=== PATIENT | female | born 1955 | race African-American/Black ===

== ENCOUNTER 2019-07-26 12:54 | Observation (INO) | payer MEDICARE, MEDICAID ==
--- NOTE | 2019-07-26 13:30 | RAD ---
Exam: Chest one view HISTORY:Right-sided weakness. Facial droop. Comparison: 01/09/2015 FINDINGS: Cardiac silhouette:Cardiomegaly. A left-sided transvenous pacemaker. Aorta: Atherosclerosis of the aortic knob Pulmonary vessels: Normal Costophrenic angles: Clear LUNGS: No masses or consolidation. Pneumothorax: None Osseous abnormalities: None IMPRESSION: 1. No acute cardiopulmonary process. 2. Atherosclerosis.
[2019-07-26 15:07] LABS: Bacteria/HPF 2+ HPF (None Seen); Bilirubin Negative (Negative); Blood, Urine Negative (Negative); Clarity Clear (Clear); Glucose, Urine (Dipstick) 30 mg/dL (Negative); Leukocyte Negative Leu/uL (Negative); Nitrite Negative (Negative); Protein, Urine (Dipstick) 300 mg/dL (Neg-Trace); RBC/HPF 0-3 HPF (0-3); Squamous Epithelial 0-3 HPF (0-3); Urobilinogen Normal mg/dL (Less than 2); WBC/HPF 0-3 HPF (0-3)
[2019-07-26 15:51] LABS: #Basophils 0.1 thou/uL (0.0-0.2); #Eosinphils 0.4 thou/uL (0.0-0.7); #Lymphocytes 1.9 thou/uL (1.20-3.40); #Monocytes 0.4 thou/uL (0.11-0.59); #Neutrophils 7.5 thou/uL (1.40-6.50); %Basophils 0.9 % (0.0-1.0); %Eosinophils 3.6 % (0.0-10.0); %Lymphocytes 18.7 % (21.0-51.0); %Monocytes 3.4 % (0.0-10.0); %Neutrophils 73.3 % (42.0-75.0); Hemoglobin 11.5 g/dL (12.0-16.0); Mean Corpuscular HGB CONC 31.6 g/dL (32.0-36.0); Mean Corpuscular Volume 88.6 fL (78.0-98.0); Platelet Count 188 thou/uL (130-400); RBC Distribution Width 14.3 % (11.5-14.5); Red Blood Cell (RBC) Count 4.11 mill/uL (4.20-5.40); White Blood Cell (WBC) Count 10.3 thou/uL (4.8-10.8)
[2019-07-26] MEDS ORDERED: Aspirin 300 MG Suppository ONE (15:53)
[2019-07-26 16:00] LABS: INR-International Normal Ratio 1.1; PTT 29.2 SEC (22.9-36.1); Prothrombin Time 13.9 SEC (12.0-14.7)
[2019-07-26 16:06] LABS: ALT (SGPT) 8 U/L (8-55); AST (SGOT) 15 U/L (5-34); Albumin 3.6 g/dL (3.4-4.8); Alkaline Phosphatase 109 U/L (40-110); Anion Gap 10 mmol/L (10-20); BUN (Urea Nitrogen) 34 mg/dL (9.8-20.1); Bilirubin, Total 0.3 mg/dL (0.2-1.2); CK (CPK) 61 U/L (29-168); Calc. Creatinine Clearance 0 mL/min (70-130); Calcium 8.5 mg/dL (7.8-10.44); Carbon Dioxide 23 mmol/L (23-31); Chloride 112 mmol/L (98-107); Estimated GFR-MDRD 25; Globulin 3.7 g/dL (2.4-3.5); Glucose 132 mg/dL (80-115); Potassium 5.3 mmol/L (3.5-5.1); Protein, Total 7.3 g/dL (6.0-8.3); Sodium 140 mmol/L (136-145)
[2019-07-26 16:15] LABS: CKMB 1.3 ng/mL (0-6.6)
[2019-07-26] MEDS ORDERED: Acetaminophen 650 MG Suppository PR PRN (17:44)
[2019-07-26] MEDS ORDERED: Bisacodyl 5 MG TAB PO PRN (17:44)
[2019-07-26] MEDS ORDERED: Acetaminophen 325 MG TAB PO PRN ×2 (17:44→20:50)
[2019-07-26] MEDS ORDERED: Dextrose 50% Abboject 50 ML SYRINGE SLOW IVP PRN (18:09)
[2019-07-26] MEDS ORDERED: Dextrose 5% in Water 1,000 ML IV PRN (18:09)
[2019-07-26] MEDS ORDERED: HumaLOG 300 UNITS/3 ML VIAL SC PRN (18:09)
--- NOTE | 2019-07-26 18:31 | HP ---
PRIMARY CARE PROVIDER: Angelica Feliciano MD CHIEF COMPLAINT: Slurred speech. HISTORY OF PRESENT ILLNESS: Ms. Dumont is a pleasant 64-year-old lady, who was seen at [facility] on July 26, 2019. She is bedbound and lives at [facility]. Her sisters are with her in the emergency room. They provided most of the history. The patient is also able to verbalize, although she does have some word-finding difficulty. The patient's sisters report that her baseline is that she is bedbound and has difficulty speaking, but they report that her speech is worse today. She also reports that she had a hemorrhagic stroke about 8 or 10 years ago and since then has been at [facility]. The patient denies any chest pain or shortness of breath. She denies any nausea or vomiting. She denies any abdominal pain. REVIEW OF SYSTEMS: All systems were reviewed and found to be negative except for the pertinent positives mentioned above. 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 PAST SURGICAL HISTORY: Hysterectomy, PEG tube placement and subsequent removal, cardiac catheterization, and pacemaker insertion for sick sinus syndrome. SOCIAL HISTORY: No history of tobacco use, alcohol use, or recreational drug use. FAMILY HISTORY: No family history of premature coronary artery disease. ALLERGIES: NO KNOWN DRUG ALLERGIES. CURRENT MEDICATIONS: 1. Acetaminophen p.r.n. 2. Aspirin 81 mg daily. 3. Hydralazine 50 mg 3 times a day. 4. Iron 325 mg daily. 5. Lantus insulin 10 units subcutaneously daily. 6. Levetiracetam 500 mg 2 times a day. 7. MiraLAX 17 g daily. 8. Sertraline 50 mg daily. 9. Simvastatin 10 mg at bedtime. 10. Zofran p.r.n. 11. Vitamin B complex one tablet daily. 12. Senokot S one tablet daily. 13. Procardia XL 60 mg 2 times a day. 14. Artificial Tears p.r.n. 15. Bisacodyl rectally p.r.n. 16. Chlorhexidine mouthwash. 17. Coreg 3.125 mg 2 times a day and p.r.n. PHYSICAL EXAMINATION: GENERAL: On examination, Ms. Dumont is awake and alert, not in acute distress. VITAL SIGNS: Blood pressure is 149/93, pulse 80, respiratory rate 14, and oxygen saturation 100% on room air, and she is afebrile. EYES: No scleral icterus. No conjunctival pallor. ENT: Moist mucosal membranes. No oropharyngeal erythema or exudates. NECK: Supple, nontender. Trachea is midline. RESPIRATORY: Accessory muscles of breathing are not active. Chest wall movements are symmetric bilaterally. Lungs are clear to auscultation without wheeze, rhonchi, or crepitations. CARDIOVASCULAR: S1 and S2 are heard, regular. Peripheral pulses palpable. ABDOMEN: Soft, distended, nontender. Bowel sounds heard. NEUROLOGIC: The patient has word-finding difficulty. The patient has slight left facial droop. Otherwise, cranial nerves II through XII are intact. Power is 4/5 in the right upper extremity, 3/5 in both lower extremities and 3/5 in the left upper extremity. Deep tendon reflexes are 2+, plantars downgoing bilaterally. MUSCULOSKELETAL: Power in the 4 extremities as described above. SKIN: No rashes or subcutaneous nodules. LYMPHATIC: No cervical lymphadenopathy. PSYCHIATRIC: Normal mood. Normal affect. The patient is oriented to person and to place, not to time. LABORATORY DATA: Ms. Dumont's labs and investigations were reviewed. I reviewed her electrocardiogram, which shows junctional rhythm with a ventricular rate of 60. I do not find pacemaker spikes. I also reviewed her chest x-ray, which does not show any pulmonary infiltrates. She had noncontrast CT scan of the brain, which did not show any acute findings. She has an unremarkable CBC. INR 1.1. Elevated potassium of 5.3, normal sodium, elevated blood urea nitrogen of 34, elevated creatinine of 2.37, last known creatinine 2.43 in December 2014. Indeterminate troponin I of 0.124, she had indeterminate troponins in the past as well. Urinalysis that is negative for nitrite and leukocyte esterase. ASSESSMENT AND PLAN: Ms. Dumont is a pleasant 64-year-old lady, who was seen at [facility] on July 26, 2019. Her problem list includes: 1. Slurred speech: Family reports that her speech is slurred compared to her baseline, and it started earlier today. She was not a candidate for tPA administration according to emergency room physician. She had a noncontrast CT scan of the brain, which was fairly unremarkable. She will be admitted to the hospital for further management. We will check 2D echocardiogram and carotid Dopplers. Cannot obtain MRI because of pacemaker. We will consult Neurology Service for opinion and help with management. We will continue her aspirin for now. We will also continue statin once the dose is clarified. 2. Diabetes mellitus, type 2: We will start Accu-Cheks and insulin sliding scale. 3. Hypertension: We will resume home medications, monitor vital signs and titrate antihypertensives as needed. 4. Chronic kidney disease, stage 4: Appears stable. 5. Seizure disorder: Continue Keppra. 6. History of congestive heart failure: Continue furosemide. 7. Dyslipidemia: Continue simvastatin. 8. History of lupus: Appears to be stable. 9. Interrogate pacemaker. Many thanks for allowing me to participate in your patient's care. Please feel free to contact me with any questions or concerns. LEVEL OF RISK: High. LEVEL OF COMPLEXITY: High. Job ID: [id number]
[2019-07-26 20:20] VITALS: BMI 33.9
[2019-07-26] MEDS ORDERED: BISACODYL 10 MG PR PRN (20:50)
[2019-07-26] MEDS ORDERED: Senokot S 8.6-50 MG TAB PO PRN (20:50)
[2019-07-26] MEDS ORDERED: Ondansetron ODT 4 MG TAB PO PRN (20:50)
[2019-07-26] MEDS ORDERED: Artificial Tears 18 DROP/0.9 ML EA EYE PRN (20:50)
[2019-07-26] MEDS ORDERED: Bisacodyl 10 MG SUPP PR PRN (20:57)
[2019-07-26] MEDS ORDERED: Simvastatin 20 MG TAB PO SCH (21:00)
[2019-07-26] MEDS ORDERED: Non-Formulary Item 1 EACH (Insulin Glargine,Hum.Rec.Anlog [Lantus Solostar] 10 UNIT) SC SCH (21:00)
[2019-07-26] MEDS ORDERED: Insulin Glargine 10 UNITS in Pre-Filled Syringe 1 EACH SC SCH (22:00)
[2019-07-26] MEDS ORDERED: Chlorhexidine Gluconate 15 ML UDCUP SSP SCH (22:00)
[2019-07-26] MEDS ORDERED: NIFEdipine XL 60 MG TAB PO SCH (22:00)
[2019-07-26] MEDS: Carvedilol 3.125 MG TAB PO SCH (22:14)
[2019-07-26] MEDS: levETIRAcetam 500 MG TAB PO SCH (22:14)
[2019-07-26] MEDS: hydrALAZINE 25 MG TAB PO SCH (22:14)
[2019-07-26] MEDS: Ferrous Sulfate 325 MG TAB PO SCH (22:14)
[2019-07-27 06:15] LABS: Mean Corpuscular Volume 87.4 fL (78.0-98.0); Mean Platelet Volume 10.2 fL (7.4-10.4); Platelet Count 146 thou/uL (130-400); RBC Distribution Width 14.3 % (11.5-14.5); Red Blood Cell (RBC) Count 3.93 mill/uL (4.20-5.40); White Blood Cell (WBC) Count 10.3 thou/uL (4.8-10.8)
[2019-07-27 06:29] LABS: Anion Gap 11 mmol/L (10-20); BUN (Urea Nitrogen) 33 mg/dL (9.8-20.1); Calc. Creatinine Clearance 35 mL/min (70-130); Calcium 8.3 mg/dL (7.8-10.44); Carbon Dioxide 21 mmol/L (23-31); Cardiac Risk 3.1 (Less than 4.5); Chloride 113 mmol/L (98-107); Cholesterol 118 mg/dl (< 200 Desired); Estimated GFR-MDRD 27; Glucose 88 mg/dL (80-115); HDL Cholesterol 38 mg/dL (>60 Neg Risk); LDL Cholesterol, Calculated 63 mg/dL; Potassium 4.6 mmol/L (3.5-5.1); Sodium 140 mmol/L (136-145); Triglycerides 85 mg/dL (Less than 150)
[2019-07-27 07:01] LABS: Eosinophils 4 % (0-10); Lymphocytes 28 % (21-51); MDiff Complete? YES; Monocytes 9 % (0-10); Neutrophil 59 % (42-75)
[2019-07-27] MEDS: levETIRAcetam 500 MG TAB PO SCH (08:33)
[2019-07-27] MEDS: hydrALAZINE 25 MG TAB PO SCH ×2 (08:33→16:10)
[2019-07-27] MEDS: Carvedilol 3.125 MG TAB PO SCH (08:33)
[2019-07-27] MEDS: Ferrous Sulfate 325 MG TAB PO SCH (08:34)
--- NOTE | 2019-07-27 08:38 | ULT ---
Carotid duplex sonogram HISTORY: CVA. Vascular disease. FINDINGS: Right: Minimal plaque. Color and spectral Doppler evaluation, peak systolic velocity of 101 cm/s, and IC to CC ratio of 1.5 suggest no hemodynamically significant stenosis within the extracranial right ICA. Antegrade flow within the vertebral artery. Left: Mild plaque. Color and spectral Doppler evaluation, peak systolic velocity of 68 cm/s, and IC t o CC ratio 1.1 suggest no hemodynamically significant stenosis within the extracranial left ICA. Antegrade flow within the vertebral artery. IMPRESSION: Atherosclerosis. No sonographic evidence of significant extracranial ICA stenosis.
[2019-07-27] MEDS ORDERED: Chlorhexidine Gluconate 15 ML UDCUP SSP SCH (09:00)
[2019-07-27] MEDS ORDERED: NIFEdipine XL 60 MG TAB PO SCH (09:00)
[2019-07-27] MEDS ORDERED: Aspirin 81 mg Enteric Coated Tablet PO SCH ×2 (09:00)
[2019-07-27] MEDS ORDERED: Polyethylene Glycol 3350 17 GM Packet PO SCH (09:00)
[2019-07-27] MEDS ORDERED: Stress 600 With Zinc 1 TAB PO SCH (09:00)
[2019-07-27 12:17] VITALS: TEMP 98
--- NOTE | 2019-07-27 14:16 | CON ---
DATE OF TELEMEDICINE CONSULTATION WITH WILLIAM MATUTE: 07/27/2019 CHIEF COMPLAINT: Possible acute stroke. HISTORY OF PRESENT ILLNESS: The patient came from a fdc and she is mostly bedridden at baseline. She has difficulty with speaking on getting the right words out, but family brought her here to the hospital for worsening of speech. She had a hemorrhagic stroke a few years ago and results of that is her bedridden state and she lives in [facility]. No history of any numbness or tingling. I do not think, she is a reliable historian based on her difficulty with expressive aphasia. PREVIOUS MEDICAL HISTORY: Congestive heart failure, diabetes type 2, hypertension, seizure disorder, lupus and chronic diastolic heart failure, hypertensive heart disease, dyslipidemia, left thalamic hemorrhagic stroke with residual right- sided weakness and dysarthria. PAST SURGICAL HISTORY: Hysterectomy, PEG tube placement and then removal, cardiac cath and pacemaker insertion for sick sinus syndrome. SOCIAL HISTORY: Nonsmoker. No alcohol. Lives at a fdc. FAMILY HISTORY: Unknown, but it states there is no known family history of coronary artery disease in the family per her chart. ALLERGIES: NO KNOWN DRUG ALLERGIES. MEDICATIONS: At home; 1. Aspirin 81 mg for stroke prophylaxis. 2. She is also on Procardia. 3. Senokot. 4. Coreg. 5. MiraLAX. 6. Sertraline. 7. Simvastatin 10 mg. 8. Tylenol PM. 9. Hydralazine. 10. Iron. REVIEW OF SYSTEMS: PULMONARY: Negative for cough or shortness of breath. GI: Negative for nausea, vomiting, or diarrhea. NEUROLOGIC: Positive for worsening of speech. DERMATOLOGIC: Negative for any skin rash. OPHTHALMOLOGIC: Negative for any vision symptoms. LABORATORY DATA: White count 10.3, hemoglobin 11, hematocrit 34.3, platelet count 146. Coags within normal range. Chemistry; sodium 140, potassium 4.6, chloride 113, bicarb 21, BUN 33, creatinine 2.19, and glucose 113. Lipid profile within normal limits. PHYSICAL EXAMINATION: VITAL SIGNS: Temperature was 98, blood pressure 176/59, pulse is 63. GENERAL APPEARANCE: Thin built well-nourished lady, who is comfortable in bed and is responsive and talks. She has expressive aphasia. CHEST: Clear vesicular breathing. CARDIOVASCULAR: S1 and S2 heard. No murmurs. ABDOMEN: Soft. NEUROLOGICAL: Higher intellectual function. She has some aphasia, therefore, has difficulty with communicating well. She can say the words, but cannot complete full sentences properly, which is my observation. She also had difficulty with orientation to place, person, and time. She kept saying she was at [facility]. Cranial nerves, pupils 3 mm bilaterally. Extraocular movements were normal and normal sensation of face bilaterally. She had right facial droop. Tongue midline. No atrophy noted. Normal elevation of palate. Motor exam, bulk normal; tone, contracture in the left hand and elbow, has also contracture in the left leg. This seems to be old finding. Motor exam strength lee. Deltoid 3, triceps 3, biceps 4, wrist extension 3, wrist flexion 2, finger extension and flexion 0, iliopsoas 4, hamstrings 4, quadriceps 4, ankle dorsiflexion and plantar flexion 3. All of this is on as noted on the left side. On the right side, deltoid 5, triceps 4, biceps 5, wrist extension 4, wrist flexion 5, finger extension 5, finger flexion 5; iliopsoas, hamstrings, quadriceps, ankle dorsiflexion, plantar flexion were 5 on the right side. She also had eversion of her left foot and contractures. Deep tendon reflexes 3+ at knee jerks, right ankle 3+, left ankle 4-beat clonus and upper extremities 2+ bilaterally. Sensory is normal bilaterally. Cerebellar was difficult for her to perform, but there was no cerebellar signs noted. IMPRESSION: The patient is a 64-year-old lady, who is currently waiting on her MRI scan this morning at the time of my evaluation and she did not have a CT of the head here, but had an outside film which I did not have access to. At this time due to difficulty and inability to obtain an MRI scan, the patient may have had a minor dysarthric event and we are unable to establish definite stroke. At this time, diagnosis is likely TIA and she has a right-sided and left-sided weakness with contractures bilaterally, likely due to bedridden state. RECOMMENDATIONS: Please give her aspirin 325 mg per day and also give her 20 mg of statin, and she can see the neurologist, Dr. Jones, as outpatient. Job ID: [id number] [facility]
[2019-07-27 16:15] VITALS: BP 135/51
--- NOTE | 2019-07-27 16:28 | DIS ---
DATE OF ADMISSION: 07/26/2019 DATE OF DISCHARGE: 07/27/2019 PRIMARY CARE PROVIDER: Angelica Feliciano MD DISCHARGE DIAGNOSIS: Transient ischemic attack. CONDITION: Condition of patient at the time of discharge: Stable. I assessed Ms. Dumont on the day of discharge. She denies any chest pain or shortness of breath. Vital signs are stable. S1 and S2 are heard, regular. Lungs are clear to auscultation bilaterally. FOLLOWUP APPOINTMENTS: With primary care provider in 3 days' time. CONSULTATIONS DURING THIS HOSPITALIZATION: Neurology, Dr. Zahra Faria. HOSPITAL COURSE: Ms. Dumont is a pleasant 64-year-old lady, who was admitted to [facility] on July 26, 2019, for slurred speech. Please refer to my history and physical note dated July 26, 2019, for further details. Her speech improved following admission. She was seen by Neurology Service. She had carotid Dopplers, which did not show any hemodynamically significant stenosis. She also had a 2D echocardiogram. The report is pending at the time of this dictation. She is advised to follow up with primary care provider for the results. She did not have an MRI because she has a pacemaker. Pacemaker was also interrogated and there were no significant findings. Neurology Service recommended increasing her aspirin dose to 325 mg daily. DISCHARGE MEDICATIONS: Aspirin dose has been increased to 325 mg daily. Otherwise, no change was made to her pre-admission home medications as dictated on my history and physical note dated July 26, 2019. Many thanks for allowing me to participate in your patient's care. Please feel free to contact me with any questions or concerns. DISCHARGE DESTINATION: [facility], from where the patient was admitted to the hospital. Job ID: [id number]
[2019-07-27] MEDS ORDERED: Insulin Glargine 10 UNITS in Pre-Filled Syringe 1 EACH SC SCH (21:00)
== END 2019-07-27 17:10 ==
LOC: ERS 12:54 → 2SE 17:09
PROVIDERS: ADMIT Internal Medicine; ATTEND Internal Medicine
DX: G45.9 Transient cerebral ischemic attack, unspecified (principal); I13.0 Hypertensive heart and chronic kidney disease with heart failure and stage 1 through stage 4 chronic kidney disease, or unspecified chronic kidney disease; E11.22 Type 2 diabetes mellitus with diabetic chronic kidney disease; N18.4 Chronic kidney disease, stage 4 (severe); I50.32 Chronic diastolic (congestive) heart failure; G40.909 Epilepsy, unspecified, not intractable, without status epilepticus; M32.9 Systemic lupus erythematosus, unspecified; E78.5 Hyperlipidemia, unspecified; I69.351 Hemiplegia and hemiparesis following cerebral infarction affecting right dominant side; I70.0 Atherosclerosis of aorta; Z74.01 Bed confinement status; Z79.4 Long term (current) use of insulin; Z79.82 Long term (current) use of aspirin; Z79.899 Other long term (current) drug therapy; Z95.0 Presence of cardiac pacemaker
CPT/HCPCS: 36415; 36416; 51701; 71045; 80048; 80053; 80061; 81003; 81015; 82550; 82553; 84484; 85025; 85610; 85730; 86850; 86900; 86901; 93005; 93306; 93880; A4353; G0378; J1815; J7620

== ENCOUNTER 2019-08-18 12:02 | Inpatient (IN) | payer MEDICARE, MEDICAID ==
[2019-08-18] MEDS ORDERED: Albuterol Sulfate 2.5 mg/3 ml Neb ONE (12:36)
[2019-08-18] MEDS ORDERED: Piperacillin/Tazobactam 2.25 GM VIAL ONE (12:43)
[2019-08-18] MEDS ORDERED: Ondansetron PF 4 MG/2 ML Vial ONE (12:43)
--- NOTE | 2019-08-18 12:44 | RAD ---
Portable chest: HISTORY: Dyspnea. Decreased oxygen saturation. COMPARISON: 07/26/2019 FINDINGS:Cardiomegaly and mild vascular congestion. New right perihilar infiltrate when compared to p rior study. Evidence of bilateral effusions and bibasilar atelectasis or infiltrates. IMPRESSION:There are new infiltrates when compared to the recent exam.
[2019-08-18 12:59] LABS: #Eosinphils 0.2 thou/uL (0.0-0.7); #Lymphocytes 2.1 thou/uL (1.20-3.40); #Monocytes 0.8 thou/uL (0.11-0.59); %Basophils 0.2 % (0.0-1.0); %Eosinophils 1.2 % (0.0-10.0); %Lymphocytes 14.8 % (21.0-51.0); %Monocytes 5.4 % (0.0-10.0); %Neutrophils 78.5 % (42.0-75.0); Mean Corpuscular HGB CONC 31.4 g/dL (32.0-36.0); Mean Corpuscular Hemoglobin 27.9 pg (27.0-31.0); Mean Corpuscular Volume 88.7 fL (78.0-98.0); Mean Platelet Volume 10.5 fL (7.4-10.4); Platelet Count 175 thou/uL (130-400); RBC Distribution Width 14.1 % (11.5-14.5); Red Blood Cell (RBC) Count 3.95 mill/uL (4.20-5.40); White Blood Cell (WBC) Count 14.1 thou/uL (4.8-10.8)
[2019-08-18 13:04] LABS: Bilirubin Negative (Negative); Blood, Urine Trace (Negative); Clarity Turbid (Clear); Glucose, Urine (Dipstick) 30 mg/dL (Negative); Leukocyte Negative Leu/uL (Negative); Nitrite Negative (Negative); Protein, Urine (Dipstick) 300 mg/dL (Neg-Trace); Squamous Epithelial 0-3 HPF (0-3); Urobilinogen Normal mg/dL (Less than 2)
[2019-08-18 13:08] LABS: ALT (SGPT) 10 U/L (8-55); AST (SGOT) 16 U/L (5-34); Albumin 3.6 g/dL (3.4-4.8); Alkaline Phosphatase 107 U/L (40-110); Anion Gap 14 mmol/L (10-20); BUN (Urea Nitrogen) 31 mg/dL (9.8-20.1); Bilirubin, Total 0.6 mg/dL (0.2-1.2); Calc. Creatinine Clearance 0 mL/min (70-130); Calcium 8.6 mg/dL (7.8-10.44); Carbon Dioxide 22 mmol/L (23-31); Chloride 108 mmol/L (98-107); Estimated GFR-MDRD 21; Globulin 4.1 g/dL (2.4-3.5); Glucose 128 mg/dL (80-115); Lipase 28 U/L (8-78); Potassium 4.5 mmol/L (3.5-5.1); Protein, Total 7.7 g/dL (6.0-8.3); Sodium 139 mmol/L (136-145)
[2019-08-18 13:17] LABS: Bacteria/HPF None Seen HPF (None Seen)
[2019-08-18 13:34] LABS: CKMB 0.9 ng/mL (0-6.6)
[2019-08-18] MEDS ORDERED: Vancomycin HCl 1.5 GM in Sodium Chloride 0.9% 250 ML 300 ML IVPB SCH (14:30)
[2019-08-18] MEDS ORDERED: Acetaminophen 650 MG Suppository ONE (15:27)
[2019-08-18] MEDS ORDERED: Acetaminophen 325 MG Suppository ONE (15:27)
[2019-08-18 16:28] LABS: Troponin I 0.202 ng/mL (< 0.028)
[2019-08-18] MEDS ORDERED: Acetaminophen 650 MG Suppository PR PRN (16:57)
[2019-08-18] MEDS ORDERED: HumaLOG 300 UNITS/3 ML VIAL SC PRN ×2 (16:57)
[2019-08-18] MEDS ORDERED: Guaifenesin DM 100-10/5 ML UDCUP PO PRN (16:57)
[2019-08-18] MEDS ORDERED: Bisacodyl 10 MG SUPP PR PRN (16:57)
[2019-08-18] MEDS ORDERED: Senokot S 8.6-50 MG TAB PO PRN ×2 (16:57→17:26)
[2019-08-18] MEDS ORDERED: Dextrose 50% Abboject 50 ML SYRINGE SLOW IVP PRN (16:57)
[2019-08-18] MEDS ORDERED: Dextrose 5% in Water 1,000 ML IV PRN (16:57)
--- NOTE | 2019-08-18 17:35 | HP ---
REASON FOR ADMISSION: Acute respiratory failure with hypoxia, possible pneumonia, and mild CHF exacerbation, likely diastolic dysfunction. HISTORY OF PRESENTING ILLNESS: Please note majority of this history is obtained by talking to ER physician and custodial records as the patient is currently on BiPAP. She apparently was saturating 83% at the custodial when she developed sudden onset of shortness of breath. She lives at [facility]. It is unclear if she aspirated. She has had known history of prior CVA with left hemiplegia. The patient apparently swallows well per sister, who is here at bedside. She is currently waking up and is responding to verbal questions. She does not recall what really happened at the custodial. Currently, she is feeling comfortable on BiPAP and is tolerating it well. She had a temperature of 100.1 degrees rectal in the ER. PAST MEDICAL AND SURGICAL HISTORY: History of CVA with left hemiplegia; history of lupus; chronic paroxysmal atrial fibrillation; history of CHF; diabetes mellitus , type 2; dyslipidemia; obesity; hypertension; history of CKD; hysterectomy; prior cardiac catheterization; history of seizures; the last known ejection fraction of 65% to 70% with diastolic dysfunction; pacemaker placement; vitamin D deficiency ; PEG tube, which was removed. CURRENT MEDICATIONS: Per custodial record, the patient is on, 1. Aspirin 325 mg p.o. daily. 2. MiraLAX 17 g daily. 3. Senokot S one tablet daily. 4. Sertraline 50 mg p.o. daily. 5. Simvastatin 10 mg p.o. daily. 6. Multivitamin one tablet once daily. 7. Zoloft 25 mg p.o. daily. 8. Coreg 3.125 mg p.o. twice daily. 9. Keppra 500 mg p.o. twice daily. 10. Procardia XL 60 mg p.o. daily. 11. Hydralazine 50 mg p.o. three times daily. 12. Lantus 10 units subcu at bedtime. 13. DuoNeb q.4 hourly p.r.n. ALLERGIES: NO KNOWN DRUG ALLERGIES. PERSONAL HISTORY: Does not abuse alcohol or drugs. The patient is currently a resident of [facility]. FAMILY HISTORY: The patient is single, had a daughter who of heart failure at the age of 45 years. No history of smoking, alcohol usage or drugs. Mother is still living. Father has history of coronary artery disease. CODE STATUS: Do not attempt to resuscitate. This was discussed with the patient's mom and power of mergers and acquisitions attorney is her twin sister, Ms. Kenneth Dumont, number to reach her is [phone]. Mother's phone number is [phone]. REVIEW OF SYSTEMS: CONSTITUTIONAL: Negative for weight loss or gain, ability to conduct usual activities. SKIN: Negative for rash, itching. EYES: Negative for double vision, pain. ENT/MOUTH: Negative for nose bleeding, neck stiffness, pain, tenderness. CARDIOVASCULAR: Negative for palpitations, dyspnea on exertion, orthopnea. RESPIRATORY: Negative for shortness of breath, wheezing, cough, hemoptysis, fever or night sweats. GASTROINTESTINAL: Negative for poor appetite, abdominal pain, heartburn, nausea , vomiting, constipation, or diarrhea. GENITOURINARY: Negative for urgency, frequency, dysuria, nocturia. MUSCULOSKELETAL: Negative for pain, swelling. NEUROLOGIC/PSYCHIATRIC: Negative for anxiety, depression. ALLERGY/IMMUNOLOGIC: Negative for skin rash, bleeding tendency. PHYSICAL EXAMINATION: GENERAL: The patient is a 64-year-old female, who is currently in moderate respiratory distress, but is stable on BiPAP. VITAL SIGNS: Blood pressure 136/68, pulse 64 per minute, respiratory rate 18 per minute, temperature 100.1 degrees rectal, saturating 96% on BiPAP. NECK: Supple. No elevated JVD. HEENT: Eyes; extraocular muscles intact. Pupils are reacting to light. Oral cavity, mucous membranes are dry. No exudates or congestion. CARDIOVASCULAR SYSTEM: S1 and S2 heard. Regular rhythm. RESPIRATORY: Air entry 1+ bilateral. Scattered rales, plus bilateral. Wheezes , plus bilateral. ABDOMEN: Soft. Bowel sounds heard. No tenderness, rigidity, or guarding. EXTREMITIES: No peripheral edema or calf tenderness. VASCULAR SYSTEM: Peripheral pulses 1+ bilateral. No ischemic ulcerations or gangrene. CENTRAL NERVOUS SYSTEM: The patient has left hemiplegia. She in fact has dense plegia on the left upper extremity than lower extremity. She is able to lift her left lower extremity above gravity, but not too high up to around 30 to 45 degrees above bed. Right upper and lower extremity strength is 5/5. PSYCHIATRIC SYSTEM: No obvious hallucinations or delusions. LABORATORY DATA: EKG done shows sinus rhythm at 62 beats per minute. It is low-voltage EKG. QRS duration is 100 milliseconds. Corrected QT is 454 milliseconds. White count of 14, H and H 11 and 35, platelet count is 175 with 78% neutrophils, MCV is 88. BUN is 31, creatinine 2.7, serum bicarb 22. Troponin I is indeterminate, peaking up to 0.20; CK-MB 0.9. Albumin is 3.6. BNP 674. Influenza A and B antigens are negative. Chest x-ray shows a new infiltrate in the perihilar area. CLINICAL IMPRESSION AND PLAN: The patient will be admitted to [facility] for acute respiratory failure with hypoxia. She has new infiltrates, likely pneumonia versus aspiration pneumonia. The patient apparently eats by herself. She had prior percutaneous endoscopic gastrostomy tube, which was removed. She has had prior cerebrovascular accident with left hemiplegia. She does not ambulate and she is a [facility] resident. She will be on cefepime and Levaquin, and gentle hydration with normal saline at 70 mL per hour for a total of 1 L. Her recent echocardiogram showed good ejection fraction with concentric left ventricular hypertrophy, likely diastolic dysfunction. We will obtain Physical Therapy, Occupational Therapy, and Speech evaluations. We will also consult Dr. Jiang, who is on-call for Pulmonology. Blood and urine cultures have been obtained. Likely, the patient will come off BiPAP soon. We will also obtain an arterial blood gas for baseline. Job ID: [id number] MTDD
[2019-08-18] MEDS ORDERED: Cefepime 1 GM VIAL ONE (18:21)
[2019-08-18] MEDS: Sodium Chloride 0.9% 1,000 ML IV SCH (18:30)
[2019-08-18] MEDS: Cefepime 1 GM in Sodium Chloride 0.9% 100 ML IVPB SCH (18:30)
[2019-08-18] MEDS ORDERED: Insulin Glargine 10 UNITS in Pre-Filled Syringe 1 EACH SC SCH (21:00)
[2019-08-18] MEDS ORDERED: Non-Formulary Item 1 EACH (Insulin Glargine,Hum.Rec.Anlog [Lantus Solostar] 10 UNIT) SC SCH (21:00)
[2019-08-18 22:23] VITALS: BMI 32.3
[2019-08-18] MEDS: levETIRAcetam 500 MG TAB PO SCH (22:57)
[2019-08-18] MEDS: Carvedilol 3.125 MG TAB PO SCH (22:57)
[2019-08-18] MEDS: hydrALAZINE 25 MG TAB PO SCH (22:57)
[2019-08-18] MEDS: Simvastatin 5 MG TAB PO SCH (22:57)
[2019-08-18] MEDS: NIFEdipine XL 60 MG TAB PO SCH (22:57)
[2019-08-18] MEDS: Famotidine/PF 20 mg/2ml Vial SLOW IVP SCH (23:25)
[2019-08-19 05:06] LABS: #Lymphocytes 1.2 thou/uL (1.20-3.40); #Monocytes 0.6 thou/uL (0.11-0.59); #Neutrophils 12.6 thou/uL (1.40-6.50); %Basophils 0.3 % (0.0-1.0); %Eosinophils 0.2 % (0.0-10.0); %Lymphocytes 8.4 % (21.0-51.0); %Neutrophils 87.2 % (42.0-75.0); Hemoglobin 10.7 g/dL (12.0-16.0); Mean Corpuscular HGB CONC 30.9 g/dL (32.0-36.0); Mean Corpuscular Hemoglobin 27.9 pg (27.0-31.0); Mean Corpuscular Volume 90.4 fL (78.0-98.0); Mean Platelet Volume 9.7 fL (7.4-10.4); Platelet Count 148 thou/uL (130-400); RBC Distribution Width 14.2 % (11.5-14.5); Red Blood Cell (RBC) Count 3.82 mill/uL (4.20-5.40); White Blood Cell (WBC) Count 14.4 thou/uL (4.8-10.8)
[2019-08-19 05:24] LABS: Anion Gap 13 mmol/L (10-20); BUN (Urea Nitrogen) 37 mg/dL (9.8-20.1); Calc. Creatinine Clearance 30 mL/min (70-130); Calcium 8.4 mg/dL (7.8-10.44); Carbon Dioxide 20 mmol/L (23-31); Chloride 111 mmol/L (98-107); Estimated GFR-MDRD 22; Glucose 217 mg/dL (80-115); Potassium 5.2 mmol/L (3.5-5.1); Sodium 139 mmol/L (136-145)
[2019-08-19] MEDS: Sodium Chloride 0.9% 1,000 ML IV SCH (09:46)
[2019-08-19] MEDS: NIFEdipine XL 60 MG TAB PO SCH (09:46)
[2019-08-19] MEDS: Enoxaparin Sodium 30 MG/0.3 ML SYRINGE SC SCH (09:46)
[2019-08-19] MEDS: Carvedilol 3.125 MG TAB PO SCH ×2 (09:47→20:43)
[2019-08-19] MEDS: hydrALAZINE 25 MG TAB PO SCH ×2 (09:47→15:02)
[2019-08-19] MEDS: Aspirin 325 mg Enteric Coated Tablet PO SCH (09:47)
[2019-08-19] MEDS: levETIRAcetam 500 MG TAB PO SCH ×2 (09:48→20:43)
[2019-08-19] MEDS: Polyethylene Glycol 3350 17 GM Packet PO SCH (09:48)
[2019-08-19] MEDS: Stress 600 With Zinc 1 TAB PO SCH (09:48)
[2019-08-19] MEDS: Ferrous Sulfate 325 MG TAB PO SCH ×2 (09:48→17:46)
--- NOTE | 2019-08-19 14:21 | PDOC.HOSPP ---
- Subjective Encounter Date: 08/19/19 Encounter Time: 14:19 Subjective: Patient seen and examined for Resp failure. Mentation improving. No new complaints. No overnight events - Objective Vital Signs & Weight: Vital Signs (12 hours) Temp Pulse Pulse Pulse BP BP BP 08/19/19 11:23 97.4 F L 08/19/19 09:54 62 68 66 124/67 128/48 L 127/83 08/19/19 07:51 08/19/19 07:14 96.5 F L 08/19/19 03:50 97.6 F Pulse Ox Pulse Ox Pulse Ox Pulse Ox 08/19/19 11:23 08/19/19 09:54 99 100 99 08/19/19 07:51 95 08/19/19 07:14 08/19/19 03:50 Weight Weight 194 lb 5.999 oz Most Recent Monitor Data Heart Rate from ECG 60 NIBP 112/45 NIBP BP-Mean 67 Respiration from ECG 17 SpO2 99 I&O: 08/18/19 08/19/19 08/20/19 06:59 06:59 06:59 Intake Total 503 Balance 503 Result Diagrams: 08/20/19 03:08 08/20/19 03:08 Additional Labs: Accuchecks 08/19/19 08/19/19 08/19/19 10:36 05:28 01:22 POC Glucose 143 H 191 H 222 H 08/18/19 22:33 POC Glucose 205 H Radiology Reviewed by me: Yes (CXR - Rt sided infiltrates) EKG Reviewed by me: Yes (Tele SR) Hospitalist ROS - Review of Systems Cardiovascular: denies: chest pain, palpitations, orthopnea, paroxysmal noc. dyspnea, edema, light headedness, other Gastrointestinal: denies: nausea, vomiting, abdominal pain, diarrhea, constipation, melena, hematochezia, other - Medication Medications: Active Medications Generic Name Dose Route Start Last Admin Trade Name Freq PRN Reason Stop Dose Admin Aspirin 325 mg 08/19/19 09:00 08/19/19 09:47 Ecotrin PO 325 mg DAILY KALEB Administration Carvedilol 3.125 mg 08/18/19 21:00 08/19/19 09:47 Coreg PO 3.125 mg BID KALEB Administration Enoxaparin Sodium 30 mg 08/19/19 09:00 08/19/19 09:46 Lovenox SC 30 mg 0900 KALEB Administration Famotidine 20 mg 08/18/19 21:00 08/18/19 23:25 Pepcid SLOW IVP 20 mg 2100 KALEB Administration Ferrous Sulfate 325 mg 08/19/19 08:00 08/19/19 09:48 Feosol PO 325 mg BID-WM KALEB Administration Hydralazine HCl 50 mg 08/18/19 21:00 08/19/19 09:47 Apresoline PO 50 mg TID KALEB Administration Cefepime HCl 1 gm/ Sodium 100 mls @ 200 mls/hr 08/18/19 18:00 08/18/19 18:30 Chloride IVPB 100 mls 1800 KALEB Administration Sodium Chloride 1,000 mls @ 70 mls/hr 08/18/19 17:15 08/19/19 09:46 Normal Saline 0.9% IV 1,000 mls .[id number] KALEB Administration Insulin Glargine 10 units/ 0.1 mls @ 0 mls/hr 08/18/19 21:00 08/18/19 23:25 Miscellaneous Medication SC Not Given HS [facility] Insulin Human Lispro 0 units 08/18/19 16:57 08/19/19 05:59 Humalog SC 2 unit .MODERATE SLIDING SC PRN Administration Moderate Correctional Scale Levetiracetam 500 mg 08/18/19 21:00 08/19/19 09:48 Keppra PO 500 mg BID KALEB Administration Multivitamins/Zinc 1 tab 08/19/19 09:00 08/19/19 09:48 Stress 600 With Zinc PO 1 tab DAILY KALEB Administration Nifedipine 60 mg 08/18/19 21:00 08/19/19 09:46 Procardia Xl PO 60 mg BID KALEB Administration Polyethylene Glycol 17 gm 08/19/19 09:00 08/19/19 09:48 Miralax PO 17 gm DAILY KALEB Administration Sertraline HCl 50 mg 08/19/19 09:00 08/19/19 09:47 Zoloft PO 50 mg DAILY KALEB Administration Simvastatin 10 mg 08/18/19 21:00 08/18/19 22:57 Zocor PO Not Given QPM KALEB - Exam General Appearance: NAD Neck: supple, no JVD Heart: RRR, no gallops, no rubs Heart - other findings: no heaves Respiratory: normal chest expansion, rales, rhonchi Respiratory - other findings: scat wheezing Gastrointestinal: soft, non-tender, non-distended, normal bowel sounds Extremities: no cyanosis, no clubbing, no edema Skin: normal turgor Neurological: no new deficit Psychiatric: normal affect, oriented to person, somnolent Hosp A/P - Plan DVT proph w/lovenox, DVT proph w/SCDs Acute hypoxic resp failure s/p NIPPV Sepsis due to Pneumonia ?Aspiration DHEERAJ on CKD 3 Toxic Metabolic Encephalopathy chronic diastolic heart failure Type 2 LA HTN Dyslipidemia h/o CVA with left hemiplegia Swallow dysfunction PLAN: Cont IV Atbx Repeat CXR in AM AM labs Cont ASA Hold Hydralazine due to BP on lower side Cont Coreg Reduce Procardia XL dose Add D5 to IVF
[2019-08-19] MEDS ORDERED: hydrALAZINE 20 MG/ML VIAL SLOW IVP PRN (15:06)
[2019-08-19] MEDS ORDERED: Dextrose 5 %-0.45 % NaCl 1,000 ML IV SCH (15:15)
[2019-08-19] MEDS: Dextrose 5 %-0.45 % NaCl 1,000 ML IV SCH (15:42)
[2019-08-19] MEDS: Cefepime 1 GM in Sodium Chloride 0.9% 100 ML IVPB SCH (17:47)
[2019-08-19] MEDS: Famotidine/PF 20 mg/2ml Vial SLOW IVP SCH (20:43)
[2019-08-19] MEDS: Simvastatin 5 MG TAB PO SCH (20:44)
[2019-08-19] MEDS: NIFEdipine XL 30 MG TAB PO SCH (20:44)
[2019-08-19] MEDS ORDERED: Prevnar 13-Val Conj/PF 0.5 ML SYRINGE IM ONE (21:00)
[2019-08-19] MEDS ORDERED: FLU VACC TS2019-20(65YR UP)/PF 180 MCG/0.5 ML SYRINGE IM ONE (21:00)
[2019-08-20 03:51] LABS: #Basophils 0.1 thou/uL (0.0-0.2); #Eosinphils 0.2 thou/uL (0.0-0.7); #Lymphocytes 2.2 thou/uL (1.20-3.40); #Monocytes 0.7 thou/uL (0.11-0.59); #Neutrophils 8.7 thou/uL (1.40-6.50); %Basophils 0.6 % (0.0-1.0); %Eosinophils 1.4 % (0.0-10.0); %Lymphocytes 18.4 % (21.0-51.0); %Monocytes 5.8 % (0.0-10.0); %Neutrophils 73.8 % (42.0-75.0); Hemoglobin 9.9 g/dL (12.0-16.0); Mean Corpuscular HGB CONC 31.1 g/dL (32.0-36.0); Mean Corpuscular Hemoglobin 28.3 pg (27.0-31.0); Mean Corpuscular Volume 90.9 fL (78.0-98.0); Platelet Count 160 thou/uL (130-400); RBC Distribution Width 14.2 % (11.5-14.5); Red Blood Cell (RBC) Count 3.49 mill/uL (4.20-5.40); White Blood Cell (WBC) Count 11.8 thou/uL (4.8-10.8)
[2019-08-20 04:19] LABS: ALT (SGPT) 9 U/L (8-55); AST (SGOT) 11 U/L (5-34); Albumin 3.1 g/dL (3.4-4.8); Alkaline Phosphatase 79 U/L (40-110); Anion Gap 12 mmol/L (10-20); BUN (Urea Nitrogen) 17 mg/dL (9.8-20.1); Bilirubin, Total 0.3 mg/dL (0.2-1.2); Calc. Creatinine Clearance 27 mL/min (70-130); Carbon Dioxide 20 mmol/L (23-31); Chloride 116 mmol/L (98-107); Estimated GFR-MDRD 19; Globulin 3.5 g/dL (2.4-3.5); Glucose 116 mg/dL (80-115); Potassium 4.9 mmol/L (3.5-5.1); Protein, Total 6.6 g/dL (6.0-8.3); Sodium 143 mmol/L (136-145)
--- NOTE | 2019-08-20 07:43 | RAD ---
EXAM: Single view of the chest HISTORY: Aspiration pneumonia COMPARISON: 08/18/2019 FINDINGS: Single view of the chest shows an enlarged but stable cardiomediastinal silhouette. The pa cemaker is unchanged in position. Bilateral pulmonary vascular prominence likely represents vascular congestion. Obscurity of the left hemidiaphragm may represent atelectasis versus an infiltra te. The bones are unremarkable. IMPRESSION: Stable exam
[2019-08-20] MEDS ORDERED: Aspirin 300 MG Suppository PR SCH (09:00)
[2019-08-20] MEDS: NIFEdipine XL 30 MG TAB PO SCH ×2 (09:03→21:10)
[2019-08-20] MEDS: Ferrous Sulfate 325 MG TAB PO SCH ×2 (09:03→17:26)
[2019-08-20] MEDS: Stress 600 With Zinc 1 TAB PO SCH (09:05)
[2019-08-20] MEDS: Aspirin 325 mg Enteric Coated Tablet PO SCH (09:05)
[2019-08-20] MEDS: levETIRAcetam 500 MG TAB PO SCH ×2 (09:05→21:10)
[2019-08-20] MEDS: Carvedilol 3.125 MG TAB PO SCH ×2 (09:06→21:10)
[2019-08-20] MEDS: Enoxaparin Sodium 30 MG/0.3 ML SYRINGE SC SCH (09:08)
[2019-08-20] MEDS: Polyethylene Glycol 3350 17 GM Packet PO SCH (09:09)
--- NOTE | 2019-08-20 10:02 | PDOC.PALCO ---
Palliative Care Consult - Consult Details Requesting Physician: Dr Benjamin Reason for Consult: goals of care Family Members Present: none - Pertinent HPI Patient is a resident at [facility]. She has evidently had an episode of respiratory distress and was transported to the emergency room, admitted to [facility] for further care and management of febrile episode, need for bipap and suspected pneumonia. - Pertinent PMH History of left CVA with hemiplegia, atrial fib, CHF, diabetes mellitus II, dyslipidemia, obeisty, hypertension, CKD, - Social History Smoking Status: Never smoker Smoking: no tobacco exposure Alcohol Use: none Drug Use History: none Living Situation: [facility] resident - Medications MAR Reviewed: Yes - Allergies Allergies/Adverse Reactions: Allergies Allergy/AdvReac Type Severity Reaction Status Date / Time No Known Drug Allergies Allergy Verified 08/18/19 21:41 - Subjective Patient awake, verbal with delayed speech, left hemiplegia, incontinent. 10 point review of symptoms negative. - Objective Vital Signs: Vital Signs - Most Recent Temp Pulse Resp BP Pulse Ox 99.8 F H 61 25 H 123/46 L 96 08/20/19 07:18 08/20/19 09:03 08/19/19 00:29 08/20/19 09:03 08/20/19 08:03 Palliative Performance Scale: 30 - Physical Exam Constitutional: confusion HEENT: moist MMs, sclera anicteric Respiratory: unlabored breathing Deviation from normal: adventicious lung sounds, wet weak cough Cardiovascular: RRR Gastrointestinal: soft, non-tender, positive bowel sounds Deviation from normal: left hemiplegia Psychiatric: normal affect Deviation from normal: Oriented to self, fair to poor historian Skin: normal turgor - Problem List (1) Palliative care encounter Code(s): Z51.5 - ENCOUNTER FOR PALLIATIVE CARE Current Visit: Yes Status: Acute - Plan/Recommendations Plan: Possible dysphagia. Twin sister is MPOA. Will attempt to establish a family meeting to determine goals of care for patient. Randolph Lund RN to attempt to schedule. [20] minutes spent on this encounter with >50% of the time in counseling and coordination of care. Thank you for this very appropriate consult.
[2019-08-20] MEDS: Dextrose 5 %-0.45 % NaCl 1,000 ML IV SCH (13:41)
[2019-08-20] MEDS: Cefepime 1 GM in Sodium Chloride 0.9% 100 ML IVPB SCH (17:26)
--- NOTE | 2019-08-20 18:23 | PDOC.HOSPP ---
- Subjective Encounter Date: 08/20/19 Encounter Time: 18:21 Subjective: Patient seen and examined for Resp failure. SOB improving. Failed swallow eval - on Gonzalez water protocol. No new complaints. No overnight events. No family at bedside. - Objective Vital Signs & Weight: Vital Signs (12 hours) Temp Pulse BP Pulse Ox 08/20/19 16:00 99.2 F 08/20/19 11:24 99.4 F 08/20/19 09:03 61 123/46 L 08/20/19 08:03 96 08/20/19 07:57 97 08/20/19 07:18 99.8 F H Weight Weight 202 lb Most Recent Monitor Data Heart Rate from ECG 60 NIBP 128/52 NIBP BP-Mean 77 Respiration from ECG 18 SpO2 98 I&O: 08/19/19 08/20/19 08/21/19 06:59 06:59 06:59 Intake Total 503 1590 Output Total 550 Balance 503 1040 Result Diagrams: 08/20/19 03:08 08/20/19 03:08 Additional Labs: Accuchecks 08/20/19 08/20/19 08/20/19 16:34 11:14 06:23 POC Glucose 132 H 115 H 124 H 08/19/19 20:17 POC Glucose 113 H Radiology Reviewed by me: Yes (CXR - no new changes) EKG Reviewed by me: Yes (Tele SR) Hospitalist ROS - Review of Systems Cardiovascular: denies: chest pain, palpitations, orthopnea, paroxysmal noc. dyspnea, edema, light headedness, other Gastrointestinal: denies: nausea, vomiting, abdominal pain, diarrhea, constipation, melena, hematochezia, other - Medication Medications: Active Medications Generic Name Dose Route Start Last Admin Trade Name Freq PRN Reason Stop Dose Admin Aspirin 325 mg 08/19/19 09:00 08/20/19 09:05 Ecotrin PO 325 mg DAILY KALEB Administration Carvedilol 3.125 mg 08/18/19 21:00 08/20/19 09:06 Coreg PO 3.125 mg BID KALEB Administration Enoxaparin Sodium 30 mg 08/19/19 09:00 08/20/19 09:08 Lovenox SC 30 mg 0900 KALEB Administration Famotidine 20 mg 08/18/19 21:00 08/19/19 20:43 Pepcid SLOW IVP 20 mg 2100 KALEB Administration Cefepime HCl 1 gm/ Sodium 100 mls @ 200 mls/hr 08/18/19 18:00 08/20/19 17:26 Chloride IVPB 100 mls 1800 KALEB Administration Levofloxacin 250 mg/ Device 50 mls @ 100 mls/hr 08/19/19 13:00 08/20/19 13:41 IVPB 50 mls Q24HR KALEB Administration Dextrose/Sodium Chloride 1,000 mls @ 50 mls/hr 08/19/19 15:19 08/20/19 13:41 D5 1/2 Ns IV 1,000 mls .Q20H KALEB Administration Levetiracetam 500 mg 08/18/19 21:00 08/20/19 09:05 Keppra PO 500 mg BID KALEB Administration Nifedipine 30 mg 08/19/19 21:00 08/20/19 09:03 Procardia Xl PO 30 mg BID KALEB Administration Polyethylene Glycol 17 gm 08/19/19 09:00 08/20/19 09:09 Miralax PO Not Given DAILY KALEB Sertraline HCl 50 mg 08/19/19 09:00 08/20/19 09:05 Zoloft PO 50 mg DAILY KALEB Administration Simvastatin 10 mg 08/18/19 21:00 08/19/19 20:44 Zocor PO 10 mg QPM KALEB Administration - Exam General Appearance: NAD Heart: RRR, no gallops Respiratory: no wheezes, normal chest expansion, rhonchi Gastrointestinal: soft, non-tender, non-distended Extremities: no edema Neurological: no new deficit Hosp A/P - Plan DVT proph w/lovenox, DVT proph w/SCDs Acute hypoxic resp failure s/p NIPPV Sepsis due to Pneumonia ?Aspiration DHEERAJ on CKD 3 Toxic Metabolic Encephalopathy Chronic diastolic heart failure Type 2 NM HTN Dyslipidemia h/o CVA with left hemiplegia - on ASA Swallow dysfunction PLAN: Cont IV Cefepime/Levaquin Cont Coreg/Procardia XL (Hydralazine on hold) Cont IVF @ 50 ml/hr MBS in AM per family req Cont Gonzalez water protocol AM labs
[2019-08-20] MEDS: Simvastatin 5 MG TAB PO SCH (21:10)
[2019-08-20] MEDS: Famotidine/PF 20 mg/2ml Vial SLOW IVP SCH (21:10)
[2019-08-20] MEDS: Melatonin 3 MG TAB PO PRN (21:38)
--- NOTE | 2019-08-20 22:13 | CON ---
DATE OF CONSULTATION: 08/20/2019 HISTORY OF PRESENT ILLNESS: Ms. Dumont is a 64-year-old female who was admitted the evening of the with hypoxemia. She was placed on BiPAP. She has been weaned off BiPAP. Apparently, she is doing reasonably well. history of a cerebrovascular accident. I was consulted because intermediate care unit. She denies shortness of breath. PAST MEDICAL HISTORY: Remarkable for 1. CVA. 2. History of atrial fibrillation. 3. Diabetes. 4. Lipid disorder. 5. Hypertension. 6. Chronic kidney disease. 7. History of hysterectomy. 8. History of seizures. 9. History of diastolic dysfunction. 10. History of pacemaker. 11. History of PEG after a stroke, which has been removed. MEDICATIONS: She is on 1. Aspirin. 2. MiraLAX. 3. Senokot. 4. Zoloft. 5. Simvastatin. 6. Coreg. 7. Keppra. 8. Procardia. 9. Hydralazine. 10. Insulin. 11. Nebulizer treatments. FAMILY HISTORY: Negative for lung disease in early age. SOCIAL HISTORY: She is nonsmoker and nondrinker. She lives in a long term, [place]. She is not . Her daughter and mother still live. She is a do not resuscitate patient. PHYSICAL EXAMINATION: GENERAL: She is very pleasant. She is in no distress. She is dysarthric, answers questions slowly. VITAL SIGNS: Heart rate 60, blood pressure 130/39, respiratory rate is 19, oximetry is 97. HEENT: Pupils are equal. Sclerae are anicteric. NECK: Supple. LUNGS: Clear. HEART: Regular rhythm. S1 and S2 are normal, has grade 2/6 systolic murmur. ABDOMEN: Soft and nontender. EXTREMITIES: Without asymmetry. LABORATORY DATA: White count 11.8, hemoglobin 9.9, platelets 160,000. Sodium 143, potassium 4.9, chloride 116, bicarb 20, BUN 17, creatinine 2.9. Chest radiograph suggestive of pulmonary edema. IMPRESSION: 1. Diastolic heart failure. 2. Deconditioning secondary to a cerebrovascular accident, basically bedridden state. I agree with current management plans, we will continue with supportive care. She probably could be transferred off the intermediate care unit for medical management events where we will transfer back to her care environment. Job ID: [id number] [email or web address]
[2019-08-21 04:53] LABS: #Eosinphils 0.3 thou/uL (0.0-0.7); #Lymphocytes 1.7 thou/uL (1.20-3.40); #Monocytes 0.9 thou/uL (0.11-0.59); #Neutrophils 7.4 thou/uL (1.40-6.50); %Basophils 0.3 % (0.0-1.0); %Eosinophils 3.3 % (0.0-10.0); %Lymphocytes 16.7 % (21.0-51.0); %Monocytes 8.3 % (0.0-10.0); %Neutrophils 71.4 % (42.0-75.0); Hemoglobin 9.9 g/dL (12.0-16.0); Mean Corpuscular HGB CONC 31.8 g/dL (32.0-36.0); Mean Corpuscular Hemoglobin 28.4 pg (27.0-31.0); Mean Corpuscular Volume 89.3 fL (78.0-98.0); Platelet Count 170 thou/uL (130-400); RBC Distribution Width 14.1 % (11.5-14.5); Red Blood Cell (RBC) Count 3.49 mill/uL (4.20-5.40); White Blood Cell (WBC) Count 10.4 thou/uL (4.8-10.8)
[2019-08-21 05:15] LABS: ALT (SGPT) 7 U/L (8-55); AST (SGOT) 11 U/L (5-34); Albumin 3.3 g/dL (3.4-4.8); Alkaline Phosphatase 79 U/L (40-110); Anion Gap 13 mmol/L (10-20); BUN (Urea Nitrogen) 33 mg/dL (9.8-20.1); Bilirubin, Total 0.4 mg/dL (0.2-1.2); Calc. Creatinine Clearance 31 mL/min (70-130); Calcium 8.2 mg/dL (7.8-10.44); Carbon Dioxide 19 mmol/L (23-31); Chloride 114 mmol/L (98-107); Estimated GFR-MDRD 22; Globulin 3.6 g/dL (2.4-3.5); Glucose 160 mg/dL (80-115); Magnesium 2.3 mg/dL (1.6-2.6); Potassium 4.6 mmol/L (3.5-5.1); Protein, Total 6.9 g/dL (6.0-8.3); Sodium 141 mmol/L (136-145)
[2019-08-21] MEDS: HumaLOG 300 UNITS/3 ML VIAL SC PRN (05:59)
[2019-08-21] MEDS: Polyethylene Glycol 3350 17 GM Packet PO SCH (09:07)
[2019-08-21] MEDS: NIFEdipine XL 30 MG TAB PO SCH ×2 (09:07→20:06)
[2019-08-21] MEDS: Enoxaparin Sodium 30 MG/0.3 ML SYRINGE SC SCH (09:07)
[2019-08-21] MEDS: levETIRAcetam 500 MG TAB PO SCH ×2 (09:07→20:01)
[2019-08-21] MEDS: Aspirin 325 mg Enteric Coated Tablet PO SCH (09:07)
[2019-08-21] MEDS: Carvedilol 3.125 MG TAB PO SCH ×2 (09:07→20:06)
[2019-08-21] MEDS: Dextrose 5 %-0.45 % NaCl 1,000 ML IV SCH (11:59)
--- NOTE | 2019-08-21 12:39 | PDOC.HOSPP ---
- Subjective Encounter Date: 08/21/19 Encounter Time: 07:30 Subjective: Patient seen and examined. No new complaints. No overnight events - Objective Vital Signs & Weight: Vital Signs (12 hours) Temp Pulse Ox 08/21/19 11:35 97.6 F 08/21/19 07:42 97 08/21/19 07:23 99.4 F 08/21/19 03:32 98.6 F Weight Weight 201 lb Most Recent Monitor Data Heart Rate from ECG 74 NIBP 152/78 NIBP BP-Mean 102 Respiration from ECG 22 SpO2 92 I&O: 08/20/19 08/21/19 08/22/19 06:59 06:59 06:59 Intake Total 1590 1349 Output Total 550 900 Balance 1040 449 Result Diagrams: 08/21/19 04:23 08/21/19 04:23 Additional Labs: Accuchecks 08/21/19 08/21/19 08/20/19 10:46 05:41 19:59 POC Glucose 124 H 163 H 118 H 08/20/19 16:34 POC Glucose 132 H EKG Reviewed by me: Yes Hospitalist ROS - Review of Systems ROS unobtainable: due to mental status - Medication Medications: Active Medications Generic Name Dose Route Start Last Admin Trade Name Freq PRN Reason Stop Dose Admin Aspirin 325 mg 08/19/19 09:00 08/21/19 09:07 Ecotrin PO 325 mg DAILY KALEB Administration Carvedilol 3.125 mg 08/18/19 21:00 08/21/19 09:07 Coreg PO 3.125 mg BID KALEB Administration Enoxaparin Sodium 30 mg 08/19/19 09:00 08/21/19 09:07 Lovenox SC 30 mg 0900 KALEB Administration Famotidine 20 mg 08/18/19 21:00 08/20/19 21:10 Pepcid SLOW IVP 20 mg 2100 KALEB Administration Cefepime HCl 1 gm/ Sodium 100 mls @ 200 mls/hr 08/18/19 18:00 08/20/19 17:26 Chloride IVPB 100 mls 1800 KALEB Administration Levofloxacin 250 mg/ Device 50 mls @ 100 mls/hr 08/19/19 13:00 08/20/19 13:41 IVPB 50 mls Q24HR KALEB Administration Dextrose/Sodium Chloride 1,000 mls @ 50 mls/hr 08/19/19 15:19 08/21/19 11:59 D5 1/2 Ns IV 1,000 mls .Q20H KALEB Administration Insulin Human Lispro 0 units 08/19/19 15:06 08/21/19 05:59 Humalog SC 2 unit .MILD SLIDING SCALE PRN Administration Mild Correctional Scale Levetiracetam 500 mg 08/18/19 21:00 08/21/19 09:07 Keppra PO 500 mg BID KALEB Administration Melatonin 3 mg 08/20/19 21:20 08/20/19 21:38 Melatonin PO 3 mg HS PRN Administration Insomnia Nifedipine 30 mg 08/19/19 21:00 08/21/19 09:07 Procardia Xl PO 30 mg BID KALEB Administration Polyethylene Glycol 17 gm 08/19/19 09:00 08/21/19 09:07 Miralax PO 17 gm DAILY KALEB Administration Sertraline HCl 50 mg 08/19/19 09:00 08/21/19 09:07 Zoloft PO 50 mg DAILY KALEB Administration Simvastatin 10 mg 08/18/19 21:00 08/20/19 21:10 Zocor PO 10 mg QPM KALEB Administration - Exam General Appearance: NAD, awake alert Eye: PERRL, anicteric sclera ENT: normocephalic atraumatic, no oropharyngeal lesions Neck: supple, symmetric, no JVD, no thyromegaly Heart: RRR, no murmur, no gallops, no rubs Respiratory: CTAB, no wheezes, no rales, no ronchi Gastrointestinal: soft, non-tender, non-distended, normal bowel sounds Extremities: no cyanosis, no clubbing Skin: normal turgor, no lesions Neurological: no focal deficits Musculoskeletal: normal tone, normal strength Psychiatric: normal affect, normal behavior Hosp A/P - Plan old records reviewed/req, 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
--- NOTE | 2019-08-21 15:23 | PRG ---
DATE OF SERVICE: 08/21/2019 SUBJECTIVE: Ms. Dumont says she is feeling better. She denies shortness of breath. As always, she is a little dysarthric, but she is very pleasant and cooperative. OBJECTIVE: VITAL SIGNS: She is afebrile. Heart rate 67, respiratory rate 26, oximetry is 94%, and blood pressure is 150/67. LUNGS: Clear anteriorly. HEART: Regular rhythm. ABDOMEN: Soft. EXTREMITIES: Without asymmetry. LABORATORY DATA: White count 10.4, hemoglobin 9.9, and platelets 170. Sodium 141, potassium 4.6, chloride 114, bicarb 19, BUN 33, and creatinine 2.59. Intake and output positive 449. IMPRESSION: 1. History of cerebrovascular accident. 2. ? Aspiration pneumonia. Her first film was consistent with a superior segment infiltrate, but her second film looked more like pulmonary edema. 3. She had modified barium swallow today. 4. She is certainly in no distress. 5. We will continue to follow the other physicians caring for. Job ID: [id number]
--- NOTE | 2019-08-21 15:35 | CON ---
DATE OF CONSULTATION: 08/20/2019 HISTORY OF PRESENT ILLNESS: Ms. Dumont is a 64-year-old female who is essentially bed ridden after a CVA. She presented with hypoxemia and shortness of breath, is treated with BiPAP. Her initial chest x-ray was suggestive of a superior segment right lower lobe infiltrate. A followup film shows diffuse infiltrates. I was consulted because of her presence in the intermediate care unit. PAST MEDICAL HISTORY: 1. Remarkable for lupus. 2. Atrial fib. 3. Diabetes. 4. Lipid disorder. 5. Obesity. 6. Hypertension. 7. Chronic kidney disease. 8. History of hysterectomy. 9. History of seizures. 10. History of diastolic dysfunction. 11. History of pacemaker. 12. History of PEG placement in the past. MEDICATIONS: Medications were reviewed. FAMILY HISTORY: Negative for lung disease in early age. There is no history of alcohol or drug use. She is nonsmoker. She has a mother, who has power of real estate associate attorney/health care. Her daughter at 45 with heart disease. She says she is feeling much better. REVIEW OF SYSTEMS: Ten points otherwise negative. PHYSICAL EXAMINATION: VITAL SIGNS: She is afebrile. Heart rate 60, blood pressure 128/52, and respiratory rate is 18. HEAD AND NECK: Unremarkable. A small amount of facial asymmetry and smile asymmetry. NECK: Supple without lymphadenopathy. LUNGS: Clear. HEART: Regular rhythm. S1 and S2 are normal. There is a grade 1 to 2/6 systolic murmur. ABDOMEN: Soft and nontender. EXTREMITIES: Without clubbing, cyanosis, or edema. LABORATORY DATA: Sodium 143, potassium 4.9, chloride 116, bicarb 20, BUN 70, and creatinine 2.94. White count 11.8, hemoglobin 9.9, and platelets 160. IMPRESSION: 1. Respiratory distress, possibly secondary to aspiration pneumonia. 2. History of diastolic dysfunction with a second x-ray consistent with pulmonary edema. I agree with current care measures. I will be happy to follow the other physicians caring for. Job ID: [id number]
--- NOTE | 2019-08-21 15:47 | RAD ---
MODIFIED BARIUM SWALLOW IN THE PRESENCE OF SPEECH THERAPIST: 08/21/19 HISTORY: 64-year-old female with dysphagia, unspecified. Feeding difficulties. FINDINGS/IMPRESSION: There is mild laryngeal penetration without aspiration. No persistent pooling of contrast is seen in the vallecula or the piriform sinuses. Please see recommendations of the speech therapist for further management. POS: MARLENE
[2019-08-21] MEDS: Cefepime 1 GM in Sodium Chloride 0.9% 100 ML IVPB SCH (18:31)
[2019-08-21] MEDS: Famotidine/PF 20 mg/2ml Vial SLOW IVP SCH (20:00)
[2019-08-21] MEDS: Simvastatin 5 MG TAB PO SCH (20:00)
[2019-08-22] MEDS ORDERED: Artificial Tears 18 DROP/0.9 ML EA EYE PRN (07:18)
[2019-08-22] MEDS ORDERED: Non-Formulary Item 1 EACH (Ondansetron Hcl [Zofran] 8 MG) PO PRN (07:18)
[2019-08-22] MEDS ORDERED: Carvedilol 3.125 MG TAB PO SCH (07:20)
[2019-08-22] MEDS ORDERED: Ondansetron ODT 8 MG TAB PO PRN (07:26)
[2019-08-22] MEDS ORDERED: Furosemide 40 MG/4 ML VIAL SLOW IVP SCH (07:30)
[2019-08-22] MEDS: Polyethylene Glycol 3350 17 GM Packet PO SCH (08:51)
[2019-08-22] MEDS: Enoxaparin Sodium 30 MG/0.3 ML SYRINGE SC SCH (08:51)
[2019-08-22] MEDS: NIFEdipine XL 30 MG TAB PO SCH ×2 (08:51→20:15)
[2019-08-22] MEDS: levETIRAcetam 500 MG TAB PO SCH (08:53)
[2019-08-22] MEDS: Carvedilol 6.25 MG TAB PO SCH ×2 (08:53→20:15)
[2019-08-22] MEDS: Aspirin 325 mg Enteric Coated Tablet PO SCH (08:53)
[2019-08-22] MEDS: levETIRAcetam 500 mg/5 ml Oral Solution PO SCH ×2 (09:23→20:16)
[2019-08-22] MEDS: Dextrose 5 %-0.45 % NaCl 1,000 ML IV SCH (09:27)
--- NOTE | 2019-08-22 09:51 | PDOC.HOSPP ---
- Subjective Encounter Date: 08/22/19 Encounter Time: 07:00 Subjective: pt is more short of breath, she is on 3 liter nasal canula oxygen and maintaining in 90s, she is very weak, she has low grade fever per pt at [facility] she is not using oxygen - Objective Vital Signs & Weight: Vital Signs (12 hours) Temp Pulse Resp BP BP Pulse Ox 08/22/19 08:53 136/73 08/22/19 08:51 70 136/73 08/22/19 08:25 99.4 F 70 20 136/73 91 L 08/22/19 04:00 98.7 F 70 20 152/78 H 91 L 08/22/19 01:30 99.7 F H 08/21/19 23:39 100.2 F H 80 20 133/58 L 92 L Weight Weight 201 lb Most Recent Monitor Data Heart Rate from ECG 74 NIBP 152/78 NIBP BP-Mean 102 Respiration from ECG 22 SpO2 92 I&O: 08/21/19 08/22/19 08/23/19 06:59 06:59 06:59 Intake Total 1349 214 Output Total 900 400 Balance 449 -186 Result Diagrams: 08/21/19 04:23 08/21/19 04:23 Additional Labs: Accuchecks 08/22/19 08/21/19 08/21/19 06:10 20:06 16:28 POC Glucose 154 H 135 H 143 H 08/21/19 10:46 POC Glucose 124 H Radiology Reviewed by me: Yes Hospitalist ROS - Review of Systems Constitutional: reports: fever, weakness, malaise. denies: chills, sweats, other Respiratory: reports: shortness of breath. denies: cough, dry, hemoptysis, SOB with excertion, pleuritic pain, sputum, wheezing, other Cardiovascular: denies: chest pain, palpitations, orthopnea, paroxysmal noc. dyspnea, edema, light headedness, other Gastrointestinal: denies: nausea, vomiting, abdominal pain, diarrhea, constipation, melena, hematochezia, other Genitourinary: denies: dysuria, frequency, incontinence, hematuria, retention, other Musculoskeletal: denies: neck pain, shoulder pain, arm pain, back pain, hand pain, leg pain, foot pain, other - Medication Medications: Active Medications Generic Name Dose Route Start Last Admin Trade Name Freq PRN Reason Stop Dose Admin Acetaminophen 650 mg 08/18/19 16:57 08/21/19 23:44 Tylenol MS 650 mg Q4H PRN Administration Headache/Fever/Mild Pain (1-3) Aspirin 325 mg 08/19/19 09:00 08/22/19 08:53 Ecotrin PO 325 mg DAILY KALEB Administration Carvedilol 6.25 mg 08/22/19 09:00 08/22/19 08:53 Coreg PO 6.25 mg BID KALEB Administration Enoxaparin Sodium 30 mg 08/19/19 09:00 08/22/19 08:51 Lovenox SC 30 mg 0900 KALEB Administration Famotidine 20 mg 08/18/19 21:00 08/21/19 20:00 Pepcid SLOW IVP 20 mg 2100 KALEB Administration Furosemide 40 mg 08/22/19 07:30 08/22/19 08:51 Lasix SLOW IVP 08/22/19 10:00 40 mg NOW KALEB Administration Cefepime HCl 1 gm/ Sodium 100 mls @ 200 mls/hr 08/18/19 18:00 08/21/19 18:31 Chloride IVPB 100 mls 1800 KALEB Administration Levofloxacin 250 mg/ Device 50 mls @ 100 mls/hr 08/19/19 13:00 08/21/19 15:03 IVPB 50 mls Q24HR KALEB Administration Insulin Human Lispro 0 units 08/19/19 15:06 08/21/19 05:59 Humalog SC 2 unit .MILD SLIDING SCALE PRN Administration Mild Correctional Scale Levetiracetam 500 mg 08/22/19 09:00 08/22/19 09:23 Keppra Oral Solution PO 500 mg BID KALEB Administration Melatonin 3 mg 08/20/19 21:20 08/20/19 21:38 Melatonin PO 3 mg HS PRN Administration Insomnia Nifedipine 30 mg 08/19/19 21:00 08/22/19 08:51 Procardia Xl PO 30 mg BID KALEB Administration Polyethylene Glycol 17 gm 08/19/19 09:00 08/22/19 08:51 Miralax PO 17 gm DAILY KALEB Administration Sertraline HCl 50 mg 08/19/19 09:00 08/22/19 08:52 Zoloft PO 50 mg DAILY KALEB Administration Simvastatin 10 mg 08/18/19 21:00 08/21/19 20:00 Zocor PO 10 mg QPM KALEB Administration Sodium Chloride 10 ml 08/22/19 09:00 08/22/19 08:54 Flush - Normal Saline IVF Not Given Q12HR KALEB - Exam General Appearance: NAD, awake alert General - other findings: weak Eye: PERRL, anicteric sclera ENT: normocephalic atraumatic, no oropharyngeal lesions Neck: supple, symmetric, no JVD, no thyromegaly Heart: RRR, no murmur, no gallops, no rubs Respiratory - other findings: bilateral coarse sound Gastrointestinal: soft, non-tender, non-distended, normal bowel sounds Extremities: no cyanosis, no clubbing, no edema Skin: normal turgor, no lesions, no rashes Neurological: cranial nerve grossly intact, no focal deficits Musculoskeletal: normal tone, normal strength Psychiatric: normal affect, normal behavior Hosp A/P - Plan old records reviewed/req, 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, 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, 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, DVT proph w/lovenox, dc IVF Acute hypoxic resp failure s/p NIPPV Sepsis due to Pneumonia ?Aspiration DHEERAJ on CKD 3 Toxic Metabolic Encephalopathy Chronic diastolic heart failure Type 2 CO HTN Dyslipidemia h/o CVA with left hemiplegia - on ASA Swallow dysfunction Plan: 08/21/19 Transfer to medical floor continue current antibiotics today MBS medication reviewed as above supportive care expecting discharge soon so far all culture negative wean off oxygen as tolerated 08/22/19 DC IVF give lasix 40 mg now and repeat in after noon continue cefepime and levaquin, on discharge will change to augmentin, she had fever last night increase coreg 6.25 mg po bid change pepcid po repeat labs tomorrow continue modified diet as per speech therapy
[2019-08-22] MEDS: HumaLOG 300 UNITS/3 ML VIAL SC PRN ×2 (11:51→16:38)
[2019-08-22] MEDS: Furosemide 40 MG/4 ML VIAL SLOW IVP SCH (13:29)
[2019-08-22] MEDS: Acetaminophen 325 MG TAB PO PRN (16:36)
[2019-08-22] MEDS: Cefepime 1 GM in Sodium Chloride 0.9% 100 ML IVPB SCH (17:21)
[2019-08-22] MEDS: Simvastatin 5 MG TAB PO SCH (20:15)
[2019-08-23] MEDS: Acetaminophen 325 MG TAB PO PRN ×2 (00:12→19:51)
[2019-08-23] MEDS: Furosemide 40 MG/4 ML VIAL SLOW IVP SCH ×2 (05:15→14:25)
[2019-08-23 06:19] LABS: #Eosinphils 0.6 thou/uL (0.0-0.7); #Monocytes 0.7 thou/uL (0.11-0.59); #Neutrophils 7.8 thou/uL (1.40-6.50); %Basophils 0.4 % (0.0-1.0); %Eosinophils 5.3 % (0.0-10.0); %Lymphocytes 17.6 % (21.0-51.0); %Monocytes 6.5 % (0.0-10.0); %Neutrophils 70.2 % (42.0-75.0); Hemoglobin 9.2 g/dL (12.0-16.0); Mean Corpuscular HGB CONC 31.6 g/dL (32.0-36.0); Mean Corpuscular Hemoglobin 28.2 pg (27.0-31.0); Mean Corpuscular Volume 89.2 fL (78.0-98.0); Mean Platelet Volume 9.5 fL (7.4-10.4); Platelet Count 187 thou/uL (130-400); Red Blood Cell (RBC) Count 3.28 mill/uL (4.20-5.40)
[2019-08-23 06:40] LABS: Anion Gap 14 mmol/L (10-20); BUN (Urea Nitrogen) 27 mg/dL (9.8-20.1); Calc. Creatinine Clearance 34 mL/min (70-130); Calcium 7.9 mg/dL (7.8-10.44); Carbon Dioxide 20 mmol/L (23-31); Chloride 112 mmol/L (98-107); Estimated GFR-MDRD 24; Glucose 129 mg/dL (80-115); Potassium 4.5 mmol/L (3.5-5.1); Sodium 141 mmol/L (136-145)
[2019-08-23] MEDS: levETIRAcetam 500 mg/5 ml Oral Solution PO SCH ×2 (09:49→19:47)
[2019-08-23] MEDS: Enoxaparin Sodium 30 MG/0.3 ML SYRINGE SC SCH (09:49)
[2019-08-23] MEDS: NIFEdipine XL 30 MG TAB PO SCH ×2 (09:50→19:48)
[2019-08-23] MEDS: Famotidine 20 MG TAB PO SCH (09:50)
[2019-08-23] MEDS: Carvedilol 6.25 MG TAB PO SCH ×2 (09:50→19:47)
[2019-08-23] MEDS: Aspirin 325 mg Enteric Coated Tablet PO SCH (09:50)
[2019-08-23] MEDS: Polyethylene Glycol 3350 17 GM Packet PO SCH (09:57)
--- NOTE | 2019-08-23 10:31 | PDOC.HOSPP ---
- Subjective Encounter Date: 08/23/19 Encounter Time: 07:00 Subjective: Patient seen and examined. No new complaints. No overnight events - Objective Vital Signs & Weight: Vital Signs (12 hours) Temp Pulse Resp BP BP Pulse Ox 08/23/19 09:50 62 121/57 L 08/23/19 08:10 98.6 F 62 18 124/57 L 96 08/23/19 04:00 99.2 F 08/22/19 23:44 100.2 F H Weight Weight 206 lb 9.6 oz Most Recent Monitor Data Heart Rate from ECG 74 NIBP 152/78 NIBP BP-Mean 102 Respiration from ECG 22 SpO2 92 I&O: 08/22/19 08/23/19 08/24/19 06:59 06:59 06:59 Intake Total 214 1380 Output Total 400 1600 Balance -186 -220 Result Diagrams: 08/23/19 06:06 08/23/19 06:06 Additional Labs: Accuchecks 08/23/19 08/22/19 08/22/19 05:17 19:56 16:40 POC Glucose 134 H 195 H 195 H 08/22/19 11:02 POC Glucose 289 H Hospitalist ROS - Review of Systems ENT: denies: ear pain, ear discharge, nose pain, nose discharge, nose congestion , mouth pain, mouth swelling, throat pain, throat swelling, other Respiratory: denies: cough, dry, shortness of breath, hemoptysis, SOB with excertion, pleuritic pain, sputum, wheezing, other Cardiovascular: denies: chest pain, palpitations, orthopnea, paroxysmal noc. dyspnea, edema, light headedness, other Gastrointestinal: denies: nausea, vomiting, abdominal pain, diarrhea, constipation, melena, hematochezia, other Genitourinary: denies: dysuria, frequency, incontinence, hematuria, retention, other Musculoskeletal: denies: neck pain, shoulder pain, arm pain, back pain, hand pain, leg pain, foot pain, other - Medication Medications: Active Medications Generic Name Dose Route Start Last Admin Trade Name Freq PRN Reason Stop Dose Admin Acetaminophen 650 mg 08/18/19 16:57 08/23/19 00:12 Tylenol PO 650 mg Q4H PRN Administration Headache/Fever/Mild Pain (1-3) Acetaminophen 650 mg 08/18/19 16:57 08/21/19 23:44 Tylenol AR 650 mg Q4H PRN Administration Headache/Fever/Mild Pain (1-3) Aspirin 325 mg 08/19/19 09:00 08/23/19 09:50 Ecotrin PO 325 mg DAILY KALEB Administration Carvedilol 6.25 mg 08/22/19 09:00 08/23/19 09:50 Coreg PO 6.25 mg BID KALEB Administration Enoxaparin Sodium 30 mg 08/19/19 09:00 08/23/19 09:49 Lovenox SC 30 mg 0900 KALEB Administration Famotidine 20 mg 08/23/19 09:00 08/23/19 09:50 Pepcid PO 20 mg DAILY KALEB Administration Furosemide 40 mg 08/22/19 14:00 08/23/19 05:15 Lasix SLOW IVP 40 mg 0600,1400 KALEB Administration Cefepime HCl 1 gm/ Sodium 100 mls @ 200 mls/hr 08/18/19 18:00 08/22/19 17:21 Chloride IVPB 100 mls 1800 KALEB Administration Levofloxacin 250 mg/ Device 50 mls @ 100 mls/hr 08/19/19 13:00 08/22/19 13:28 IVPB 50 mls Q24HR KALEB Administration Insulin Human Lispro 0 units 08/19/19 15:06 08/22/19 16:38 Humalog SC 2 unit .MILD SLIDING SCALE PRN Administration Mild Correctional Scale Levetiracetam 500 mg 08/22/19 09:00 08/23/19 09:49 Keppra Oral Solution PO 500 mg BID KALEB Administration Melatonin 3 mg 08/20/19 21:20 08/20/19 21:38 Melatonin PO 3 mg HS PRN Administration Insomnia Nifedipine 30 mg 08/19/19 21:00 08/23/19 09:50 Procardia Xl PO 30 mg BID KALEB Administration Polyethylene Glycol 17 gm 08/19/19 09:00 08/23/19 09:57 Miralax PO 17 gm DAILY KALEB Administration Sertraline HCl 50 mg 08/19/19 09:00 08/23/19 09:50 Zoloft PO 50 mg DAILY KALEB Administration Simvastatin 10 mg 08/18/19 21:00 08/22/19 20:15 Zocor PO 10 mg QPM KALEB Administration Sodium Chloride 10 ml 08/22/19 09:00 08/23/19 09:51 Flush - Normal Saline IVF 10 ml Q12HR KALEB Administration Sodium Chloride 10 ml 08/22/19 07:24 08/22/19 17:21 Flush - Normal Saline IVF 10 ml PRN PRN Administration Saline Flush - Exam General Appearance: NAD, awake alert Eye: PERRL, anicteric sclera ENT: normocephalic atraumatic, no oropharyngeal lesions Neck: supple, symmetric, no JVD, no thyromegaly Heart: RRR, no murmur, no gallops, no rubs Respiratory: CTAB, no wheezes, no rales, no ronchi Gastrointestinal: soft, non-tender, non-distended, normal bowel sounds Extremities: no cyanosis, no clubbing, no edema Skin: normal turgor, no lesions, no rashes Musculoskeletal: normal tone, normal strength Psychiatric: normal affect Hosp A/P - Plan old records reviewed/req, 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, 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 Acute hypoxic resp failure s/p NIPPV Sepsis due to Pneumonia ?Aspiration DHEERAJ on CKD 3 Toxic Metabolic Encephalopathy Chronic diastolic heart failure Type 2 [place] HTN Dyslipidemia h/o CVA with left hemiplegia - on ASA Swallow dysfunction Plan: 08/21/19 Transfer to medical floor continue current antibiotics today MBS medication reviewed as above supportive care expecting discharge soon so far all culture negative wean off oxygen as tolerated 08/22/19 DC IVF give lasix 40 mg now and repeat in after noon continue cefepime and levaquin, on discharge will change to augmentin, she had fever last night increase coreg 6.25 mg po bid change pepcid po repeat labs tomorrow continue modified diet as per speech therapy 08/23/19 check room air saturation continue lasix pt is better than yesterday, had low grade fever last night continue antibiotic for now
[2019-08-23] MEDS: Cefepime 1 GM in Sodium Chloride 0.9% 100 ML IVPB SCH (17:31)
[2019-08-23] MEDS: HumaLOG 300 UNITS/3 ML VIAL SC PRN (17:31)
[2019-08-23] MEDS: Simvastatin 5 MG TAB PO SCH (19:47)
[2019-08-24] MEDS: Furosemide 40 MG/4 ML VIAL SLOW IVP SCH ×2 (05:28→15:55)
[2019-08-24] MEDS: Enoxaparin Sodium 30 MG/0.3 ML SYRINGE SC SCH (09:41)
[2019-08-24] MEDS: Polyethylene Glycol 3350 17 GM Packet PO SCH (09:41)
[2019-08-24] MEDS: levETIRAcetam 500 mg/5 ml Oral Solution PO SCH ×2 (09:41→20:21)
[2019-08-24] MEDS: Aspirin 325 mg Enteric Coated Tablet PO SCH (09:42)
[2019-08-24] MEDS: Carvedilol 6.25 MG TAB PO SCH ×2 (09:42→20:22)
--- NOTE | 2019-08-24 09:43 | PDOC.HOSPP ---
- Subjective Encounter Date: 08/24/19 Encounter Time: 07:00 Subjective: Patient seen and examined. No new complaints. No overnight events - Objective Vital Signs & Weight: Vital Signs (12 hours) Temp Pulse Resp BP Pulse Ox 08/24/19 08:41 98.2 F 60 16 130/60 94 L 08/23/19 23:41 98.6 F Weight Weight 206 lb 8 oz Most Recent Monitor Data Heart Rate from ECG 74 NIBP 152/78 NIBP BP-Mean 102 Respiration from ECG 22 SpO2 92 I&O: 08/23/19 08/24/19 08/25/19 06:59 06:59 06:59 Intake Total 1380 1400 200 Output Total 1600 1450 850 Balance -220 -50 -650 Result Diagrams: 08/23/19 06:06 08/23/19 06:06 Additional Labs: Accuchecks 08/24/19 08/23/19 08/23/19 05:31 19:58 16:37 POC Glucose 105 203 H 265 H 08/23/19 11:03 POC Glucose 175 H Hospitalist ROS - Review of Systems ENT: denies: ear pain, ear discharge, nose pain, nose discharge, nose congestion , mouth pain, mouth swelling, throat pain, throat swelling, other Respiratory: denies: cough, dry, shortness of breath, hemoptysis, SOB with excertion, pleuritic pain, sputum, wheezing, other Cardiovascular: denies: chest pain, palpitations, orthopnea, paroxysmal noc. dyspnea, edema, light headedness, other Gastrointestinal: denies: nausea, vomiting, abdominal pain, diarrhea, constipation, melena, hematochezia, other Genitourinary: denies: dysuria, frequency, incontinence, hematuria, retention, other Musculoskeletal: denies: neck pain, shoulder pain, arm pain, back pain, hand pain, leg pain, foot pain, other - Medication Medications: Active Medications Generic Name Dose Route Start Last Admin Trade Name Freq PRN Reason Stop Dose Admin Acetaminophen 650 mg 08/18/19 16:57 08/23/19 19:51 Tylenol PO 650 mg Q4H PRN Administration Headache/Fever/Mild Pain (1-3) Acetaminophen 650 mg 08/18/19 16:57 08/21/19 23:44 Tylenol [place] 650 mg Q4H PRN Administration Headache/Fever/Mild Pain (1-3) Aspirin 325 mg 08/19/19 09:00 08/23/19 09:50 Ecotrin PO 325 mg DAILY KALEB Administration Carvedilol 6.25 mg 08/22/19 09:00 08/23/19 19:47 Coreg PO 6.25 mg BID KALEB Administration Enoxaparin Sodium 30 mg 08/19/19 09:00 08/23/19 09:49 Lovenox SC 30 mg 0900 KALEB Administration Famotidine 20 mg 08/23/19 09:00 08/23/19 09:50 Pepcid PO 20 mg DAILY KALEB Administration Furosemide 40 mg 08/22/19 14:00 08/24/19 05:28 Lasix SLOW IVP 40 mg 0600,1400 KALEB Administration Cefepime HCl 1 gm/ Sodium 100 mls @ 200 mls/hr 08/18/19 18:00 08/23/19 17:31 Chloride IVPB 100 mls 1800 KALEB Administration Levofloxacin 250 mg/ Device 50 mls @ 100 mls/hr 08/19/19 13:00 08/23/19 12:55 IVPB 50 mls Q24HR KALEB Administration Insulin Human Lispro 0 units 08/19/19 15:06 08/23/19 17:31 Humalog SC 4 unit .MILD SLIDING SCALE PRN Administration Mild Correctional Scale Levetiracetam 500 mg 08/22/19 09:00 08/23/19 19:47 Keppra Oral Solution PO 500 mg BID KALEB Administration Melatonin 3 mg 08/20/19 21:20 08/20/19 21:38 Melatonin PO 3 mg HS PRN Administration Insomnia Nifedipine 30 mg 08/19/19 21:00 08/23/19 19:48 Procardia Xl PO Not Given BID KALEB Polyethylene Glycol 17 gm 08/19/19 09:00 08/23/19 09:57 Miralax PO 17 gm DAILY KALEB Administration Sertraline HCl 50 mg 08/19/19 09:00 08/23/19 09:50 Zoloft PO 50 mg DAILY KALEB Administration Simvastatin 10 mg 08/18/19 21:00 08/23/19 19:47 Zocor PO 10 mg QPM KALEB Administration Sodium Chloride 10 ml 08/22/19 09:00 08/23/19 19:52 Flush - Normal Saline IVF 10 ml Q12HR KALEB Administration Sodium Chloride 10 ml 08/22/19 07:24 08/22/19 17:21 Flush - Normal Saline IVF 10 ml PRN PRN Administration Saline Flush - Exam General Appearance: NAD, awake alert Eye: PERRL, anicteric sclera ENT: normocephalic atraumatic, no oropharyngeal lesions Neck: supple, symmetric, no JVD, no thyromegaly Heart: RRR, no murmur, no gallops, no rubs Respiratory: CTAB, no wheezes, no rales Gastrointestinal: soft, non-tender, non-distended, normal bowel sounds Extremities: no cyanosis, no clubbing, no edema Skin: normal turgor, no lesions Neurological: cranial nerve grossly intact, no focal deficits Musculoskeletal: normal tone, normal strength Psychiatric: normal affect, normal behavior Hosp A/P - Plan old records reviewed/req Acute hypoxic resp failure s/p NIPPV Sepsis due to Pneumonia ?Aspiration DHEERAJ on CKD 3 Toxic Metabolic Encephalopathy Chronic diastolic heart failure Type 2 [place] HTN Dyslipidemia h/o CVA with left hemiplegia - on ASA Swallow dysfunction Plan: 08/21/19 Transfer to medical floor continue current antibiotics today MBS medication reviewed as above supportive care expecting discharge soon so far all culture negative wean off oxygen as tolerated 08/22/19 DC IVF give lasix 40 mg now and repeat in after noon continue cefepime and levaquin, on discharge will change to augmentin, she had fever last night increase coreg 6.25 mg po bid change pepcid po repeat labs tomorrow continue modified diet as per speech therapy 08/23/19 check room air saturation continue lasix pt is better than yesterday, had low grade fever last night continue antibiotic for now 08/24/19 will get chest xray and review wean off oxygen as tolerated augmentin on discharge
[2019-08-24] MEDS: Famotidine 20 MG TAB PO SCH (09:46)
[2019-08-24] MEDS: NIFEdipine XL 30 MG TAB PO SCH ×2 (09:46→20:22)
--- NOTE | 2019-08-24 09:54 | RAD ---
PORTABLE CHEST 1 VIEW: Date: 08/24/19 Time: 0840 hours HISTORY: Hypoxia. FINDINGS/IMPRESSION: Comparison made with exam of 08/20/19. Left-sided pacemaker device remains in place. The heart size is enlarged. There is pulmonary vascular congestion. Obscuration of the left hemidiaphragm likely due to atelectasis or infiltrate is again s een. No pneumothoraces are identified. POS: [facility]
[2019-08-24] MEDS: Cefepime 1 GM in Sodium Chloride 0.9% 100 ML IVPB SCH (18:02)
[2019-08-24] MEDS: Simvastatin 5 MG TAB PO SCH (20:21)
[2019-08-24] MEDS: Acetaminophen 325 MG TAB PO PRN (21:39)
[2019-08-25] MEDS: Melatonin 3 MG TAB PO PRN ×3 (01:53→23:26)
[2019-08-25] MEDS: Furosemide 40 MG/4 ML VIAL SLOW IVP SCH ×2 (05:23→15:00)
[2019-08-25] MEDS: NIFEdipine XL 30 MG TAB PO SCH ×2 (09:02→21:15)
[2019-08-25] MEDS: Aspirin 325 mg Enteric Coated Tablet PO SCH (09:02)
[2019-08-25] MEDS: Famotidine 20 MG TAB PO SCH (09:04)
[2019-08-25] MEDS: Carvedilol 6.25 MG TAB PO SCH ×2 (09:04→21:15)
[2019-08-25] MEDS: Enoxaparin Sodium 30 MG/0.3 ML SYRINGE SC SCH (09:05)
[2019-08-25] MEDS: Polyethylene Glycol 3350 17 GM Packet PO SCH (09:05)
[2019-08-25] MEDS: levETIRAcetam 500 mg/5 ml Oral Solution PO SCH ×2 (09:14→21:15)
--- NOTE | 2019-08-25 12:53 | DIS ---
DATE OF ADMISSION: 08/18/2019 DATE OF DISCHARGE: 08/25/2019 PRIMARY CARE PHYSICIAN: Joe Chavez MD DISCHARGE DISPOSITION: custodial home. PRIMARY DISCHARGE DIAGNOSES: 1. Acute respiratory failure with hypoxia. 2. Oropharyngeal dysphagia, aspiration pneumonia suspected acute on chronic diastolic congestive heart failure, acute on chronic kidney failure, toxic metabolic encephalopathy. SECONDARY DISCHARGE DIAGNOSES: Chronic diastolic heart failure, diabetes type 2, hypertension, dyslipidemia, history of cerebrovascular accident with residual weakness, chronic kidney disease stage 3. PRIMARY PROCEDURE/OPERATION: None. RADIOLOGICAL INVESTIGATION: Chest x-ray, modified barium swallow. SIGNIFICANT LABORATORY DATA: WBC 11.0, hemoglobin 9.2, platelet 187. Sodium 141, potassium 4.5, BUN 27, creatinine 2.41, calcium 7.9. Urinalysis unremarkable. Blood culture, negative. Urine culture, negative. Influenza, negative. Respiratory virus panel, negative. DISCHARGE MEDICATION: 1. DuoNeb q.4 hourly p.r.n. 2. Zofran 8 mg q.4 hourly p.r.n. 3. Tylenol 650 mg q.6 hourly p.r.n. 4. Artificial Tears b.i.d. p.r.n. 5. Dulcolax 10 mg per rectum daily p.r.n. 6. Coreg 3.125 mg p.o. b.i.d. 7. Chlorhexidine 15 mL p.o. b.i.d. mouthwash p.r.n. 8. Ferrous sulfate 325 mg p.o. b.i.d. 9. Insulin 10 units subcu at bedtime. 10. Procardia XL 60 mg p.o. b.i.d. 11. MiraLAX 17 g p.o. daily. 12. Senokot one tablet p.o. at bedtime p.r.n. 13. Zoloft 50 mg p.o. daily. 14. Zocor mg p.o. at bedtime. 15. Vitamin B complex one tablet daily. 16. Augmentin 500 mg twice daily for seven days. 17. Hydralazine 50 mg t.i.d. 18. Keppra 500 mg p.o. b.i.d. CONTRAINDICATION: None. CODE STATUS: DNR. INPATIENT INDUCTION COORDINATION POWER ENGINEER: Dr. Pereira was following while in hospital. Palliative Care Team was consulted while in hospital. TEST RESULT PENDING ON DISCHARGE: None. ALLERGIES: NO KNOWN DRUG ALLERGIES. DISCHARGE PLAN: Posthospital, the patient will be discharged back to [facility]. Over there, the patient will use oxygen as needed basis. HOSPITAL COURSE: A 64-year-old female with above-mentioned medical problem, who was admitted by Dr. Dillon. Please see her H and P for further details. The patient was transferred from [facility] for increasing shortness of breath. The patient was also altered on admission in the emergency room. She was hypoxic. She required BiPAP. She was suspected for aspiration pneumonia and she was treated with broad-spectrum antibiotic therapy. While in hospital, we also noted that the patient was also volume overloaded and she was having acute on chronic diastolic heart failure and that is why we treated her with Lasix. Her blood culture, urine culture remained negative. Her flu screen negative and respiratory culture also negative. On discharge, we changed to Augmentin upon discharge. While in hospital, she received cefepime and Levaquin. Pulmonary group was following while in hospital. We continued all her previous medication. Her blood pressure medications will be titrated based on her hemodynamics. We will hold blood pressure medication at [facility] if her systolic blood pressure is below 120 and dose will be reduced accordingly. I have seen and examined the patient at bedside today. PHYSICAL EXAMINATION: VITAL SIGNS: Currently, temperature 97.3, pulse 61, blood pressure 119/65, respiratory rate 16, saturation 94% on 2 L. Weight 203 pounds. GENERAL: The patient is currently alert and oriented, no acute distress. HEENT: Head; normocephalic, atraumatic. Eyes; pupils round, reactive to light. Extraocular muscles are intact. ENT; oropharynx within normal limits. Moist mucous membranes. No oral lesion. No pharyngeal erythema. No exudate. NECK: Supple. No JVD. No thyromegaly. No carotid bruit. No jugular venous distention. LUNGS: Clear to auscultation without any rhonchi or rales. CARDIAC: S1 and S2, regular without any murmur. No gallop. No rub. ABDOMEN: Soft and benign without any tenderness. EXTREMITIES: No edema. NEUROLOGIC: Residual weakness noted. REVIEW OF SYSTEMS: All review of systems reviewed with her and negative. Paperwork for discharge done and discharge medication reconciliation done. Job ID: [id number]
--- NOTE | 2019-08-25 17:09 | PDOC.HOSPP ---
- Subjective Encounter Date: 08/25/19 Encounter Time: 17:08 Subjective: Patient seen and examined. No new complaints. No overnight events - Objective Vital Signs & Weight: Vital Signs (12 hours) Temp Pulse Resp BP BP Pulse Ox 08/25/19 09:04 119/67 08/25/19 09:02 61 119/65 08/25/19 08:45 97.3 F L 61 16 119/65 94 L 08/25/19 08:00 92 L Weight Weight 203 lb 4 oz Most Recent Monitor Data Heart Rate from ECG 74 NIBP 152/78 NIBP BP-Mean 102 Respiration from ECG 22 SpO2 92 I&O: 08/24/19 08/25/19 08/26/19 06:59 06:59 06:59 Intake Total 1400 3455 Output Total 1450 2250 Balance -50 1205 Result Diagrams: 08/23/19 06:06 08/23/19 06:06 Additional Labs: Accuchecks 08/25/19 08/25/19 08/24/19 12:01 05:56 20:18 POC Glucose 133 H 101 141 H Hospitalist ROS - Review of Systems ENT: denies: ear pain, ear discharge, nose pain, nose discharge, nose congestion , mouth pain, mouth swelling, throat pain, throat swelling, other Respiratory: denies: cough, dry, shortness of breath, hemoptysis, SOB with excertion, pleuritic pain, sputum, wheezing, other Cardiovascular: denies: chest pain, palpitations, orthopnea, paroxysmal noc. dyspnea, edema, light headedness, other Gastrointestinal: denies: nausea, vomiting, abdominal pain, diarrhea, constipation, melena, hematochezia, other Genitourinary: denies: dysuria, frequency, incontinence, hematuria, retention, other Musculoskeletal: denies: neck pain, shoulder pain, arm pain, back pain, hand pain, leg pain, foot pain, other - Medication Medications: Active Medications Generic Name Dose Route Start Last Admin Trade Name Freq PRN Reason Stop Dose Admin Acetaminophen 650 mg 08/18/19 16:57 08/24/19 21:39 Tylenol PO 650 mg Q4H PRN Administration Headache/Fever/Mild Pain (1-3) Acetaminophen 650 mg 08/18/19 16:57 08/21/19 23:44 Tylenol [place] 650 mg Q4H PRN Administration Headache/Fever/Mild Pain (1-3) Aspirin 325 mg 08/19/19 09:00 08/25/19 09:02 Ecotrin PO 325 mg DAILY KALEB Administration Carvedilol 6.25 mg 08/22/19 09:00 08/25/19 09:04 Coreg PO 6.25 mg BID KALEB Administration Enoxaparin Sodium 30 mg 08/19/19 09:00 08/25/19 09:05 Lovenox SC 30 mg 0900 KALEB Administration Famotidine 20 mg 08/23/19 09:00 08/25/19 09:04 Pepcid PO 20 mg DAILY KALEB Administration Furosemide 40 mg 08/22/19 14:00 08/25/19 05:23 Lasix SLOW IVP 40 mg 0600,1400 KALEB Administration Cefepime HCl 1 gm/ Sodium 100 mls @ 200 mls/hr 08/18/19 18:00 08/24/19 18:02 Chloride IVPB 100 mls 1800 KALEB Administration Levofloxacin 250 mg/ Device 50 mls @ 100 mls/hr 08/19/19 13:00 08/25/19 13:18 IVPB 50 mls Q24HR KALEB Administration Insulin Human Lispro 0 units 08/19/19 15:06 08/23/19 17:31 Humalog SC 4 unit .MILD SLIDING SCALE PRN Administration Mild Correctional Scale Levetiracetam 500 mg 08/22/19 09:00 08/25/19 09:14 Keppra Oral Solution PO 500 mg BID KALEB Administration Melatonin 3 mg 08/20/19 21:20 08/25/19 01:53 Melatonin PO 3 mg HS PRN Administration Insomnia Nifedipine 30 mg 08/19/19 21:00 08/25/19 09:02 Procardia Xl PO 30 mg BID KALEB Administration Polyethylene Glycol 17 gm 08/19/19 09:00 08/25/19 09:05 Miralax PO 17 gm DAILY KALEB Administration Sertraline HCl 50 mg 08/19/19 09:00 08/25/19 09:05 Zoloft PO 50 mg DAILY KALEB Administration Simvastatin 10 mg 08/18/19 21:00 08/24/19 20:21 Zocor PO 10 mg QPM KALEB Administration Sodium Chloride 10 ml 08/22/19 09:00 08/25/19 09:02 Flush - Normal Saline IVF 10 ml Q12HR KALEB Administration Sodium Chloride 10 ml 10/24/19 07:24 08/22/19 17:21 Flush - Normal Saline IVF 10 ml PRN PRN Administration Saline Flush - Exam General Appearance: NAD, awake alert Eye: PERRL, anicteric sclera ENT: normocephalic atraumatic, no oropharyngeal lesions Neck: supple, symmetric, no JVD, no thyromegaly Heart: RRR, no murmur, no gallops, no rubs Respiratory: CTAB, no wheezes, no rales, no ronchi Gastrointestinal: soft, non-tender, non-distended, normal bowel sounds Extremities: no cyanosis, no clubbing Skin: normal turgor, no lesions Neurological: no new deficit Musculoskeletal: normal tone, normal strength Psychiatric: normal affect, normal behavior Hosp A/P - Plan old records reviewed/req, PT/OT, 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 social worker Acute hypoxic resp failure s/p NIPPV Sepsis due to Pneumonia ?Aspiration DHEERAJ on CKD 3 Toxic Metabolic Encephalopathy Chronic diastolic heart failure Type 2 [place] HTN Dyslipidemia h/o CVA with left hemiplegia - on ASA Swallow dysfunction Plan: 08/21/19 Transfer to medical floor continue current antibiotics today MBS medication reviewed as above supportive care expecting discharge soon so far all culture negative wean off oxygen as tolerated 08/22/19 DC IVF give lasix 40 mg now and repeat in after noon continue cefepime and levaquin, on discharge will change to augmentin, she had fever last night increase coreg 6.25 mg po bid change pepcid po repeat labs tomorrow continue modified diet as per speech therapy 08/23/19 check room air saturation continue lasix pt is better than yesterday, had low grade fever last night continue antibiotic for now 08/24/19 will get chest xray and review wean off oxygen as tolerated augmentin on discharge 08/25/19 planned for discharge but [facility]nu will not take her until tomorrow
[2019-08-25] MEDS: Cefepime 1 GM in Sodium Chloride 0.9% 100 ML IVPB SCH (17:53)
[2019-08-25] MEDS: Simvastatin 5 MG TAB PO SCH (21:14)
[2019-08-26] MEDS: Furosemide 40 MG/4 ML VIAL SLOW IVP SCH (06:25)
[2019-08-26] MEDS: Polyethylene Glycol 3350 17 GM Packet PO SCH (08:41)
[2019-08-26] MEDS: NIFEdipine XL 30 MG TAB PO SCH (08:41)
[2019-08-26] MEDS: levETIRAcetam 500 mg/5 ml Oral Solution PO SCH (08:42)
[2019-08-26] MEDS: Carvedilol 6.25 MG TAB PO SCH (08:42)
[2019-08-26] MEDS: Famotidine 20 MG TAB PO SCH (08:42)
[2019-08-26] MEDS: Aspirin 325 mg Enteric Coated Tablet PO SCH (08:42)
[2019-08-26] MEDS: Enoxaparin Sodium 30 MG/0.3 ML SYRINGE SC SCH (08:43)
[2019-08-26 09:27] LABS: #Basophils 0.1 thou/uL (0.0-0.2); #Eosinphils 0.7 thou/uL (0.0-0.7); #Lymphocytes 1.8 thou/uL (1.20-3.40); #Monocytes 0.7 thou/uL (0.11-0.59); #Neutrophils 5.3 thou/uL (1.40-6.50); %Basophils 0.7 % (0.0-1.0); %Eosinophils 7.9 % (0.0-10.0); %Lymphocytes 21.4 % (21.0-51.0); %Monocytes 7.8 % (0.0-10.0); %Neutrophils 62.1 % (42.0-75.0); Hemoglobin 9.5 g/dL (12.0-16.0); Mean Corpuscular HGB CONC 30.9 g/dL (32.0-36.0); Mean Corpuscular Volume 87.7 fL (78.0-98.0); Mean Platelet Volume 8.8 fL (7.4-10.4); Platelet Count 234 thou/uL (130-400); RBC Distribution Width 13.7 % (11.5-14.5); Red Blood Cell (RBC) Count 3.53 mill/uL (4.20-5.40); White Blood Cell (WBC) Count 8.5 thou/uL (4.8-10.8)
[2019-08-26 09:50] LABS: Anion Gap 10 mmol/L (10-20); BUN (Urea Nitrogen) 33 mg/dL (9.8-20.1); Calc. Creatinine Clearance 32 mL/min (70-130); Calcium 8.3 mg/dL (7.8-10.44); Carbon Dioxide 29 mmol/L (23-31); Chloride 103 mmol/L (98-107); Estimated GFR-MDRD 22; Glucose 110 mg/dL (80-115); Magnesium 1.9 mg/dL (1.6-2.6); Potassium 4.2 mmol/L (3.5-5.1); Sodium 138 mmol/L (136-145)
--- NOTE | 2019-08-26 10:32 | PDOC.HOSPP ---
- Subjective Encounter Date: 08/26/19 Encounter Time: 07:00 Subjective: Patient seen and examined. No new complaints. No overnight events - Objective Vital Signs & Weight: Vital Signs (12 hours) Temp Pulse Resp BP Pulse Ox 08/26/19 08:00 98.2 F 67 18 136/62 95 Weight Weight 212 lb Most Recent Monitor Data Heart Rate from ECG 74 NIBP 152/78 NIBP BP-Mean 102 Respiration from ECG 22 SpO2 92 I&O: 08/25/19 08/26/19 08/27/19 06:59 06:59 06:59 Intake Total 3455 1380 Output Total 2250 1750 Balance 1205 -370 Result Diagrams: 08/26/19 09:19 08/26/19 09:18 Additional Labs: Accuchecks 08/26/19 08/25/19 08/25/19 05:18 20:30 16:57 POC Glucose 138 H 159 H 171 H 08/25/19 12:01 POC Glucose 133 H Hospitalist ROS - Review of Systems ENT: denies: ear pain, ear discharge, nose pain, nose discharge, nose congestion , mouth pain, mouth swelling, throat pain, throat swelling, other Respiratory: denies: cough, dry, shortness of breath, hemoptysis, SOB with excertion, pleuritic pain, sputum, wheezing, other Cardiovascular: denies: chest pain, palpitations, orthopnea, paroxysmal noc. dyspnea, edema, light headedness, other Gastrointestinal: denies: nausea, vomiting, abdominal pain, diarrhea, constipation, melena, hematochezia, other Genitourinary: denies: dysuria, frequency, incontinence, hematuria, retention, other Musculoskeletal: denies: neck pain, shoulder pain, arm pain, back pain, hand pain, leg pain, foot pain, other Skin: denies: rash, lesions, candis, bruising, other - Medication Medications: Active Medications Generic Name Dose Route Start Last Admin Trade Name Freq PRN Reason Stop Dose Admin Acetaminophen 650 mg 08/18/19 16:57 08/24/19 21:39 Tylenol PO 650 mg Q4H PRN Administration Headache/Fever/Mild Pain (1-3) Acetaminophen 650 mg 08/18/19 16:57 08/21/19 23:44 Tylenol [place] 650 mg Q4H PRN Administration Headache/Fever/Mild Pain (1-3) Aspirin 325 mg 08/19/19 09:00 08/26/19 08:42 Ecotrin PO 325 mg DAILY KALEB Administration Carvedilol 6.25 mg 08/22/19 09:00 08/26/19 08:42 Coreg PO 6.25 mg BID KALEB Administration Enoxaparin Sodium 30 mg 08/19/19 09:00 08/26/19 08:43 Lovenox SC 30 mg 0900 KALEB Administration Famotidine 20 mg 08/23/19 09:00 08/26/19 08:42 Pepcid PO 20 mg DAILY KALEB Administration Furosemide 40 mg 08/22/19 14:00 08/26/19 06:25 Lasix SLOW IVP 40 mg 0600,1400 KALEB Administration Cefepime HCl 1 gm/ Sodium 100 mls @ 200 mls/hr 08/18/19 18:00 08/25/19 17:53 Chloride IVPB 100 mls 1800 KALEB Administration Levofloxacin 250 mg/ Device 50 mls @ 100 mls/hr 08/19/19 13:00 08/25/19 13:18 IVPB 50 mls Q24HR KALEB Administration Insulin Human Lispro 0 units 08/19/19 15:06 08/23/19 17:31 Humalog SC 4 unit .MILD SLIDING SCALE PRN Administration Mild Correctional Scale Levetiracetam 500 mg 08/22/19 09:00 08/26/19 08:42 Keppra Oral Solution PO 500 mg BID KALEB Administration Melatonin 3 mg 08/20/19 21:20 08/25/19 23:26 Melatonin PO 3 mg HS PRN Administration Insomnia Nifedipine 30 mg 08/19/19 21:00 08/26/19 08:41 Procardia Xl PO 30 mg BID KALEB Administration Polyethylene Glycol 17 gm 08/19/19 09:00 08/26/19 08:41 Miralax PO 17 gm DAILY KALEB Administration Sertraline HCl 50 mg 08/19/19 09:00 08/26/19 08:41 Zoloft PO 50 mg DAILY KALEB Administration Simvastatin 10 mg 08/18/19 21:00 08/25/19 21:14 Zocor PO 10 mg QPM KALEB Administration Sodium Chloride 10 ml 08/22/19 09:00 08/25/19 21:15 Flush - Normal Saline IVF 10 ml Q12HR KALEB Administration Sodium Chloride 10 ml 08/22/19 07:24 08/22/19 17:21 Flush - Normal Saline IVF 10 ml PRN PRN Administration Saline Flush - Exam General Appearance: NAD, awake alert Eye: PERRL, anicteric sclera ENT: normocephalic atraumatic, no oropharyngeal lesions Neck: supple, symmetric, no JVD, no thyromegaly Heart: RRR, no murmur, no gallops, no rubs, normal peripheral pulses Respiratory: CTAB, no wheezes, no rales, no ronchi Gastrointestinal: soft, non-tender, non-distended, normal bowel sounds Extremities: no cyanosis, no clubbing Skin: normal turgor, no lesions Neurological: cranial nerve grossly intact, normal sensation to touch, no focal deficits Musculoskeletal: normal tone, normal strength Psychiatric: normal affect, normal behavior Hosp A/P - Plan old records reviewed/req, 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, 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, 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 Acute hypoxic resp failure s/p NIPPV- resolving Sepsis due to Pneumonia ?Aspiration DHEERAJ on CKD 3 Toxic Metabolic Encephalopathy Chronic diastolic heart failure Type 2 DC HTN Dyslipidemia h/o CVA with left hemiplegia - on ASA Swallow dysfunction Plan: 08/21/19 Transfer to medical floor continue current antibiotics today MBS medication reviewed as above supportive care expecting discharge soon so far all culture negative wean off oxygen as tolerated 08/22/19 DC IVF give lasix 40 mg now and repeat in after noon continue cefepime and levaquin, on discharge will change to augmentin, she had fever last night increase coreg 6.25 mg po bid change pepcid po repeat labs tomorrow continue modified diet as per speech therapy 08/23/19 check room air saturation continue lasix pt is better than yesterday, had low grade fever last night continue antibiotic for now 08/24/19 will get chest xray and review wean off oxygen as tolerated augmentin on discharge 08/25/19 planned for discharge but [facility] will not take her until tomorrow 08/26/19 stable, renal function is fluctuates, now euvolemic, H & H stable, still needs little oxygen, may be she has now chronic respi failure and will require oxygen , will benefit with spirometry, has previous CVA and possible her poor inspiratory effort is contributing, stable for discharge to [facility] if [facility] will take her.
[2019-08-26 12:26] VITALS: BP 147/66; TEMP 98.4
--- NOTE | 2019-08-27 13:40 | DIS ---
DATE OF ADMISSION: 08/18/2019 DATE OF DISCHARGE: 08/26/2019 ADDENDUM: Please see my discharge summary dictated on August 25, 2019 for more detail. The patient was planned for discharge on that day, but shelter was not able to take here and that is why she stayed in the hospital overnight and next day, the patient was able to go to shelter. There is no change in my discharge summary. The patient saw and examined on the day of discharge as well. Please see my progress note from that day for more detail. Job ID: [id number]
== END 2019-08-26 14:50 | DRG 871 ==
LOC: ERS 12:02 → ERHOLD 14:52 → IMCU/EMU 21:24 → ONC 08-21 12:07
PROVIDERS: ADMIT Internal Medicine; ATTEND Internal Medicine
DX: A41.9 Sepsis, unspecified organism (principal); J69.0 Pneumonitis due to inhalation of food and vomit; J96.01 Acute respiratory failure with hypoxia; G92 Toxic encephalopathy; I50.33 Acute on chronic diastolic (congestive) heart failure; N17.9 Acute kidney failure, unspecified; I69.354 Hemiplegia and hemiparesis following cerebral infarction affecting left non-dominant side; I13.0 Hypertensive heart and chronic kidney disease with heart failure and stage 1 through stage 4 chronic kidney disease, or unspecified chronic kidney disease; E78.5 Hyperlipidemia, unspecified; N18.3 Chronic kidney disease, stage 3 (moderate); E11.22 Type 2 diabetes mellitus with diabetic chronic kidney disease; Z51.5 Encounter for palliative care; Z90.710 Acquired absence of both cervix and uterus; G40.909 Epilepsy, unspecified, not intractable, without status epilepticus; Z95.0 Presence of cardiac pacemaker
CPT/HCPCS: 36415; 36416; 51701; 71045; 74230; 80048; 80053; 81003; 81015; 82553; 83605; 83690; 83735; 83880; 84484; 85025; 87040; 87070; 87086; 87205; 87804; 90471; 90662; 90670; 93005; 94644; 94660; 94760; 96365; 96366; 96367; 96375; A4353; G0008; G0009; J0692; J1650; J1815; J1940; J1953; J1956; J2405; J2543; J3370; J3490; J7050; J7611; S0028

== ENCOUNTER 2019-10-15 18:15 | Inpatient (IN) | payer MEDICARE, MEDICAID ==
[2019-10-15] MEDS ORDERED: Artificial Tears 18 DROP/0.9 ML EA EYE PRN (20:00)
[2019-10-15] MEDS ORDERED: HumaLOG 300 UNITS/3 ML VIAL SC PRN (20:02)
[2019-10-15] MEDS ORDERED: Acetaminophen 325 MG TAB PO PRN (20:02)
[2019-10-15] MEDS ORDERED: Dextrose 50% Abboject 50 ML SYRINGE SLOW IVP PRN (20:02)
[2019-10-15] MEDS ORDERED: Dextrose 5% in Water 1,000 ML IV PRN (20:02)
[2019-10-15] MEDS ORDERED: Ondansetron PF 4 MG/2 ML Vial IVP PRN (20:02)
[2019-10-15] MEDS ORDERED: HYDROcodone/Acetaminophen 5/325 mg Tablet PO PRN (20:02)
--- NOTE | 2019-10-15 20:15 | RAD ---
PORTABLE CHEST: 10/15/19 HISTORY: Shortness of breath. COMPARISON: 10/15/19 at 2 p.m. Cardiomegaly with mild vascular congestion again noted. Pacemaker leads unchanged. No focal infiltrat e. Small effusions may be present. IMPRESSION: Mild vascular congestion. Not significantly changed from film earlier in the day. POS: OFF
--- NOTE | 2019-10-15 20:43 | HP ---
PRESENTING COMPLAINT: Increasing shortness of breath. HISTORY OF PRESENT ILLNESS: A 64-year-old female, senior care resident, with past medical history of hypertension, CVA, right hemiparesis, lives at the senior care since the last 8 years, history of CHF, diastolic with EF of 65% to 70% on last echo, who presented because of increasing shortness of breath since the last 2 days. The patient states that she has limited salt intake, but able to feed herself at the senior care. Sequentially, she has been having increasing weight gain as she is nonmobile. She denies any cough. She denies any chest pain. She denies any headache or dizziness. She denies any decreased urine output. PAST MEDICAL HISTORY: Significant for history of CVA with right hemiparesis, history of paroxysmal atrial fibrillation, history of pacemaker placement, history of diastolic CHF, history of cardiac cath in the past, history of diabetes, vitamin D deficiency, hyperlipidemia. Chronic kidney disease, baseline creatinine ranging from 2.3 to 2.7. PAST SURGICAL HISTORY: Includes pacemaker placement, initial PEG tube and later removal, hysterectomy. HOME MEDICATIONS: See medication list. ALLERGIES: NO KNOWN DRUG ALLERGIES. FAMILY HISTORY: No history of ESRD in the family, but recent history of dialysis using by nephew. History of hypertension. REVIEW OF SYSTEMS: Poor. The patient denies all other systems x10, reviewed. CODE STATUS: Do not resuscitate. She has a power of admitted attorneys. PHYSICAL EXAMINATION: VITAL SIGNS: Current vitals blood pressure of 154/90, pulse of 76, respiratory rate of 18, O2 saturation is 100% on 2 L nasal cannula. GENERAL: Morbidly obese, middle-aged female, appears older on nasal cannula O2, not in any acute respiratory distress. HEENT: Head is atraumatic and normocephalic. Pupils are equal, reactive to light. No periorbital edema. NECK: No JVD. No carotid bruit. RESPIRATORY: Coarse crepitation with decreased breath sounds at the bases. No wheeze. CARDIOVASCULAR: S1 and S2. Pacemaker in-situ but regular. GI: Obese abdomen. Soft. Bowel sounds positive. No suprapubic fullness. Diaper in-situ. EXTREMITIES: No pedal edema. No calf tenderness. NEUROLOGIC: The patient is awake. Slurred speech noted. Right hemiparesis noted. DIAGNOSTIC DATA: EKG shows atrial paced rhythm at 60 beats per minute. No ST-segment changes. Chest x-ray shows moderate pulmonary congestive changes noted with alveolar edema. LABORATORY DATA: Rest of lab from senior care, potassium 5.2, sodium 144, chloride 111, bicarb 25, BUN 26, creatinine 2.1. EGFR of 28. AST and alkaline phosphatase normal. Troponin of 0.11. BNP of 519. IMPRESSION: 1. Acute diastolic exacerbation. 2. Hypertension. 3. Diabetes mellitus. 4. Hypertension. 5. Obesity. 6. History of cerebrovascular accident. PLAN: We will admit the patient to inpatient status. We will manage the patient for the following; 1. Acute diastolic exacerbation. We will start the patient on IV Lasix 40 mg t.i.d. Follow daily weight. Monitor intake and output. Continue low salt intake. Also start fluid restriction to less than 1500 mL per day. Last echo from 3 months ago shows normal LVEF with 60% to 65%, grade 2/3 diastolic dysfunction, mild concentric LVH. 2. Hypertension. Continue home regimen. Follow with diuresis. 3. Diabetes mellitus. We will continue home regimen with insulin sliding scale with Accu-Cheks. 4. CKD. Creatinine is slightly lower than baseline. Follow with diuresis yesterday and today. We will consult Renal. The patient might need renal followup as outpatient. 5. DVT prophylaxis. We will do subcutaneous Lovenox after medication review. 6. Advanced directives. The patient is DNR. Total time spent in review of record, discussion with patient, and evaluation greater than 60 minutes. Job ID: [id number]
[2019-10-15 20:55] LABS: Troponin I 0.125 ng/mL (< 0.028)
[2019-10-15 20:56] LABS: Anion Gap 8 mmol/L (10-20); BUN (Urea Nitrogen) 25 mg/dL (9.8-20.1); Calc. Creatinine Clearance 0 mL/min (70-130); Calcium 8.7 mg/dL (7.8-10.44); Carbon Dioxide 28 mmol/L (23-31); Chloride 109 mmol/L (98-107); Estimated GFR-MDRD 28; Glucose 99 mg/dL (80-115); Potassium 4.7 mmol/L (3.5-5.1); Sodium 140 mmol/L (136-145)
[2019-10-15] MEDS ORDERED: Non-Formulary Item 1 EACH (Insulin Glargine,Hum.Rec.Anlog [Lantus Solostar] 10 UNIT) SC SCH (21:00)
[2019-10-15 21:22] LABS: #Eosinphils 0.4 thou/uL (0.0-0.7); #Lymphocytes 1.9 thou/uL (1.20-3.40); #Monocytes 0.5 thou/uL (0.11-0.59); #Neutrophils 4.9 thou/uL (1.40-6.50); %Basophils 0.3 % (0.0-1.0); %Eosinophils 4.9 % (0.0-10.0); %Lymphocytes 24.4 % (21.0-51.0); %Monocytes 6.1 % (0.0-10.0); %Neutrophils 64.3 % (42.0-75.0); Hemoglobin 10.5 g/dL (12.0-16.0); Mean Corpuscular HGB CONC 30.9 g/dL (32.0-36.0); Mean Corpuscular Hemoglobin 27.7 pg (27.0-31.0); Mean Corpuscular Volume 89.9 fL (78.0-98.0); Mean Platelet Volume 9.8 fL (7.4-10.4); Platelet Count 161 thou/uL (130-400); RBC Distribution Width 14.3 % (11.5-14.5); Red Blood Cell (RBC) Count 3.78 mill/uL (4.20-5.40); White Blood Cell (WBC) Count 7.7 thou/uL (4.8-10.8)
[2019-10-15] MEDS: Insulin Glargine 10 UNITS in Pre-Filled Syringe 1 EACH SC SCH (22:05)
[2019-10-15] MEDS: hydrALAZINE 25 MG TAB PO SCH (22:10)
[2019-10-15] MEDS: levETIRAcetam 500 MG TAB PO SCH (22:11)
[2019-10-15] MEDS: Carvedilol 3.125 MG TAB PO SCH (22:11)
[2019-10-15] MEDS: Furosemide 40 MG/4 ML VIAL SLOW IVP SCH (22:17)
[2019-10-15] MEDS: NIFEdipine XL 60 MG TAB PO SCH (22:18)
[2019-10-15 22:20] VITALS: BMI 35.9
[2019-10-15 23:39] LABS: Troponin I 0.132 ng/mL (< 0.028)
[2019-10-16 04:34] LABS: Troponin I 0.134 ng/mL (< 0.028)
[2019-10-16] MEDS ORDERED: Prevnar 13-Val Conj/PF 0.5 ML SYRINGE IM ONE (09:00)
[2019-10-16] MEDS: Ferrous Sulfate 325 MG TAB PO SCH ×2 (09:11→17:54)
[2019-10-16] MEDS: Furosemide 40 MG/4 ML VIAL SLOW IVP SCH ×2 (09:11→15:04)
[2019-10-16] MEDS: Aspirin 325 mg Enteric Coated Tablet PO SCH (09:11)
[2019-10-16] MEDS: hydrALAZINE 25 MG TAB PO SCH ×3 (09:11→20:40)
[2019-10-16] MEDS: Enoxaparin Sodium 30 MG/0.3 ML SYRINGE SC SCH (09:11)
[2019-10-16] MEDS: Carvedilol 3.125 MG TAB PO SCH (09:12)
[2019-10-16] MEDS: NIFEdipine XL 60 MG TAB PO SCH (09:12)
[2019-10-16] MEDS: levETIRAcetam 500 MG TAB PO SCH ×2 (09:12→20:40)
[2019-10-16] MEDS: Polyethylene Glycol 3350 17 GM Packet PO SCH (09:12)
--- NOTE | 2019-10-16 10:20 | PDOC.HOSPP ---
- Subjective Subjective: Pt is asleep in bed. - Objective Vital Signs & Weight: Vital Signs (12 hours) Temp Pulse Resp BP Pulse Ox 10/16/19 09:11 60 10/16/19 07:33 98.0 F 60 16 133/66 100 10/16/19 06:57 95 10/16/19 06:54 60 16 94 L 10/16/19 04:00 98.0 F 64 18 134/90 96 10/16/19 02:11 74 20 97 10/15/19 23:45 98.3 F 60 18 144/68 H 95 10/15/19 22:18 75 Weight Weight 195 lb 3.2 oz I&O: 10/15/19 10/16/19 10/17/19 06:59 06:59 06:59 Intake Total 120 Output Total 500 Balance -380 Result Diagrams: 10/15/19 21:15 10/15/19 20:26 Additional Labs: Accuchecks 10/16/19 10/15/19 05:43 20:49 POC Glucose 205 H 107 Hospitalist ROS - Medication Medications: Active Medications Generic Name Dose Route Start Last Admin Trade Name Freq PRN Reason Stop Dose Admin Hydrocodone Bitart/Acetaminophen 1 tab 10/15/19 20:02 10/15/19 22:11 [place] 5/325 PO 1 tab Q4H PRN Administration Moderate Pain (4-6) Albuterol/Ipratropium 3 ml 10/15/19 22:30 10/16/19 06:54 Duoneb NEB 3 ml [id number] KALEB Administration Aspirin 325 mg 10/16/19 09:00 10/16/19 09:11 Ecotrin PO 325 mg DAILY KALEB Administration Enoxaparin Sodium 30 mg 10/16/19 09:00 10/16/19 09:11 Lovenox SC 30 mg 0900 KALEB Administration Ferrous Sulfate 325 mg 10/16/19 08:00 10/16/19 09:11 Feosol PO 325 mg BID-WM KALEB Administration Hydralazine HCl 50 mg 10/15/19 21:00 10/16/19 09:11 Apresoline PO 50 mg TID KALEB Administration Insulin Glargine 10 units/ 0.1 mls @ 0 mls/hr 10/15/19 21:00 10/15/19 22:05 Miscellaneous Medication SC Not Given HS KALEB Levetiracetam 500 mg 10/15/19 21:00 10/16/19 09:12 Keppra PO 500 mg BID KALEB Administration Nifedipine 60 mg 10/15/19 21:00 10/16/19 09:12 Procardia Xl PO 60 mg BID KALEB Administration Polyethylene Glycol 17 gm 10/16/19 09:00 10/16/19 09:12 Miralax PO 17 gm DAILY KALEB Administration Sertraline HCl 50 mg 10/16/19 09:00 10/16/19 09:12 Zoloft PO 50 mg DAILY KALEB Administration - Exam General - other findings: asleep and not arousable to verbal stimulation Heart: RRR, no murmur, no gallops, no rubs Respiratory: rales (upper airway rales) Respiratory - other findings: diminished air exchange; intermittent apneic breathing pattern Hosp A/P (1) Acute diastolic heart failure Code(s): I50.31 - ACUTE DIASTOLIC (CONGESTIVE) HEART FAILURE Status: Acute (2) CKD stage 4 secondary to hypertension Code(s): I12.9 - HYPERTENSIVE CHRONIC KIDNEY DISEASE W STG 1-4/UNSP CHR KDNY; N18.4 - CHRONIC KIDNEY DISEASE, STAGE 4 (SEVERE) Status: Acute (3) HTN (hypertension) Code(s): I10 - ESSENTIAL (PRIMARY) HYPERTENSION Status: Acute (4) Diabetes mellitus Code(s): E11.9 - TYPE 2 DIABETES MELLITUS WITHOUT COMPLICATIONS Status: Acute (5) Seizure Status: Acute - Plan Acute on Chronic Diastolic Heart Failure grade II/III: Echo taken in 06/2019 revealing EF 65-70%. Pacemaker in place. Will interrogate. Discontinue Procardia. Increase Coreg to 6.25 BID. HTN: Taking Hydralazine 50 TID. Discontinue Procardia. Increasing Coreg to 6.25 BID. DM: Accu-Checks. Continue home dose of Lantus 10 u. Sliding scale with Humalog. CKD: Stable. Will avoid nephrotoxic medication. Seizure Disorder: Will continue home Keppra. DVT Prophylaxis: Lovenox 30 SC daily. PUD Prophylaxis: Add Pecid.
[2019-10-16] MEDS ORDERED: Carvedilol 6.25 MG TAB PO SCH (10:30)
[2019-10-16] MEDS ORDERED: Metolazone 2.5 MG TAB PO SCH (14:00)
[2019-10-16 14:57] LABS: Anion Gap 13 mmol/L (10-20); BUN (Urea Nitrogen) 30 mg/dL (9.8-20.1); Calc. Creatinine Clearance 34 mL/min (70-130); Calcium 8.7 mg/dL (7.8-10.44); Carbon Dioxide 26 mmol/L (23-31); Chloride 109 mmol/L (98-107); Estimated GFR-MDRD 25; Glucose 126 mg/dL (80-115); Potassium 5.9 mmol/L (3.5-5.1); Sodium 142 mmol/L (136-145)
--- NOTE | 2019-10-16 15:02 | CON ---
DATE OF CONSULTATION: HISTORY OF PRESENT ILLNESS: The patient is an unfortunate 64-year-old woman with a history of large cerebrovascular accident, who presents with increasing dyspnea. In 2006, she underwent cardiac catheterization and found to have normal left ventricular systolic function with normal coronary arteries. In 2013, she had placement of electronic ventricular pacemaker. The patient has suffered a large cerebrovascular accident and has subsequently been on medical therapy.She recently underwent a stress test that revealed normal left ventricular systolic function with apical ischemia. The patient presents with increasing dyspnea. She denies having any chest discomfort. PAST MEDICAL HISTORY: 1. Large CVA with hemiparesis. 2. Hypertension. 3. Diabetes mellitus. 4. Chronic renal failure. PAST SURGICAL HISTORY: Hysterectomy and PEG placement. SOCIAL HISTORY: Nonsmoker. FAMILY HISTORY: Positive family history of coronary artery disease. REVIEW OF SYSTEMS: Increasing dyspnea. PHYSICAL EXAMINATION: GENERAL AND VITAL SIGNS: This is an obese woman, in no acute distress with a blood pressure 133/66. NECK: Showed no jugular venous distention. LUNGS: Bilateral wheezes. HEART: Regular rate and rhythm. Normal S1 and S2. ABDOMEN: Distended. EXTREMITIES: Showed trace edema. LABORATORY DATA: Laboratory results revealed her to have a white blood cell count 7.7, hemoglobin 10.5, hematocrit 34.0, platelets 161. Her sodium was 140, potassium 4.7, chloride 109, bicarbonate 20, BUN 25, creatinine 2.1. Troponin 0.134. IMAGING STUDIES: Chest x-ray revealed mild pulmonary edema. EKG: Atrial paced rhythm, otherwise unremarkable. IMPRESSION: 1. Congestive heart failure secondary to diastolic dysfunction. 2. History of CVA. 3. Chronic renal failure. 4. History of pacemaker placement. This patient presents with mild congestive heart failure. The patient being diuresed with IV Lasix. We will discontinue the patient's Coreg. The patient is being treated with Nifedipine for her blood pressure. We will follow this patient with you through her hospitalization. Job ID: [id number] [facility]
[2019-10-16] MEDS: Carvedilol 6.25 MG TAB PO SCH (17:51)
--- NOTE | 2019-10-16 17:57 | CON ---
DATE OF CONSULTATION: REASON FOR CONSULTATION: Elevated creatinine. HISTORY OF PRESENT ILLNESS: This is a very pleasant 64-year-old lady being admitted for congestive heart failure with diastolic dysfunction. The patient presented to the hospital with increasing shortness of breath. The patient denies any nausea, vomiting, or chest pain. Her creatinine has increased to 2.1 yesterday from 2.6 to 2.9 at baseline. Her creatinine had peaked to 4.2 in 2013. She has multiple episodes of acute renal failure. PAST MEDICAL HISTORY: Significant for pacemaker, PEG, hysterectomy, history of CVA, right hemiparesis, atrial fibrillation, congestive heart failure, and vitamin D deficiency. HOME MEDICATIONS: List reviewed. HOSPITAL MEDICATION: List reviewed. REVIEW OF SYSTEMS: A 15-point review of system was performed negative except for positives noted above. GENERAL: HEAD: NECK: No swelling or lumps. NOSE: No epistaxis or discharge. EYES: No diplopia or pain. 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 NEUROPSYCHIATIC SYSTEMS: No suicidal ideation. No ideation. SKIN: Denies any rash or ulcer. CONSTITUTIONAL: No fever or chills. PHYSICAL EXAMINATION: CONSTITUTIONAL: The patient is awake. VITAL SIGNS: Afebrile, pulse 62, breathing 16, blood pressure 133/62. GENERAL APPEARANCE AND MENTAL STATUS: Fair. HEAD/NECK: Normocephalic. Atraumatic. EYES: EOMI. No deformity. EARS: Clear. No ulcers. NOSE: Intact. No lesions. MOUTH: Clear. No discharge. THROAT: Clear. No exudate. LUNGS: Clear. No crackles. CARDIAC: S1, S2. No rub. ABDOMEN: Benign. Bowel sounds positive. GENITALIA/RECTUM: Whiting absent. BACK/EXTREMITIES: Edema 0+. NEUROLOGICAL: Alert and motor intact. SKIN: LYMPHATICS: LABORATORY DATA: Labs reviewed. ASSESSMENT AND PLAN: Acute kidney injury, chronic kidney disease most likely due to chronic diastolic dysfunction. We would start metolazone. We will consider Lasix. Hypertension, stable. Anemia, stable. Medication based on GFR appropriate. Respiratory failure. The patient needs close observation. Job ID: [id number]
[2019-10-16] MEDS: Famotidine 20 MG TAB PO SCH (20:40)
[2019-10-16] MEDS: Insulin Glargine 10 UNITS in Pre-Filled Syringe 1 EACH SC SCH (20:43)
[2019-10-17 04:38] LABS: Anion Gap 12 mmol/L (10-20); BUN (Urea Nitrogen) 29 mg/dL (9.8-20.1); Calc. Creatinine Clearance 33 mL/min (70-130); Calcium 8.3 mg/dL (7.8-10.44); Carbon Dioxide 29 mmol/L (23-31); Chloride 105 mmol/L (98-107); Estimated GFR-MDRD 25; Glucose 224 mg/dL (80-115); Potassium 4.4 mmol/L (3.5-5.1); Sodium 142 mmol/L (136-145)
[2019-10-17] MEDS: Furosemide 40 MG/4 ML VIAL SLOW IVP SCH (05:31)
[2019-10-17] MEDS: Aspirin 325 mg Enteric Coated Tablet PO SCH (10:01)
[2019-10-17] MEDS: Carvedilol 6.25 MG TAB PO SCH (10:01)
[2019-10-17] MEDS: Enoxaparin Sodium 30 MG/0.3 ML SYRINGE SC SCH (10:01)
[2019-10-17] MEDS: Ferrous Sulfate 325 MG TAB PO SCH ×2 (10:01→16:37)
[2019-10-17] MEDS: levETIRAcetam 500 MG TAB PO SCH (10:02)
[2019-10-17] MEDS: Famotidine 20 MG TAB PO SCH (10:02)
[2019-10-17] MEDS: hydrALAZINE 25 MG TAB PO SCH ×2 (10:02→15:55)
[2019-10-17] MEDS: Polyethylene Glycol 3350 17 GM Packet PO SCH (10:03)
--- NOTE | 2019-10-17 12:06 | PRG ---
DATE OF SERVICE: 10/17/2019 SUBJECTIVE: A 64-year-old female is being seen for acute kidney injury. The patient denies any nausea, vomiting, or chest pain. OBJECTIVE: GENERAL: The patient is awake and alert. VITAL SIGNS: Pulse 61, breathing 16, blood pressure 137/65. GENERAL APPEARANCE AND MENTAL STATUS: Fair. HEAD/NECK: Normocephalic. Atraumatic. EYES: EOMI. No deformity. EARS: Clear. No ulcers. NOSE: Intact. No lesions. MOUTH: Clear. No discharge. THROAT: Clear. No exudate. LUNGS: Clear. No crackles. CARDIAC: S1, S2. No rub. ABDOMEN: Benign. Bowel sounds positive. GENITALIA/RECTUM: Whiting absent. BACK/EXTREMITIES: Edema 0+. NEUROLOGICAL: Alert and motor intact. SKIN: LYMPHATICS: LABORATORY DATA: Hemoglobin 10.5. Creatinine 2.4. ASSESSMENT: 1. Chronic kidney disease, stage 4, stable. 2. Hypertension, stable. 3. Anemia, stable. 4. Medication based on GFR appropriate. Job ID: [id number]
--- NOTE | 2019-10-17 12:11 | ULT ---
Bilateral renal ultrasound CLINICAL INDICATION: Acute renal insufficiency COMPARISON: 10/11/2013 FINDINGS: Right kidney: There is an echogenic appearance of the right kidney. No renal mass, hydronephrosis, or renal calculus is visualized.The right kidney measures 9.8 cm x 4.3 cm. Left kidney: There is borderline diminished renal cortical thickness. There is no mass, hydronephrosi s, or renal calculus seen involving the left kidney.The left kidney measures 8.3 cm x 4.1 cm. The left kidney measures smaller in size compared to the prior exam in 2013. Urinary bladder: Decompressed with Whiting catheter in place. IMPRESSION: 1. Echogenic appearance of the right kidney which is an interval change from study in 2013. This may be related to chronic medical renal disease. 2. Decreased size of the left kidney when compared to prior study. 3. No evidence of hydronephrosis. Borderline renal cortical thickness is present on the left.
[2019-10-17 16:04] VITALS: BP 159/72
[2019-10-17 16:34] VITALS: TEMP 98.4
[2019-10-17] MEDS ORDERED: Carvedilol 6.25 MG TAB PO SCH (17:00)
[2019-10-18] MEDS ORDERED: Furosemide 40 MG TAB PO SCH (07:30)
[2019-10-18] MEDS ORDERED: Famotidine 20 MG TAB PO SCH (09:00)
--- NOTE | 2019-10-18 14:20 | DIS ---
DATE OF ADMISSION: 10/15/2019 DATE OF DISCHARGE: 10/17/2019 DISCHARGE DIAGNOSES: 1. Acute on chronic diastolic congestive heart failure. 2. Acute on chronic kidney disease. 3. Hypertension. 4. Diabetes mellitus. 5. History of seizure disorder. 6. History of cerebrovascular accident. 7. Hypertension. 8. Diabetes mellitus. HISTORY OF PRESENT ILLNESS: This patient is a 64-year-old female with a history of prior CVA, who is living in a residential facility, who presented to the emergency department with increasing shortness of breath over several days. She had mild vascular congestion on her chest x-ray and her BNP was slightly elevated at 368. She had a GFR of 28, which was similar to her baseline renal function. HOSPITAL COURSE: The patient was admitted to the hospital with what appeared to be decompensated heart failure. She was seen in consultation by Dr. Montero, who felt she had decompensated diastolic heart failure, agreed with the diuresis. The patient subsequently had significant improvement. Symptomatically, her labs remained stable. Her blood pressure remains adequately controlled and she was felt to be stable for discharge to home. PHYSICAL EXAMINATION: VITAL SIGNS: On the day of discharge, temperature was 98.4, pulse 60, respirations 19, O2 saturation 94% on 1 to 3 L nasal cannula as needed, BP was 148/63. GENERAL: She was awake and alert. She was feeding herself breakfast. HEART: Regular. LUNGS: Clear. ABDOMEN: Benign. DISPOSITION: She is discharged home. ACTIVITY: As tolerated. DIET: She will be on a heart healthy, low-sodium, diabetic diet. DISCHARGE MEDICATIONS: She will be on: 1. Carvedilol 12.5 mg b.i.d. 2. Lasix 40 mg daily. 3. Polyethylene glycol 17 g daily. 4. Dulcolax p.r.n. 5. Hydralazine 50 mg t.i.d. 6. Keppra 500 mg b.i.d. 7. DuoNeb p.r.n. 8. Ferrous sulfate 325 daily. 9. B complex one p.o. daily. 10. Zocor 10 mg daily. 11. Senokot one p.o. at bedtime. 12. Lantus 10 units at bedtime. 13. Chlorhexidine oral rinse. 14. Artificial Tears. 15. Zofran 8 mg q.4 hours p.r.n. 16. Tylenol p.r.n. 17. Aspirin 325 daily. 18. Sertraline 25 mg daily. FOLLOWUP: She is to have follow up with [facility], Dr. Lozada, in 2 to 3 weeks, Dr. Shepherd in 10 days, and Dr. Feliciano. She can return to the hospital should she have any need to do so in the future. Time spent in discharge activities was 39 min. Job ID: [id number] [facility]
== END 2019-10-17 17:15 | DRG 291 ==
LOC: ERS 18:15 → 2NO 20:44
PROVIDERS: ADMIT Internal Medicine; ATTEND Internal Medicine
DX: I13.0 Hypertensive heart and chronic kidney disease with heart failure and stage 1 through stage 4 chronic kidney disease, or unspecified chronic kidney disease (principal); J96.90 Respiratory failure, unspecified, unspecified whether with hypoxia or hypercapnia; I50.33 Acute on chronic diastolic (congestive) heart failure; I69.351 Hemiplegia and hemiparesis following cerebral infarction affecting right dominant side; N18.4 Chronic kidney disease, stage 4 (severe); N17.9 Acute kidney failure, unspecified; E78.5 Hyperlipidemia, unspecified; E11.22 Type 2 diabetes mellitus with diabetic chronic kidney disease; G40.909 Epilepsy, unspecified, not intractable, without status epilepticus; E66.9 Obesity, unspecified; D64.9 Anemia, unspecified; Z95.0 Presence of cardiac pacemaker; Z90.710 Acquired absence of both cervix and uterus; Z93.1 Gastrostomy status; Z68.35 Body mass index [BMI] 35.0-35.9, adult
CPT/HCPCS: 36415; 36416; 71045; 76770; 80048; 83735; 83880; 84484; 90471; 90670; 93005; 94640; G0009; J1650; J1815; J1940; J7620

== ENCOUNTER 2020-07-29 16:07 | Inpatient (IN) | payer MEDICARE, MEDICAID, OTHER ==
[2020-07-29 16:58] LABS: Hemoglobin 11.3 g/dL (12.0-16.0); Mean Corpuscular Volume 92.9 fL (78.0-98.0); RBC Distribution Width 14.1 % (11.5-14.5); Red Blood Cell (RBC) Count 4.18 mill/uL (4.20-5.40); White Blood Cell (WBC) Count 14.4 thou/uL (4.8-10.8)
[2020-07-29 17:02] LABS: INR-International Normal Ratio 1.1; Prothrombin Time 14.1 sec (12.0-14.7)
[2020-07-29 17:08] LABS: PTT 21.4 sec (22.9-36.1)
[2020-07-29 17:15] LABS: Mean Platelet Volume 7.9 fL (7.4-10.4); Platelet Count 40 thou/uL (130-400)
[2020-07-29 17:16] LABS: Band 19 % (5-11); Hypochromia SLIGHT = 6-15 cells (100X) (0-5/hpf); Lymphocytes 5 % (21-51); MDiff Complete? YES; Monocytes 1 % (0-10); Neutrophil 72 % (42-75); Platelet Morphology Comment Appears Decreased; Polychromasia SLIGHT = 2-3 cells (100X) (0-2/hpf); Reactive Lymphocytes 3 % (0-10); Target Cells SLIGHT = 2-5 cells (100X) (0-1/hpf)
[2020-07-29 17:24] LABS: AST (SGOT) 18 U/L (5-34); Anion Gap 18 mmol/L (10-20); Bilirubin, Total 0.3 mg/dL (0.2-1.2); Calcium 8.3 mg/dL (7.8-10.44); Carbon Dioxide 21 mmol/L (23-31); Chloride 106 mmol/L (98-107); Potassium 5.7 mmol/L (3.5-5.1); Protein, Total 7.9 g/dL (6.0-8.3); Sodium 139 mmol/L (136-145)
--- NOTE | 2020-07-29 17:27 | RAD ---
Left femur 2 views: HISTORY: Trauma, left lower extremity pain FINDINGS: There is a spiral fracture involving the distal shaft of the left femur without significant displacem ent
--- NOTE | 2020-07-29 17:28 | RAD ---
XR Pelvis AP STANDARD HISTORY: Trauma, pelvic pain, left lower extremity pain FINDINGS: No fracture or dislocation is identified.
[2020-07-29 17:29] LABS: ALT (SGPT) 11 U/L (8-55); Albumin 3.4 g/dL (3.4-4.8); Alkaline Phosphatase 120 U/L (40-110); BUN (Urea Nitrogen) 50 mg/dL (9.8-20.1); Calc. Creatinine Clearance 0 mL/min (70-130); Estimated GFR-MDRD 22; Globulin 4.6 g/dL (2.4-3.5); Glucose 191 mg/dL (80-115)
--- NOTE | 2020-07-29 17:29 | RAD ---
XR Tib Fib Lt Leg 2 View HISTORY: Trauma, left leg pain FINDINGS: The left tibia and fibula appear intact.
[2020-07-29] MEDS ORDERED: Morphine 4 MG/ML VIAL ONE (18:42)
[2020-07-29] MEDS ORDERED: Ondansetron PF 4 MG/2 ML Vial ONE (18:42)
[2020-07-29] MEDS ORDERED: Ondansetron ODT 4 MG TAB PO PRN (19:05)
[2020-07-29] MEDS ORDERED: Dextrose 5% in Water 1,000 ML IV PRN (19:05)
[2020-07-29] MEDS ORDERED: Insulin Regular 300 UNITS/3 ML VIAL SC PRN (19:05)
[2020-07-29] MEDS ORDERED: Morphine 2 MG/ML VIAL SLOW IVP PRN (19:05)
[2020-07-29] MEDS ORDERED: Morphine 4 MG/ML VIAL SLOW IVP PRN (19:05)
[2020-07-29] MEDS ORDERED: Dextrose 50% Abboject 50 ML SYRINGE SLOW IVP PRN (19:05)
[2020-07-29] MEDS ORDERED: Ondansetron PF 4 MG/2 ML Vial IVP PRN (19:05)
[2020-07-29] MEDS ORDERED: hydrALAZINE 20 MG/ML VIAL SLOW IVP PRN (19:05)
[2020-07-29 19:06] LABS: Magnesium 2.7 mg/dL (1.6-2.6); Phosphorus 4.1 mg/dL (2.3-4.7)
[2020-07-29] MEDS ORDERED: Cepastat Lozenges 1 LOZ PO PRN (19:12)
[2020-07-29] MEDS ORDERED: Sodium Chloride 0.9% 1,000 ML IV SCH (19:15)
--- NOTE | 2020-07-29 20:23 | RAD ---
XR Chest 1 View Portable HISTORY: Preoperative evaluation, left femur fracture COMPARISON: 10/15/2019 FINDINGS: The heart is enlarged. The aorta is tortuous. Left-sided pacemaker device remains in place. No lobar consolidation, pneumothoraces, jerald pulmonary edema or pleural effusions are seen. IMPRESSION: No radiographic evidence of acute cardiopulmonary process.
--- NOTE | 2020-07-29 20:36 | HP ---
This is Cristina Vera NP dictating a report for DR. CANTU. REQUESTING PHYSICIAN: Dr. Brannon. CONSULTS: Orthopedic Surgery, Dr. Sanchez. CHIEF COMPLAINT: Left leg pain, controlled fall. HISTORY OF PRESENT ILLNESS: This is a 65-year-old female who is a long-term resident at [facility] with a past medical history of hypertension, cerebrovascular accident with left hemiparesis, history of congestive heart failure, diastolic dysfunction, pacemaker placement, diabetes type 2, chronic kidney disease, and seizure disorder. The patient reports that she had help transferring from her wheelchair to her bed when she had a controlled fall to the floor. The patient had left leg pain after falling. The patient also reports that she has had some left knee pain for a week now. The patient denies any other injuries or hitting her head. The patient denies being lightheaded, dizzy, having chest pain or shortness of breath prior to falling. The patient is mainly wheelchair bound. The patient denies any recent illnesses including fever, chills, cough, or cold. The patient has an [id number] DNR. Patient wishes to be a full code. PAST SURGICAL HISTORY: Pacemaker placement; previous PEG tube placement, but removed; hysterectomy. PAST MEDICAL HISTORY: Cerebrovascular accident with left hemiparesis, paroxysmal atrial fibrillation; history of pacemaker placement; diastolic congestive heart failure; type 2 diabetes; vitamin D deficiency; hyperlipidemia; chronic kidney disease, baseline ranging from 2.3 to 2.7; and seizure disorder. SOCIAL HISTORY: Previous smoker. Lives in a fpc at [facility], mainly wheelchair-bound. REVIEW OF SYSTEMS: A 10-point review of systems is negative unless otherwise indicated in the above HPI. PHYSICAL EXAMINATION: OBJECTIVE VITAL SIGNS: Temperature 98.6, blood pressure 153/112, pulse 60, respirations 18, SpO2 of 96% on room air. GENERAL: Elderly female, awake and alert, in no distress. Slow slurred speech, which is baseline from a CVA. Oriented to person, place, and time. GCS 15. HEENT: Head is atraumatic and normocephalic. Pupils are equal bilateral. NECK: No JVD. Trachea midline. Mucous membranes are moist. No cervical spine tenderness. Normal range of motion of neck. Poor dentition. RESPIRATORY: Good inspiratory and expiratory effort, bilateral breath sounds clear. No wheezing, rales, or rhonchi. CARDIOVASCULAR: No pedal edema. Regular rate, no murmurs. ABDOMEN: Obese, soft, nontender. No peritoneal signs. Depend in place. EXTREMITIES: No pedal edema, contracted left upper extremity. Strength 3/5 in left lower extremity, strength 4/5 in right upper and right lower extremity. Pain to palpation in the left side. Neurovascularly intact x4. NEUROLOGIC: GCS 15. Slurred speech noted which is chronic, left hemiparesis. LABORATORY DATA: WBC 14.4; RBC 4.18; hemoglobin 11.3; hematocrit 38.8; platelets 40; bands 19; hypochromia, slight; platelet morphology appears decreased; polychromasia, slight; target cells, slight. Sodium 139, potassium 5.7, chloride 106, carbon dioxide 21, BUN 50, creatinine 2.68, estimated GFR 22, glucose 191, calcium 8.3, phosphorus 4.1, magnesium 2.7. AST 18, ALT 11, alkaline phos 120, albumin 3.4, globulin 4.6. PT 14.1, INR 1.1, APTT 21.4. DIAGNOSTIC DATA: 12-lead EKG, impression, junctional rhythm, rate 60, no peaked T-waves, no widened QRS, ST segments baseline. Left femur x-ray, impression, spiral fracture involving the distal shaft of the left femur without significant displacement. Pelvis x-ray, impression, no fracture dislocation is identified. Tibia-fibula x-ray, left, impression, intact. Chest x-ray, impression, heart is enlarged, no acute cardiopulmonary process. IMPRESSION: 1. Controlled fall from wheelchair. 2. Left spiral distal femur fracture. 3. Thrombocytopenia. 4. Chronic anemia. 5. Leukocytosis with bandemia. 6. Mild hyperkalemia without any EKG changes, likely secondary to dehydration. 7. Chronic kidney disease stage 4. 8. Cardiomegaly. 9. History of cerebrovascular accident with left-sided deficit and dysphagia, Type 2 diabetes mellitus, Pacemaker placement, Paroxysmal atrial fibrillation, Seizure disorder and Hypertension. PLAN: Admit patient to the surgical floor. Gentle hydration. Normal saline at 100. mL an hour. We will obtain UA and culture. We will refrain from all nephrotoxic agents. Pain control with Tylenol and tramadol 50 mg q.12 hours p.r.n. Orthopedic Surgery plans to take the patient to the OR tomorrow for repair of her left femur fracture. We will monitor I's and O's and ensure patient does not become fluid overloaded. The patient did have an echocardiogram done one year ago showing ejection fraction 60% to 65% with grade 2/3 diastolic dysfunction. We will reconcile patient's home medications. The plan will be discussed with the attending after this dictation. Job ID: [id number] MTDD
[2020-07-29] MEDS: Famotidine 20 MG TAB PO SCH (21:53)
[2020-07-29] MEDS: Senokot S 8.6-50 MG TAB PO SCH (21:53)
[2020-07-29] MEDS: traMADol HCl 50 MG TAB PO PRN (21:54)
[2020-07-29 23:02] VITALS: BMI 39.6
[2020-07-30] MEDS: Acetaminophen 500 MG TAB PO SCH ×5 (00:19→23:19)
[2020-07-30 05:55] LABS: Phosphorus 4.3 mg/dL (2.3-4.7)
[2020-07-30 05:58] LABS: Anion Gap 15 mmol/L (10-20); BUN (Urea Nitrogen) 59 mg/dL (9.8-20.1); Calc. Creatinine Clearance 25 mL/min (70-130); Carbon Dioxide 23 mmol/L (23-31); Chloride 108 mmol/L (98-107); Estimated GFR-MDRD 16; Glucose 168 mg/dL (80-115); Magnesium 2.5 mg/dL (1.6-2.6); Potassium 5.8 mmol/L (3.5-5.1); Sodium 140 mmol/L (136-145)
[2020-07-30 06:06] LABS: #Eosinphils 0.4 thou/uL (0.0-0.7); #Lymphocytes 1.6 thou/uL (1.20-3.40); #Monocytes 0.9 thou/uL (0.11-0.59); #Neutrophils 8.7 thou/uL (1.40-6.50); %Basophils 0.2 % (0.0-1.0); %Eosinophils 3.8 % (0.0-10.0); %Lymphocytes 13.8 % (21.0-51.0); %Monocytes 7.4 % (0.0-10.0); %Neutrophils 74.8 % (42.0-75.0); Hemoglobin 9.8 g/dL (12.0-16.0); Mean Corpuscular HGB CONC 30.3 g/dL (32.0-36.0); Mean Corpuscular Hemoglobin 27.7 pg (27.0-31.0); Mean Corpuscular Volume 91.3 fL (78.0-98.0); Mean Platelet Volume 10.3 fL (7.4-10.4); Platelet Count 160 thou/uL (130-400); RBC Distribution Width 14.2 % (11.5-14.5); Red Blood Cell (RBC) Count 3.56 mill/uL (4.20-5.40); White Blood Cell (WBC) Count 11.6 thou/uL (4.8-10.8)
[2020-07-30] MEDS ORDERED: CEFAZOLIN 2 GM in Premix Bag 1 BAG IVPB SCH (07:30)
[2020-07-30] MEDS ORDERED: Sodium Chloride 0.9% 1,000 ML IV SCH (07:38)
[2020-07-30 07:41] LABS: SARS-CoV-2 NAA Rapid Test Not Detected (NotDetected)
[2020-07-30] MEDS: levETIRAcetam 500 MG TAB PO SCH ×2 (09:04→20:11)
[2020-07-30] MEDS: Senokot S 8.6-50 MG TAB PO SCH ×2 (09:04→20:11)
[2020-07-30] MEDS: Polyethylene Glycol 3350 17 GM Packet PO SCH (09:05)
[2020-07-30] MEDS: Sodium Chloride 0.9% 1,000 ML IV SCH ×3 (09:13→18:48)
[2020-07-30] MEDS: traMADol HCl 50 MG TAB PO PRN (09:58)
--- NOTE | 2020-07-30 10:02 | CON ---
DATE OF CONSULTATION: This is Dangelo Anderson PA-C dictating a report for Max Sanchez MD. We were asked by Trauma to see patient. The patient is here from a detention. Apparently was transferring and fell and had a left femur fracture. She resides at [facility]. The patient is not communicating whatsoever with me. I got her to say her name and that is about it. I did move her leg and she screamed, but did not have any vocal speech type response. History and surgeries are all acquired from H and P by Cristina Vera, nurse practitioner. PAST SURGICAL HISTORY: Pacemaker, previous PEG tube, hysterectomy. PAST MEDICAL HISTORY: CVA with left hemiparesis, paroxysmal atrial fibrillation, pacemaker, diastolic congestive heart failure, type 2 diabetes, vitamin D deficiency, hyperlipidemia, chronic kidney disease, seizure disorder. SOCIAL HISTORY: Resides in a detention in [place], wheelchair-bound. Previous smoker. ALLERGIES: NO KNOWN DRUG ALLERGIES. MEDICATION: Home medication list again acquired from the computer. I have no response from the patient other than some moaning and groaning... 1. Tylenol. 2. Artificial Tears. 3. Aspirin. 4. Bisacodyl. 5. Carvedilol. 6. Chlorhexidine gluconate. 7. Diphenhydramine. 8. Furosemide. 9. Hydralazine. 10. . 11. Insulin glargine. Ipratropium. 12. Albuterol sulfate. 13. Morphine sulfate. 14. Zofran. 15. Polyethylene glycol. 16. Sennosides. 17. Docusate sodium. 18. Keppra. 19. Melatonin. 20. Sertraline. REVIEW OF SYSTEMS: Absolutely unobtainable. I am able to elicit a response with moving her left thigh, so will assume positive left leg pain due to fracture. PHYSICAL EXAMINATION: GENERAL: Female resting in a bed in room 3306, currently in no acute distress unless I move that left lower extremity. Oriented x1 only. HEENT: Scalp atraumatic. Face appears puffy, but symmetric. NECK: Supple, trachea midline. EXTREMITIES: Upper extremities equal size, shape, symmetry, normal bulk and tone. LUNGS: Respirations 16. No acute distress. PELVIS: No pain with rocking, but does have pain in that left lower extremity and winces and yells out. Same response with moving left lower extremity. Having patient follow commands is pretty minimal. I did get her to move her toes bilaterally and DP, PT pulses are intact. ASSESSMENT: 1. Left femur fracture status post fall. 2. Confusion versus incoherence, not able to answer most if any questions. PLAN: We need to fix the femur with rodding. We will have to discuss this with the family. The patient's nurse is going to talk to the family to get consent. We will discuss risks, benefits with family as the patient is unable to respond whatsoever. She is on the surgery schedule for 1'o clock today. We will get antibiotics consent from family and plan to go forward with surgery as long as she is cleared by the medical trauma team. Job ID: [id number] MTDD
[2020-07-30] MEDS ORDERED: Dextrose 50% Abboject 50 ML SYRINGE SLOW IVP SCH (10:15)
[2020-07-30] MEDS ORDERED: Insulin Regular 300 UNITS/3 ML VIAL IVP SCH (10:15)
[2020-07-30] MEDS ORDERED: Calcium Gluconate 4.6 MEQ in Sodium Chloride 0.9% 100 ML IVPB SCH (10:30)
[2020-07-30] MEDS ORDERED: Albuterol Sulfate 1.25 MG/3 ML NEB NEB SCH (10:30)
[2020-07-30] MEDS ORDERED: Promethazine HCl 25 MG/ML VIAL SLOW IVP PRN (11:47)
[2020-07-30] MEDS ORDERED: Ondansetron HCl/PF 4 MG/2 ML Vial IVP PRN (11:47)
[2020-07-30] MEDS ORDERED: Promethazine HCl 25 MG/ML VIAL IM PRN (11:47)
[2020-07-30] MEDS ORDERED: Fentanyl 100 MCG/2 ML VIAL ONE (11:49)
[2020-07-30 12:31] LABS: Potassium 5.4 mmol/L (3.5-5.1)
--- NOTE | 2020-07-30 13:23 | EKG ---
Test Reason : Blood Pressure : / mmHG Vent. Rate : 072 BPM Atrial Rate : 072 BPM P-R Int : 218 ms QRS Dur : 096 ms QT Int : 418 ms P-R-T Axes : 061 -39 079 degrees QTc Int : 457 ms Sinus rhythm with 1st degree A-V block Left axis deviation Nonspecific T wave abnormality Abnormal ECG Confirmed by GAY CRENSHAW ([id number]) on 07/30/2020 1:23:05 PM Referred By: WATSON DILLARD Confirmed By:GAY CRENSHAW
[2020-07-30] MEDS: Albuterol Sulfate 1.25 MG/3 ML NEB NEB SCH ×2 (14:58→22:12)
[2020-07-30] MEDS: Hydrocortisone Sod Succ/PF 100 mg/2 ml Vial IVP SCH ×2 (15:24→20:12)
--- NOTE | 2020-07-30 16:41 | PRG ---
DATE OF SERVICE: 07/30/2020 This patient was seen during morning rounds. SUBJECTIVE: The patient was awake and alert, sitting up in bed in no acute distress. She had questions regarding what surgery she was to be going to. She does not have complaints of pain at this time. She is scheduled to go the OR today for repair of her left distal femur spiral fracture. OBJECTIVE: VITAL SIGNS: She has been afebrile. Her pulse has been normal, ranging from 62 to 78. Her respirations have been normal, ranging from 16 to 20. Her oxygen saturation has been mostly in the 90s, but had one reported at 71%. It is unclear what the cause of this low saturation was. She is on 2 L nasal cannula. Her blood pressures were initially elevated in the 140s and 150s, but then dropped to systolics in the 90s. GENERAL: Elderly woman, lying comfortably in bed, in no acute distress. HEENT: Poor dentition. Difficult to understand. CARDIAC: Regular rate and rhythm. No murmurs/gallops. PULMONARY: Clear to auscultation bilaterally. No respiratory distress. NEUROLOGIC: Awake and alert, but appears disoriented. DIAGNOSTIC LABORATORY DATA: Her white count was elevated at 11.6, but down from 14.4 yesterday. Her hemoglobin was 9.8, down from 11.3 yesterday. Her hematocrit was 32.5, down from 38.8 yesterday. Her platelet count was 160. Her BMP showed a sodium of 140, potassium 5.8, chloride 108, calcium 8.0, phosphorus 4.3, magnesium 2.5. Her BUN and creatinine are 59 and 3.38 respectively. Her baseline creatinine is variable, but tends to be around 2.5 to 2.7. Her PTT was low at 21.4 and her INR was normal at 1.1. Her BNP was 246. She has a UA and urine culture pending. ASSESSMENT: 1. Left distal femur spiral fracture. 2. Thrombocytopenia. 3. Chronic anemia. 4. Mild hyperkalemia without EKG changes, likely secondary to dehydration. 5. Acute kidney injury on chronic kidney disease, stage 4. 6. History of cerebrovascular accident with left-sided deficit and dysphagia. 7. Type 2 diabetes mellitus. 8. Pacemaker placement. 9. Paroxysmal atrial fibrillation. 10. Seizure disorder. 11. Hypertension. PLAN: Ms. Dumont is scheduled to go to the OR today for repair of her left femur fracture. Her potassium is elevated, so she will be given calcium gluconate and, given her blood sugars above 160, she will be given half an amp of D50 and 5 units of regular insulin. After surgery, her potassium level will be re-drawn and if it is still elevated, Kayexalate will be given. She is also going to be started on albuterol, for the same reason. There is concern for adrenal insufficiency given her unexpected drop in blood pressure, so a cortisol level will be drawn. If low, hydrocortisone will be given. Urinalysis and urine culture are pending. Dr. Kenyon evaluated this patient today and agrees with this plan. Job ID: [id number] MTDD
[2020-07-30 17:25] LABS: Hemoglobin 9.5 g/dL (12.0-16.0); Mean Corpuscular HGB CONC 30.5 g/dL (32.0-36.0); Mean Corpuscular Volume 91.7 fL (78.0-98.0); Mean Platelet Volume 10.6 fL (7.4-10.4); Platelet Count 148 thou/uL (130-400); RBC Distribution Width 14.1 % (11.5-14.5); White Blood Cell (WBC) Count 11.7 thou/uL (4.8-10.8)
[2020-07-30 17:52] LABS: Anion Gap 16 mmol/L (10-20); BUN (Urea Nitrogen) 61 mg/dL (9.8-20.1); Calc. Creatinine Clearance 21 mL/min (70-130); Calcium 8.1 mg/dL (7.8-10.44); Carbon Dioxide 23 mmol/L (23-31); Chloride 108 mmol/L (98-107); Estimated GFR-MDRD 13; Glucose 134 mg/dL (80-115); Magnesium 2.6 mg/dL (1.6-2.6); Phosphorus 4.5 mg/dL (2.3-4.7); Potassium 5.6 mmol/L (3.5-5.1); Sodium 141 mmol/L (136-145)
[2020-07-30] MEDS ORDERED: Furosemide 20 MG/2 ML VIAL SLOW IVP SCH (18:15)
[2020-07-30 19:40] LABS: Bacteria/HPF None Seen HPF (None Seen); Bilirubin Negative (Negative); Blood, Urine Negative (Negative); Clarity Turbid (Clear); Glucose, Urine (Dipstick) Normal (Negative); Ketone, Urine Negative (Negative); Leukocyte 25 Leu/uL (Negative); Nitrite Negative (Negative); Protein, Urine (Dipstick) 200 mg/dL (Neg-Trace); Specific Gravity, Urine 1.017 (1.002-1.036); Urobilinogen Normal mg/dL (Less than 2); pH, Urine 5.5 (5.0-9.0)
[2020-07-30] MEDS: Melatonin 3 MG TAB PO SCH (20:11)
[2020-07-30] MEDS: Famotidine 20 MG TAB PO SCH (20:11)
[2020-07-31] MEDS: Hydrocortisone Sod Succ/PF 100 mg/2 ml Vial IVP SCH ×3 (04:16→21:46)
[2020-07-31 05:21] LABS: #Eosinphils 0.1 thou/uL (0.0-0.7); #Lymphocytes 1.6 thou/uL (1.20-3.40); #Monocytes 0.6 thou/uL (0.11-0.59); #Neutrophils 8.6 thou/uL (1.40-6.50); %Basophils 0.2 % (0.0-1.0); %Eosinophils 1.1 % (0.0-10.0); %Lymphocytes 14.9 % (21.0-51.0); %Monocytes 5.4 % (0.0-10.0); %Neutrophils 78.4 % (42.0-75.0); Hemoglobin 8.6 g/dL (12.0-16.0); Mean Corpuscular HGB CONC 30.4 g/dL (32.0-36.0); Mean Corpuscular Hemoglobin 27.8 pg (27.0-31.0); Mean Corpuscular Volume 91.5 fL (78.0-98.0); Mean Platelet Volume 10.5 fL (7.4-10.4); Platelet Count 142 thou/uL (130-400); Red Blood Cell (RBC) Count 3.09 mill/uL (4.20-5.40)
[2020-07-31 05:43] LABS: Anion Gap 16 mmol/L (10-20); BUN (Urea Nitrogen) 65 mg/dL (9.8-20.1); Calc. Creatinine Clearance 19 mL/min (70-130); Calcium 8.1 mg/dL (7.8-10.44); Carbon Dioxide 22 mmol/L (23-31); Chloride 107 mmol/L (98-107); Estimated GFR-MDRD 12; Glucose 183 mg/dL (80-115); Magnesium 2.7 mg/dL (1.6-2.6); Phosphorus 5.4 mg/dL (2.3-4.7); Potassium 5.1 mmol/L (3.5-5.1); Sodium 140 mmol/L (136-145)
[2020-07-31] MEDS ORDERED: Fentanyl 100 MCG/2 ML VIAL ONE (06:27)
[2020-07-31] MEDS ORDERED: SUGAMMADEX SODIUM 500 MG/5 ML VIAL ONE (06:56)
[2020-07-31] MEDS: Albuterol Sulfate 1.25 MG/3 ML NEB NEB SCH ×3 (07:00→22:19)
[2020-07-31] MEDS: Acetaminophen 500 MG TAB PO SCH ×4 (07:26→23:20)
[2020-07-31] MEDS: Sodium Chloride 0.9% 1,000 ML IV SCH ×2 (07:30→15:28)
[2020-07-31] MEDS ORDERED: Ondansetron HCl/PF 4 MG/2 ML Vial IVP PRN (08:26)
[2020-07-31] MEDS ORDERED: Promethazine HCl 25 MG/ML VIAL SLOW IVP PRN (08:26)
[2020-07-31] MEDS ORDERED: Promethazine HCl 25 MG/ML VIAL IM PRN (08:26)
[2020-07-31] MEDS: Senokot S 8.6-50 MG TAB PO SCH ×2 (09:13→21:44)
[2020-07-31] MEDS: Polyethylene Glycol 3350 17 GM Packet PO SCH (09:13)
[2020-07-31] MEDS ORDERED: Rocuronium Bromide 10 MG/ML (10ML VIAL) ONE (09:41)
[2020-07-31] MEDS ORDERED: Lidocaine 1% PF 5 ML VIAL ONE (09:41)
[2020-07-31] MEDS ORDERED: diphenhydrAMINE 50 MG/ML VIAL ONE (09:41)
[2020-07-31] MEDS ORDERED: Ondansetron PF 4 MG/2 ML Vial ONE (09:41)
--- NOTE | 2020-07-31 09:43 | OP ---
DATE OF PROCEDURE: 07/31/2020 PREOPERATIVE DIAGNOSIS: Left femoral shaft fracture. POSTOPERATIVE DIAGNOSIS: Left femoral shaft fracture. PROCEDURE PERFORMED: Intramedullary nail stabilization of left femoral shaft. ANESTHESIA: General. TWO WAY RADIO INSTALLER: Justin. ESTIMATED BLOOD LOSS: 100 mL. IMPLANT: Synthes 11 x 380 mm femoral EX-nail with 2 proximal and 2 distal cross-lock screws. COMPLICATIONS: None. DRAINS: None. SPECIMEN: None. OUTCOME: Satisfactory. INDICATIONS FOR PROCEDURE: The patient is a 65-year-old lady, who was predominantly wheelchair bound, but did sustain a ground level fall during a transfer, fracturing her left femur. This is a long spiral fracture extending from approximately the mid shaft and heading down to the supracondylar region. It is minimally displaced. At this time, the patient now to undergo intramedullary nail stabilization to facilitate continued transfers from bed to chair and to provide some pain relief. Informed consent has been obtained. I believe all questions have been answered. DESCRIPTION OF PROCEDURE: The patient was brought to the operating room and a time-out performed, followed by induction of general anesthesia. Next, the patient was positioned supine on the fracture table with the injured extremity held in longitudinal traction and the right leg held in extension at the hip to allow for AP and lateral C-arm imaging of the left leg. Next, a sterile prep and drape were performed on the left lateral thigh. A small incision was then made proximal to the tip of the greater trochanter. After skin was sharply incised, dissection was carried down bluntly such that the tip of the greater trochanter could be palpated. A threaded guidewire was then passed along the medial border of the greater trochanter into the proximal intramedullary canal of the femur. This was checked on both AP and lateral C-arm images. Next, a reamer was passed over this threaded guidewire to gain a starting point for intramedullary nail stabilization. A ball-tipped guidewire was then passed down the shaft of the femur into the distal femoral metaphysis. Next, a 12 mm reamer was passed over this guidewire. At the completion of this, an 11 x 380 mm nail was passed over the ball-tipped guidewire, delivering it across the fracture and into the distal femoral metaphysis. Once fully seated, two proximal cross-lock screws were placed using the standard outrigger jig. It should be noted that during the course of passage of the nail, my inventory assistant provided manipulation and stabilization of the femur to help me facilitate passage first of the ball-tipped guidewire and then secondly of the femoral nail. Once the nail was passed, proximal cross-lock screws were applied through the outrigger jig through 2 small stab wounds and then distal cross-locking was performed in freehand technique with my inventory assistant providing appropriate rotation of the femur to allow for this procedure again through 2 small stab wounds. With completion of this, final AP and lateral C-arm images were obtained of the distal nail, fracture site and proximal nail. The proximal most incision was closed in layers with 2-0 Vicryl and staple. The small stab wounds were closed with ruddy. Xeroform gauze and tape dressing was applied to the lateral thigh and then the patient was transferred to recovery room in stable condition. There were no complications. The patient tolerated the procedure well. Job ID: [id number]
[2020-07-31] MEDS: levETIRAcetam 500 MG TAB PO SCH ×2 (10:00→21:44)
[2020-07-31] MEDS: Insulin Regular 300 UNITS/3 ML VIAL SC PRN ×2 (12:06→16:56)
--- NOTE | 2020-07-31 12:27 | RAD ---
LEFT FEMUR 2 VIEWS: Date: 07/31/2020 HISTORY: Open reduction and internal fixation of fracture. FINDINGS: This is a series of C-arm images which show an intramedullary timur placed, stabilizing a mid shaft fem oral fracture in position. IMPRESSION: Placement of intramedullary timur, stabilizing mid shaft fracture. POS: JAN
[2020-07-31] MEDS: CEFAZOLIN 2 GM in Premix Bag 1 BAG IVPB SCH ×2 (15:25→23:21)
[2020-07-31] MEDS ORDERED: Hyoscyamine Sulfate SL 0.125 mg Tablet SL PRN (15:53)
[2020-07-31] MEDS ORDERED: Bisacodyl 10 MG SUPP PR PRN (15:53)
[2020-07-31] MEDS ORDERED: Acetaminophen 325 MG TAB PO PRN (15:53)
[2020-07-31] MEDS ORDERED: Ondansetron ODT 8 MG TAB PO PRN (16:05)
[2020-07-31] MEDS ORDERED: Morphine 10 MG/0.5 ML ORAL SYRINGE PO PRN (16:11)
--- NOTE | 2020-07-31 16:38 | RAD ---
Exam: XR Femur Rt 2 View STANDARD HISTORY: Injury after fall. COMPARISON: None FINDINGS: There is osteopenia. There is limited evaluation of the femoral neck due to overlying density and sec ondary to osteopenia which limits osseous detail. There is no displaced fracture or dislocation seen involving the right femur. Prominent vascular calcifications are seen in the femoral and poplite al arteries. IMPRESSION: 1. Limited evaluation femoral neck as described above. However, no obvious fracture is visualized inv olving the right femur, and there is no dislocation. 2. Osteopenia. 3. Prominent vascular calcifications.
[2020-07-31] MEDS: Carvedilol 6.25 MG TAB PO SCH (16:53)
[2020-07-31] MEDS: diphenhydrAMINE 25 MG CAP PO SCH ×2 (16:53→21:43)
--- NOTE | 2020-07-31 17:33 | CON ---
DATE OF CONSULTATION: 07/31/2020 CONSULTING PHYSICIAN: Cristina Vera NP REASON FOR CONSULTATION: Acute kidney injury. REASON FOR ADMISSION: Fall, left leg pain. HISTORY OF PRESENT ILLNESS: A 65-year-old female with history of CVA, left hemiparesis, atrial fibrillation, CHF, type 2 diabetes, came to the hospital with above complaint. The patient is being admitted here. She was found to have acute kidney injury. Her creatinine got elevated to 4.5. On admission, creatinine was 2.6. The last creatinine before that was 2.4. Her sister was at the bedside and is the medical power of deputy county attorney. As per her report, she is not on followup with any chlorine cells operator. She lives in [facility]. She does not ambulate and she is more communicative than today, but today she is not very communicative and could not give any history to me. PAST MEDICAL HISTORY: Positive for CVA, atrial fibrillation, pacemaker, CHF, type 2 diabetes, vitamin D deficiency, hyperlipidemia, CKD stage 4, seizure disorder. PAST SURGICAL HISTORY: Pacemaker placement, PEG tube placement, hysterectomy. HOME MEDICATIONS: Reviewed. ALLERGIES: NO KNOWN DRUG ALLERGIES. SOCIAL HISTORY: Previous smoker. Lives in senior living. FAMILY HISTORY: No history of kidney disease. REVIEW OF SYSTEMS: Could not be obtained. PHYSICAL EXAMINATION: GENERAL: Reveals a well-built female, in no apparent distress. VITAL SIGNS: Temperature 96, pulse 74, respiratory rate 20, blood pressure 134/76. HEENT: Atraumatic, normocephalic. NECK: Supple. CARDIOVASCULAR: S1 and S2. Rate and rhythm regular. RESPIRATORY: Clear. GASTROINTESTINAL: Abdomen is soft. MUSCULOSKELETAL: No edema. DERMATOLOGIC: No skin rash. NEUROLOGIC: Awake and residual paresis. PSYCHIATRIC: Depressed. LABORATORY DATA: Hemoglobin is 8.6 potassium 5.1, BUN is 65, creatinine is 4.5. ASSESSMENT AND PLAN: 1. Acute kidney injury with creatinine worsening. Agree with hydration for now. Avoid nephrotoxins. 2. Hyperkalemia, better. 3. Acidosis, stable. 4. Edema, controlled. 5. Hypoalbuminemia. 6. Anemia, rule out any bleed. 7. History of cerebrovascular accident with residual paresis. Prognosis is guarded. No acute indication for dialysis. The patient was on hospice as per the nurse and revoked for this admission. Continue hydration. Avoid nephrotoxins. We will monitor renal function. Thank you for the consult. Job ID: [id number]
[2020-07-31] MEDS ORDERED: Non-Formulary Item 1 EACH (Insulin Glargine,Hum.Rec.Anlog [Lantus Solostar] 100 UNIT/ML P SC SCH (21:00)
[2020-07-31] MEDS: Chlorhexidine Gluconate 15 ML UDCUP SSP SCH (21:43)
[2020-07-31] MEDS: hydrALAZINE 25 MG TAB PO SCH (21:43)
[2020-07-31] MEDS: Melatonin 3 MG TAB PO SCH (21:43)
[2020-07-31] MEDS: Polyvinyl Alcohol 1.4%/Povidone 0.6% Opth Drops EA EYE SCH (21:44)
[2020-07-31] MEDS: Famotidine 20 MG TAB PO SCH (21:44)
[2020-07-31] MEDS: Insulin Glargine 10 UNITS in Pre-Filled Syringe 1 EACH SC SCH (21:47)
--- NOTE | 2020-07-31 21:49 | PRG ---
DATE OF SERVICE: 07/31/2020 SUBJECTIVE: This is a 65-year-old female postop day zero, status post intramedullary nail for her left femur fracture. Upon my evaluation this evening, the patient is resting comfortably in bed, eyes closed. She appears to be sleeping. OBJECTIVE: VITAL SIGNS: Reviewed and as documented in the electronic medical record. The patient is afebrile. Vital signs within normal limits. GENERAL: Resting in bed. No acute distress. PULMONARY: Normal work of breathing. Symmetric rise. CARDIOVASCULAR: Appears well perfused. ASSESSMENT: Reviewed and as documented in the electronic medical record. PLAN: Continue supportive care as ordered. Continue to follow renal function closely. A.m. labs. Discontinue IV pain medication. The patient is still relatively drowsy postoperatively. Would hold all pain medications until she returns to baseline mental status. Plan of care was discussed with nurse at bedside and all questions were answered. Job ID: [id number]
[2020-08-01] MEDS: traMADol HCl 50 MG TAB PO PRN (02:21)
[2020-08-01] MEDS: Hydrocortisone Sod Succ/PF 100 mg/2 ml Vial IVP SCH ×3 (04:07→20:12)
[2020-08-01] MEDS: diphenhydrAMINE 25 MG CAP PO SCH ×4 (04:07→20:13)
[2020-08-01] MEDS: CEFAZOLIN 2 GM in Premix Bag 1 BAG IVPB SCH (06:11)
[2020-08-01] MEDS: Acetaminophen 500 MG TAB PO SCH ×4 (06:12→23:16)
[2020-08-01] MEDS: Furosemide 40 MG TAB PO SCH (06:16)
[2020-08-01] MEDS: Albuterol Sulfate 1.25 MG/3 ML NEB NEB SCH ×2 (06:28→14:47)
[2020-08-01] MEDS: Sodium Chloride 0.9% 1,000 ML IV SCH (06:59)
[2020-08-01] MEDS: Carvedilol 6.25 MG TAB PO SCH ×2 (10:10→16:18)
[2020-08-01] MEDS: Aspirin 325 mg Enteric Coated Tablet PO SCH (10:11)
[2020-08-01] MEDS: hydrALAZINE 25 MG TAB PO SCH ×3 (10:11→20:13)
[2020-08-01] MEDS: Chlorhexidine Gluconate 15 ML UDCUP SSP SCH ×2 (10:11→20:12)
[2020-08-01] MEDS: levETIRAcetam 500 MG TAB PO SCH ×2 (10:12→20:13)
[2020-08-01] MEDS: Polyethylene Glycol 3350 17 GM Packet PO SCH (10:12)
[2020-08-01] MEDS: Polyvinyl Alcohol 1.4%/Povidone 0.6% Opth Drops EA EYE SCH ×2 (10:12→21:52)
[2020-08-01 10:41] LABS: Anion Gap 20 mmol/L (10-20); BUN (Urea Nitrogen) 66 mg/dL (9.8-20.1); Calc. Creatinine Clearance 19 mL/min (70-130); Calcium 7.5 mg/dL (7.8-10.44); Carbon Dioxide 17 mmol/L (23-31); Chloride 111 mmol/L (98-107); Estimated GFR-MDRD 12; Glucose 134 mg/dL (80-115); Magnesium 2.5 mg/dL (1.6-2.6); Phosphorus 5.2 mg/dL (2.3-4.7); Potassium 4.9 mmol/L (3.5-5.1); Sodium 143 mmol/L (136-145)
[2020-08-01] MEDS ORDERED: Dextrose 5 %-0.45 % NaCl 1,000 ML IV SCH (11:15)
--- NOTE | 2020-08-01 13:24 | PRG ---
DATE OF SERVICE: 08/01/2020 SUBJECTIVE: The patient remains on the surgical floor. She is status post ground level fall, in which she sustained a left femoral shaft fracture. She is postop day 1, status post intramedullary nail stabilization of this fracture, which she tolerated well. Her hospital stay has been complicated by an acute kidney injury with worsening creatinine. At this time, that is being treated with IV hydration. The patient is being seen by Nephrology, specifically Dr. De La Torre, who agrees with this plan at this time and we will continue to follow her labs. Otherwise, the patient will begin working with Physical and Occupational Therapy as much as possible as she also has hemiplegia from a previous CVA. The nurses report no issues overnight. OBJECTIVE: VITAL SIGNS: Temperature is 97.5, heart rate 65, blood pressure 122/66, respirations 16, and oxygen saturation is 100% on room air. GENERAL: The patient is resting comfortably in bed. She is awake, responsive, and appropriate. She appears at her baseline and this was confirmed with her nursing staff at her facility. HEENT: Unremarkable. LUNGS: Clear to auscultation with good inspiratory and expiratory effort. HEART: Regular rate and rhythm. ABDOMEN: Soft, nontender with active bowel sounds. EXTREMITIES: Postop dressing is clean, dry, and intact. Capillary refill is less than 3 seconds. Pulses are 2+. LABORATORY FINDINGS: Sodium 143, potassium 4.9, chloride 111, CO2 of 17, BUN 66, creatinine is 4.55, glucose 134, magnesium 2.5, phosphorus 5.2. There are no radiographs to review this morning. ASSESSMENT: 1. Status post ground level fall. 2. Status post intramedullary nail stabilization of left femoral shaft fracture. 3. Acute kidney injury with worsening creatinine. 4. Hyperkalemia, improved. 5. Acidosis, stable. 6. History of cerebrovascular accident with residual hemiplegia. PLAN: Plan will be to change the patient's IV fluids to half-normal saline and increase the rate to 100 mL/hour. We will continue to follow her urinary output and her labs. Begin physical and occupational therapy as much as possible. I believe that the patient is likely near her baseline for mobility as her fracture is on her residual paresis extremity. She will continue to be monitored here until her renal function improves prior to returning to her facility. We will continue to encourage oral intake, pain control. Job ID: [id number]
[2020-08-01 13:36] LABS: #Eosinphils 0.2 thou/uL (0.0-0.7); #Lymphocytes 2.1 thou/uL (1.20-3.40); #Monocytes 0.7 thou/uL (0.11-0.59); #Neutrophils 8.5 thou/uL (1.40-6.50); %Basophils 0.2 % (0.0-1.0); %Eosinophils 1.4 % (0.0-10.0); %Lymphocytes 18.5 % (21.0-51.0); %Monocytes 5.7 % (0.0-10.0); %Neutrophils 74.2 % (42.0-75.0); Hemoglobin 8.3 g/dL (12.0-16.0); Mean Corpuscular HGB CONC 29.6 g/dL (32.0-36.0); Mean Corpuscular Volume 91.1 fL (78.0-98.0); Mean Platelet Volume 10.9 fL (7.4-10.4); Platelet Count 105 thou/uL (130-400); RBC Distribution Width 14.1 % (11.5-14.5); Red Blood Cell (RBC) Count 3.07 mill/uL (4.20-5.40); White Blood Cell (WBC) Count 11.5 thou/uL (4.8-10.8)
[2020-08-01 13:37] LABS: Anisocytosis SLIGHT = 6-15 cells (100X) (0-5/hpf); Hypochromia SLIGHT = 6-15 cells (100X) (0-5/hpf); MDiff Complete? YES; Ovalocytes SLIGHT = 2-5 cells (100X) (0-1/hpf); Platelet Morphology Comment Appears Decreased; Polychromasia SLIGHT = 2-3 cells (100X) (0-2/hpf); Schistocytes SLIGHT = 2-5 cells (100X) (0-1/hpf)
[2020-08-01] MEDS: Sodium Chloride 0.45% 1,000 ML IV SCH (16:16)
[2020-08-01] MEDS: Insulin Regular 300 UNITS/3 ML VIAL SC PRN (16:20)
[2020-08-01] MEDS: Melatonin 3 MG TAB PO SCH (20:13)
[2020-08-01] MEDS: Famotidine 20 MG TAB PO SCH (20:14)
[2020-08-01] MEDS: Insulin Glargine 10 UNITS in Pre-Filled Syringe 1 EACH SC SCH (20:20)
[2020-08-01] MEDS: Senokot S 8.6-50 MG TAB PO SCH ×2 (20:20→21:51)
[2020-08-01 20:43] LABS: Anion Gap 17 mmol/L (10-20); BUN (Urea Nitrogen) 68 mg/dL (9.8-20.1); Calc. Creatinine Clearance 20 mL/min (70-130); Calcium 7.2 mg/dL (7.8-10.44); Carbon Dioxide 16 mmol/L (23-31); Chloride 109 mmol/L (98-107); Estimated GFR-MDRD 12; Glucose 210 mg/dL (80-115); Potassium 5.3 mmol/L (3.5-5.1); Sodium 137 mmol/L (136-145)
--- NOTE | 2020-08-02 02:59 | PRG ---
DATE OF SERVICE: 08/01/2020 SUBJECTIVE: This is a 65-year-old female, postop day 1, status post IM nail for her left femur fracture. Upon my evaluation this evening, the patient is resting in bed. Appears comfortable and vocalized no complaints. She had her IV fluids adjusted earlier today. It was noted that she also did receive one dose of Lasix. OBJECTIVE: VITAL SIGNS: Reviewed and as documented in the electronic medical record. The patient is afebrile and vital signs within normal limits. GENERAL: Resting in bed. No acute distress. PULMONARY: Normal work of breathing. Symmetric rise. EXTREMITIES: Appear well perfused. LABORATORY FINDINGS: Sodium 137, potassium 5.3, chloride 109, carbon dioxide 16, BUN 68, creatinine 4.37, glucose 210, and calcium 7.2. Urine output approximately 500 mL. She is net positive 1400 mL. ASSESSMENT: Reviewed and as documented in the electronic medical record. PLAN: Continue supportive care as ordered. Continue to follow renal function closely to include urine output. A.M. labs, keeping an eye on her potassium levels. The patient is less drowsy this evening. Continue pain management as ordered. Continue IV hydration and hold Lasix per Nephrology recommendations. Job ID: [id number]
[2020-08-02] MEDS: Sodium Chloride 0.45% 1,000 ML IV SCH ×2 (04:09→19:35)
[2020-08-02] MEDS: Hydrocortisone Sod Succ/PF 100 mg/2 ml Vial IVP SCH (04:12)
[2020-08-02] MEDS: diphenhydrAMINE 25 MG CAP PO SCH ×4 (04:12→21:19)
[2020-08-02] MEDS: Acetaminophen 500 MG TAB PO SCH ×4 (04:17→23:06)
[2020-08-02] MEDS: Cyclobenzaprine 10 MG TAB PO PRN ×2 (04:17→23:06)
[2020-08-02 06:01] LABS: Chloride 107 mmol/L (98-107); Potassium 5.2 mmol/L (3.5-5.1); Sodium 134 mmol/L (136-145)
[2020-08-02] MEDS: Furosemide 40 MG TAB PO SCH (06:04)
[2020-08-02] MEDS: Insulin Regular 300 UNITS/3 ML VIAL SC PRN ×3 (06:04→16:33)
[2020-08-02 06:15] LABS: Anion Gap 18 mmol/L (10-20); BUN (Urea Nitrogen) 66 mg/dL (9.8-20.1); Calc. Creatinine Clearance 21 mL/min (70-130); Calcium 7.3 mg/dL (7.8-10.44); Carbon Dioxide 16 mmol/L (23-31); Estimated GFR-MDRD 13; Glucose 175 mg/dL (80-115); Magnesium 2.4 mg/dL (1.6-2.6); Phosphorus 4.5 mg/dL (2.3-4.7)
--- NOTE | 2020-08-02 06:58 | PRG ---
DATE OF SERVICE: 08/01/2020 SUBJECTIVE: The patient is seen and examined at bedside. She is awake, not very communicating. OBJECTIVE: GENERAL: This is a well-built female, in no apparent distress. VITAL SIGNS: Temperature 97.5, pulse 65, respiratory rate 16, blood pressure 122/66. HEENT: Atraumatic, normocephalic. NECK: Supple. CV: S1, S2 heard. RESPIRATORY: Clear. MUSCULOSKELETAL: 1+ edema. NEUROLOGICAL: Awake. LABORATORY DATA: Potassium 4.9, BUN is 66, and creatinine is 4.5. ASSESSMENT AND PLAN: 1. Acute kidney injury. Renal function seems to be stabilizing. Urine output might be improving. We will recommend cautious monitoring of renal function. 2. Hyperkalemia, better. 3. Edema. 4. Hypoalbuminemia. 5. Anemia. Overall renal function seems to be stabilizing. We will continue to monitor. Avoid nephrotoxins and hydration if tolerated. Job ID: [id number]
[2020-08-02 07:05] LABS: Band 2 % (5-11); Eosinophils 1 % (0-10); Hemoglobin 7.7 g/dL (12.0-16.0); Hypochromia SLIGHT = 6-15 cells (100X) (0-5/hpf); Lymphocytes 11 % (21-51); MDiff Complete? YES; Mean Corpuscular HGB CONC 30.4 g/dL (32.0-36.0); Mean Corpuscular Hemoglobin 27.4 pg (27.0-31.0); Mean Corpuscular Volume 90.3 fL (78.0-98.0); Mean Platelet Volume 10.5 fL (7.4-10.4); Monocytes 2 % (0-10); Neutrophil 84 % (42-75); Platelet Count 115 thou/uL (130-400); Platelet Morphology Comment Appears Decreased; RBC Distribution Width 13.9 % (11.5-14.5); White Blood Cell (WBC) Count 10.1 thou/uL (4.8-10.8)
[2020-08-02] MEDS: Senokot S 8.6-50 MG TAB PO SCH ×2 (08:35→21:19)
[2020-08-02] MEDS: Aspirin 325 mg Enteric Coated Tablet PO SCH (08:35)
[2020-08-02] MEDS: Carvedilol 6.25 MG TAB PO SCH ×2 (08:36→17:58)
[2020-08-02] MEDS: hydrALAZINE 25 MG TAB PO SCH ×3 (08:36→21:20)
[2020-08-02] MEDS: levETIRAcetam 500 MG TAB PO SCH ×2 (08:41→21:20)
[2020-08-02] MEDS: Chlorhexidine Gluconate 15 ML UDCUP SSP SCH ×2 (08:41→21:19)
[2020-08-02] MEDS: Polyethylene Glycol 3350 17 GM Packet PO SCH (08:41)
[2020-08-02] MEDS: Polyvinyl Alcohol 1.4%/Povidone 0.6% Opth Drops EA EYE SCH ×2 (10:50→21:49)
[2020-08-02] MEDS ORDERED: Sodium Bicarbonate 150 MEQ in Dextrose 5% in Water 1,000 ML IV SCH (11:00)
--- NOTE | 2020-08-02 11:27 | PRG ---
DATE OF SERVICE: 08/02/2020 SUBJECTIVE: The patient was seen during morning rounds. Awake, alert, in no distress. The patient denies any pain at this time. The patient denies any chest pain or shortness of breath. The patient had no overnight events. The patient is postop day #2, status post left femoral shaft fracture with intramedullary nail stabilization. The patient continues to be hydrated with IV normal saline for her acute kidney injury. The patient is being followed by Nephrology, who agrees to continue with hydration and followup labs for to monitor progress. OBJECTIVE: VITAL SIGNS: Temperature 98.2, pulse 61, respirations 16, SpO2 of 100% on 2 L nasal cannula, blood pressure 119/49. GENERAL: An elderly female, awake, alert, in no distress, dysphasia, which is baseline, difficult to understand the patient at times. HEENT: Head is atraumatic and normocephalic. Mucous membranes are moist, trachea midline. No JVD. RESPIRATORY: Good inspiratory and expiratory effort. No respiratory distress. CARDIAC: Regular rate, regular rhythm. ABDOMEN: Soft, nontender, nondistended. EXTREMITIES: Neurovascularly intact x4, postop dressing clean, dry, and intact. LABORATORY DATA: WBC 10.1, RBC 2.80, hemoglobin 7.7, hematocrit 25.3, platelets 115. Sodium 134, potassium 5.2, chloride 107, carbon dioxide 16, BUN 66, creatinine 4.10, estimated GFR 13, glucose 175, calcium 7.3, phosphorus 4.5, magnesium 2.4. BNP 1066. DIAGNOSTICS: No new diagnostics to review today. ASSESSMENT: 1. Status post ground level fall. 2. Postop day #2 intramedullary nail stabilization of the left femoral shaft fracture. 3. Acute kidney injury, creatinine mildly improved. 4. Hyperkalemia. 5. Acidosis, stable. 6. Hyponatremia. 7. History of cerebrovascular accident with residual hemiplegia. 8. Chronic kidney disease, stage 4. 9. Paroxysmal atrial fibrillation, pacemaker placement. 10. Diastolic congestive heart failure. 11. Type 2 diabetes. 12. Seizure disorder. PLAN: Continue hydration with half-normal saline at 100 mL an hour. Continue to monitor urinary output and renal function. Continue physical and occupational therapy. Restart the patient's home Lasix due to her history of diastolic dysfunction and elevated BNP. Once the patient's renal function improves, the patient will be discharged back to [facility]. Continue pain control and supportive care. Continue to monitor glucose. The plan was discussed with the patient, who agrees. Job ID: [id number]
--- NOTE | 2020-08-02 13:10 | PRG ---
DATE OF SERVICE: 08/02/2020 SUBJECTIVE: Patient was seen and examined at bedside and overnight events noted. Patient denies any shortness of breath or chest pain or palpitation. No history of nausea or vomiting or diarrhea or fever or chills or cramps. OBJECTIVE: GENERAL: This is an elderly female, in no apparent distress. VITAL SIGNS: Temperature 98.2. Heart rate 64. Respiratory rate 16. Blood pressure 114/72. HEENT: Atraumatic, normocephalic. Oral mucosa is moist. NECK: Supple. CARDIOVASCULAR: S1, S2 heard. Rate and rhythm regular. RESPIRATORY: Clear to auscultation. GASTROINTESTINAL: Abdomen is soft. MUSCULOSKELETAL: No tenderness. No edema. DERMATOLOGIC: No skin rash. NEUROLOGIC: Alert and awake and oriented x3. No focal neurologic deficits. Moving all the extremities. PSYCHIATRIC: Mood and affect normal. LABORATORY DATA: Potassium 5.2, BUN is 66, creatinine is 4.1, and bicarb is 16. ASSESSMENT AND PLAN: 1. Acute kidney injury on chronic kidney disease, stage 3. Renal function with improvement. 2. Continue hydration. 3. Acidosis, worsening and we will add bicarb drip. 4. Hyponatremia. 5. Hyperkalemia. We will have bicarb drip. 6. Edema, controlled. 7. Anemia. 8. Elevated BNP. Monitor cardiorespiratory status closely. Plan is to give bicarb drip slowly for acidosis and hyperkalemia. Okay with Lasix if needed. Job ID: [id number]
[2020-08-02] MEDS ORDERED: Hydrocortisone Sod Succ/PF 100 mg/2 ml Vial IVP SCH (21:00)
[2020-08-02] MEDS: Famotidine 20 MG TAB PO SCH (21:19)
[2020-08-02] MEDS: Melatonin 3 MG TAB PO SCH (21:19)
[2020-08-02] MEDS: Insulin Glargine 10 UNITS in Pre-Filled Syringe 1 EACH SC SCH (21:57)
[2020-08-02] MEDS: Heparin 5,000 UNITS/ML VIAL SC SCH (21:59)
[2020-08-03] MEDS ORDERED: Sodium Chloride 0.45% 1,000 ML IV SCH (01:30)
[2020-08-03 05:52] LABS: #Eosinphils 0.2 thou/uL (0.0-0.7); #Lymphocytes 1.3 thou/uL (1.20-3.40); #Monocytes 0.5 thou/uL (0.11-0.59); #Neutrophils 6.2 thou/uL (1.40-6.50); %Basophils 0.2 % (0.0-1.0); %Eosinophils 2.7 % (0.0-10.0); %Lymphocytes 15.8 % (21.0-51.0); %Monocytes 5.6 % (0.0-10.0); %Neutrophils 75.8 % (42.0-75.0); Hemoglobin 6.9 g/dL (12.0-16.0); Mean Corpuscular HGB CONC 31.4 g/dL (32.0-36.0); Mean Corpuscular Hemoglobin 28.2 pg (27.0-31.0); Mean Corpuscular Volume 89.7 fL (78.0-98.0); Mean Platelet Volume 10.5 fL (7.4-10.4); Platelet Count 129 thou/uL (130-400); RBC Distribution Width 13.9 % (11.5-14.5); Red Blood Cell (RBC) Count 2.47 mill/uL (4.20-5.40); White Blood Cell (WBC) Count 8.1 thou/uL (4.8-10.8)
[2020-08-03] MEDS: Acetaminophen 500 MG TAB PO SCH ×4 (06:00→23:37)
[2020-08-03] MEDS: Furosemide 40 MG TAB PO SCH (06:00)
[2020-08-03] MEDS: diphenhydrAMINE 25 MG CAP PO SCH ×4 (06:00→21:53)
[2020-08-03 06:19] LABS: Anion Gap 14 mmol/L (10-20); BUN (Urea Nitrogen) 65 mg/dL (9.8-20.1); Calc. Creatinine Clearance 23 mL/min (70-130); Carbon Dioxide 25 mmol/L (23-31); Chloride 102 mmol/L (98-107); Estimated GFR-MDRD 15; Glucose 182 mg/dL (80-115); Magnesium 2.3 mg/dL (1.6-2.6); Phosphorus 3.9 mg/dL (2.3-4.7); Potassium 4.7 mmol/L (3.5-5.1); Sodium 136 mmol/L (136-145)
[2020-08-03] MEDS: Insulin Regular 300 UNITS/3 ML VIAL SC PRN (06:45)
[2020-08-03 08:01] LABS: Hemoglobin 6.9 g/dL (12.0-16.0); Mean Corpuscular HGB CONC 30.5 g/dL (32.0-36.0); Mean Corpuscular Hemoglobin 27.3 pg (27.0-31.0); Mean Corpuscular Volume 89.5 fL (78.0-98.0); Mean Platelet Volume 10.4 fL (7.4-10.4); Platelet Count 132 thou/uL (130-400); Red Blood Cell (RBC) Count 2.51 mill/uL (4.20-5.40); White Blood Cell (WBC) Count 8.7 thou/uL (4.8-10.8)
[2020-08-03] MEDS: Polyethylene Glycol 3350 17 GM Packet PO SCH (08:32)
[2020-08-03] MEDS: Senokot S 8.6-50 MG TAB PO SCH ×2 (08:32→21:53)
[2020-08-03] MEDS: Chlorhexidine Gluconate 15 ML UDCUP SSP SCH ×2 (08:32→21:57)
[2020-08-03] MEDS: Heparin 5,000 UNITS/ML VIAL SC SCH ×2 (08:33→21:54)
[2020-08-03] MEDS: levETIRAcetam 500 MG TAB PO SCH ×2 (08:33→21:53)
[2020-08-03] MEDS: Ferrous Sulfate 325 MG TAB PO SCH ×2 (08:34→21:54)
[2020-08-03] MEDS: Carvedilol 6.25 MG TAB PO SCH ×2 (08:35→16:45)
[2020-08-03] MEDS: hydrALAZINE 25 MG TAB PO SCH ×3 (08:41→21:53)
[2020-08-03] MEDS: Polyvinyl Alcohol 1.4%/Povidone 0.6% Opth Drops EA EYE SCH ×2 (08:47→21:55)
[2020-08-03] MEDS: Ascorbic Acid 500 mg Chewable Tablet PO SCH ×2 (09:04→21:53)
--- NOTE | 2020-08-03 12:43 | PRG ---
DATE OF SERVICE: 08/03/2020 SUBJECTIVE: A 65-year-old female being seen for acute kidney injury. The patient denies any nausea, vomiting, or chest pain. OBJECTIVE: GENERAL: On examination, the patient is awake and alert. VITAL SIGNS: Afebrile, pulse 75, breathing at 16, and blood pressure 141/85. HEENT: Head normocephalic and atraumatic. Eyes intact, no ulcers. Nose intact, no ulcers. Ears intact, no ulcers. NECK: Supple. No JVD. CHEST: Symmetrical and clear. CARDIOVASCULAR: Shows S1 and S2, no rub, no murmur. GASTROINTESTINAL: Abdomen is soft, bowel sounds positive. EXTREMITIES: Show no edema or ulcers. SKIN: Shows no rash or petechiae. MUSCULOSKELETAL: Shows no joint swelling or stiffness. GENITOURINARY: Shows no Whiting or CVA tenderness. NEUROLOGIC: Motor intact. Cranial nerves intact. LABORATORY DATA: Reviewed. ASSESSMENT AND PLAN: 1. Chronic kidney disease, stage 5 with acute kidney injury, improved. 2. Hypertension, stable. 3. Anemia, stable. Medications based on GFR are appropriate. No indication for dialysis. Job ID: [id number]
--- NOTE | 2020-08-03 13:44 | PRG ---
DATE OF SERVICE: 08/03/2020 SUBJECTIVE: On rounds this morning, the patient was awake and alert and in no acute distress. She was resting comfortably in bed and denied pain. The patient reports that she did not eat breakfast, but did drink a cup of coffee. She reports that she is not a breakfast eater. She is now postoperative day #3 status post left femoral shaft fracture with intramedullary nail stabilization. On exam this morning, the patient's fluids are still running; however, during table rounds the fluids were ordered to stop. The patient currently still has a Whiting in place. The patient has not yet received blood that was ordered this morning. OBJECTIVE: VITAL SIGNS: Temperature 98.3, pulse 65, respirations 18, O2 saturation 100% on 3 L nasal cannula, and blood pressure 152/79. GENERAL: The patient is an elderly female, in no acute distress. She is awake and able to answer questions; however, dysarthria is present, which appears to be her baseline. HEENT: Head is atraumatic and normocephalic. Mucous membranes are moist. RESPIRATORY: Bilateral symmetric chest rise. No respiratory distress. CARDIAC: Regular rate and rhythm. ABDOMEN: Nondistended. LABORATORY DATA: White blood cell count 8.7, RBC 2.51, hemoglobin 6.9, hematocrit 22.4, and platelet count 132. Sodium 136, potassium 4.7, chloride 102, BUN 65, creatinine 3.74, estimated GFR 15, glucose 182, and calcium 7. Phosphorous 3.9. Magnesium 2.3. BNP 1125.1. Vitamin D 5.8. Intact PTH 506.9. DIAGNOSTIC STUDIES: No new diagnostics to review today. ASSESSMENT: 1. Status post ground-level fall. 2. Postoperative day #3 of intramedullary nail stabilization of the left femoral shaft fracture. 3. Acute kidney injury, creatinine continues to improve. 4. Hyperkalemia, improved. 5. Acidosis, stable. 6. Hyponatremia, improved. 7. History of cerebrovascular accident with residual hemiplegia. 8. Chronic kidney disease, stage 4. 9. Paroxysmal atrial fibrillation, pacemaker placement. 10. Diastolic congestive heart failure. 11. Type 2 diabetes. 12. Seizure disorder. PLAN: The patient's fluids were discontinued this morning at table rounds as the patient appears to be eating and drinking normally. On rounds this morning, she continued to have Whiting in place; however, we will discontinue the Whiting today as neither Trauma Service nor Utility Tractor Operator see a need for it. The patient's home Lasix was restarted. We will continue to monitor her in's and out's. 1 unit of blood ordered due to low Hgb. Will continue to monitor. Continue physical and occupational therapy. Continue pain control and supportive care. Continue to monitor glucose. Plan for the patient to return to [facility] pending further renal improvement. The patient was seen and evaluated by Dr. Kenyon during morning rounds, discussed plan of care with the patient who is in agreement. Job ID: [id number] MTDD
--- NOTE | 2020-08-03 16:13 | ULT ---
RENAL ULTRASOUND: History: Acute renal insufficiency FINDINGS: Exam is very limited as patient is unable to roll on her side and body habitus precluded detail. I do not definitively see a left kidney and only questionably see a portion of what may be a right ki dney. Bladder is empty with a Whiting in place. IMPRESSION: Technically limited examination. Basically neither kidney was definitively visualized. POS: JAN
[2020-08-03] MEDS: Melatonin 3 MG TAB PO SCH (21:53)
[2020-08-03] MEDS: Insulin Glargine 10 UNITS in Pre-Filled Syringe 1 EACH SC SCH (21:55)
[2020-08-03] MEDS: Famotidine 20 MG TAB PO SCH (21:57)
[2020-08-03] MEDS: Cyclobenzaprine 10 MG TAB PO PRN (23:46)
[2020-08-04] MEDS: diphenhydrAMINE 25 MG CAP PO SCH ×3 (03:56→15:56)
[2020-08-04] MEDS: Acetaminophen 500 MG TAB PO SCH ×3 (05:36→17:32)
[2020-08-04 05:54] LABS: #Eosinphils 0.8 thou/uL (0.0-0.7); #Monocytes 0.8 thou/uL (0.11-0.59); #Neutrophils 6.2 thou/uL (1.40-6.50); %Basophils 0.4 % (0.0-1.0); %Eosinophils 7.7 % (0.0-10.0); %Lymphocytes 20.2 % (21.0-51.0); %Monocytes 7.7 % (0.0-10.0); %Neutrophils 63.9 % (42.0-75.0); Hemoglobin 8.8 g/dL (12.0-16.0); Mean Corpuscular HGB CONC 31.5 g/dL (32.0-36.0); Mean Corpuscular Volume 89.1 fL (78.0-98.0); Mean Platelet Volume 9.9 fL (7.4-10.4); Platelet Count 170 thou/uL (130-400); RBC Distribution Width 14.1 % (11.5-14.5); Red Blood Cell (RBC) Count 3.15 mill/uL (4.20-5.40); White Blood Cell (WBC) Count 9.7 thou/uL (4.8-10.8)
[2020-08-04] MEDS: Furosemide 40 MG TAB PO SCH (06:01)
[2020-08-04 06:10] LABS: Anion Gap 11 mmol/L (10-20); BUN (Urea Nitrogen) 59 mg/dL (9.8-20.1); Calc. Creatinine Clearance 26 mL/min (70-130); Calcium 7.5 mg/dL (7.8-10.44); Carbon Dioxide 27 mmol/L (23-31); Chloride 105 mmol/L (98-107); Estimated GFR-MDRD 17; Glucose 58 mg/dL (80-115); Magnesium 2.3 mg/dL (1.6-2.6); Phosphorus 2.5 mg/dL (2.3-4.7); Potassium 4.3 mmol/L (3.5-5.1); Sodium 139 mmol/L (136-145)
[2020-08-04] MEDS ORDERED: PHOS-NAK 1 PKT PACK PO SCH (07:00)
[2020-08-04] MEDS: Polyethylene Glycol 3350 17 GM Packet PO SCH (08:59)
[2020-08-04] MEDS: Chlorhexidine Gluconate 15 ML UDCUP SSP SCH (08:59)
[2020-08-04] MEDS: Senokot S 8.6-50 MG TAB PO SCH (09:00)
[2020-08-04] MEDS: Heparin 5,000 UNITS/ML VIAL SC SCH (09:00)
[2020-08-04] MEDS: Carvedilol 6.25 MG TAB PO SCH ×2 (09:00→17:35)
[2020-08-04] MEDS: Ascorbic Acid 500 mg Chewable Tablet PO SCH (09:01)
[2020-08-04] MEDS: Ferrous Sulfate 325 MG TAB PO SCH (09:01)
[2020-08-04] MEDS: levETIRAcetam 500 MG TAB PO SCH (09:01)
[2020-08-04] MEDS: hydrALAZINE 25 MG TAB PO SCH ×2 (09:02→15:56)
[2020-08-04] MEDS: Polyvinyl Alcohol 1.4%/Povidone 0.6% Opth Drops EA EYE SCH (09:02)
[2020-08-04 11:51] VITALS: TEMP 98.6
[2020-08-04 17:39] VITALS: BP 170/87
--- NOTE | 2020-08-04 19:28 | PRG ---
DATE OF SERVICE: 08/04/2020 SUBJECTIVE: A 65-year-old female being seen for acute kidney injury. The patient denied, nausea, vomiting, or chest pain. PHYSICAL EXAMINATION: General: The patient is awake and alert. Vital Signs: Afebrile, pulse 69, breathing at 16, blood pressure 145/80. HEENT: Head normocephalic and atraumatic. Eyes intact, no ulcers. Nose intact, no ulcers. Ears intact, no ulcers. Neck: Supple. No JVD. Chest: Symmetrical and clear. Cardiovascular: Shows S1 and S2, no rub, no murmur. Gastrointestinal: Abdomen is soft, bowel sounds positive. Extremities: Show no edema or ulcers. Skin: Shows no rash or petechiae. Musculoskeletal: Shows no joint swelling or stiffness. Genitourinary: Shows no Whiting or CVA tenderness. Neurologic: Motor intact. Cranial nerves intact. LABORATORY DATA: Lab showed hemoglobin 8.8. Potassium is 4.3, creatinine is 3.3. ASSESSMENT AND PLAN: 1. Chronic kidney disease, stage 4, stable. 2. Acute kidney injury, improved. 3. Hypertension, stable. 4. Anemia, stable. 5. Medication based on GFR appropriate. The patient will follow up with Dr. De La Torre as an outpatient. Job ID: [id number]
--- NOTE | 2020-08-05 07:46 | PQF ---
CLINICAL DOCUMENTATION CLARIFICATION FORM: Dear : Carmine Kenyon Date / Time: 08/05/2020 0746 Please exercise your independent, professional judgment in responding to the clarification form. Clinical indicators are provided on the bottom of this form for your review Please check appropriate box(es): DIASTOLIC HEART FAILURE: A. ACUITY [ ] Acute [ ] Acute on Chronic [ x ] Chronic Physician Signature: Date/Time: For continuity of documentation, please document condition throughout progress notes and discharge summary. Thank You. To be completed by CDI/Coding staff for physician review: Present Clinical Indicators - Signs / Symptoms / Labs Results and Location in Medical Record [X] BP 152/72, Pulse 74, Resp 20, Temp 98.9 Vital signs 07/29 [X] BNP 339.2; 246.1 Laboratory 07/29 [X] Elevated BNP PN p1 07/30 Ponzio RESTUARANT CREW WORKER-BC [X] Edema PN p1 07/30 Ponzio RESTUARANT CREW WORKER-BC [X] Restart home lasix due to her hx of diastolic dysfunction and elevate BNP PN p1 07/31 Ponzio RESTUARANT CREW WORKER-BC [X] LVEF estimated 50-55% Echocardiogram Dr Cochran 07/31 [X] Chest Xray: no jerald pulmonary edema or pleural effusion Chest Xray 07/29 [X] Cardiomegaly H&P p3 07/29 Ponzio RESTUARANT CREW WORKER-BC [X] no JVD PN 08/04 Dr. Shepherd [X] CHF diastolic H&P p1 07/29 Ponzio RESTUARANT CREW WORKER-BC Present Risk Factors Results and Location in Medical Record [X] 65 year-old Female H&P p1 07/29 Ponzio RESTUARANT CREW WORKER-BC [X] Hx of CVA with left hemiparesis H&P p1 07/29 Ponzio RESTUARANT CREW WORKER-BC [X] HTN H&P p1 07/29 Ponzio RESTUARANT CREW WORKER-BC [X] CKD H&P p1 07/29 Ponzio RESTUARANT CREW WORKER-BC [X] DM H&P p1 07/29 Ponzio RESTUARANT CREW WORKER-BC [X] Former smoker H&P p1 07/29 Ponzio RESTUARANT CREW WORKER-BC [X] HLD H&P p1 07/29 Ponzio RESTUARANT CREW WORKER-BC [X] Afib H&P p1 07/29 Ponzio RESTUARANT CREW WORKER-BC Present Treatments Results and Location in Medical Record [X] Aspirin 325 mg oral MAR 10/3 [X] IV Lasix 40 mg MAR 07/30 [X] Lasix 40 mg oral JAN 06 [X] Echocardiogram Procedure Dr Cochran 07/31 [X] Chest Xray Collected 07/29 [X] Oxygen via NC PN 07/30 Dr. Garber CDS/Finishing Frame Runner Signature: Sallie Crum Phone #: ext [phone] Date/Time: 08/05/2020 0746 This is a permanent part of the Medical Record [facility]
--- NOTE | 2020-08-05 07:47 | PQF ---
CLINICAL DOCUMENTATION CLARIFICATION FORM: Dear : Carmine Kenyon Date / Time: 08/05/2020 0746 Please exercise your independent, professional judgment in responding to the clarification form. Clinical indicators are provided on the bottom of this form for your review Please check appropriate box(es): [ x ] Encephalopathy: Etiology: [ x ] Metabolic [ ] Toxic [ ] Unspecified [ ] Other (please specify) [ ] Transient Alteration of Awareness [ ] Other diagnosis [ ] Unable to determine In addition, please specify: Present on Admission (POA): [ x] Yes [ ] No [ ] Unable to determine Physician Signature: Date/Time: For continuity of documentation, please document condition throughout progress notes and discharge summary. Thank You. To be completed by CDI/Coding staff for physician review: Present Clinical Indicators - Signs / Symptoms / Labs Results and Location in Medical Record [X] BP 152/72, Pulse 74, Resp 20, Temp 98.9 Vital signs 07/29 [X] Had help transferring from her wheelchair to her bed when she had a controlled fall to the floor H&P p1 07/29 Ponzio DESTINATION IMAGINATION COORDINATOR-BC [X] Confusion versus incoherence, not able to answer most if any question Consult Dr Sanchez 07/30 [X] The patient is not communicating Consult Dr Sanchez 07/30 [X] Awake and alert but appears disoriented PN Dr. Garber 07/30 Present Risk Factors Results and Location in Medical Record [X] 65 year-old Female H&P p1 07/29 Ponzio DESTINATION IMAGINATION COORDINATOR-BC [X] Hx of CVA with left hemiparesis H&P p1 07/29 Ponzio DESTINATION IMAGINATION COORDINATOR-BC [X] HTN H&P p1 07/29 Ponzio DESTINATION IMAGINATION COORDINATOR-BC [X] CHF diastolic H&P p1 07/29 Ponzio DESTINATION IMAGINATION COORDINATOR-BC [X] CKD H&P p1 07/29 Ponzio DESTINATION IMAGINATION COORDINATOR-BC [X] DM H&P p1 07/29 Ponzio DESTINATION IMAGINATION COORDINATOR-BC [X] Seizure Disorder H&P p1 07/29 Ponzio DESTINATION IMAGINATION COORDINATOR-BC [X] Former smoker H&P p1 07/29 Ponzio DESTINATION IMAGINATION COORDINATOR-BC [X] DHEERAJ PN p1 08/04 Dr. Shepherd [X] Acidosis PN p1 08/03 Dr. Hernandez [X] Hyponatremia PN p1 08/03 Dr. Hernandez Present Treatments Results and Location in Medical Record [X] IVF NS 1L JAN 05 [X] Lactulaose 30 mg oral JAN 06 [X] Dextrose/Sodium Chloride D 5 NS JAN 06 [X] Monitor and replacement of electrolytes PN p1 08/03 Dr. Hernandez CDS/Siene Maker Signature: Sallie Jacques Radames Phone #: ext [phone] Date/Time: 08/05/2020 0746 This is a permanent part of the Medical Record [facility]
--- NOTE | 2020-08-05 14:00 | DIS ---
DATE OF ADMISSION: 07/29/2020 DATE OF DISCHARGE: 08/04/2020 RESIDENT: Jaymie Hernandez MD ADMITTING ATTENDING: Dr. Choudhury. DISCHARGE ATTENDING: Dr. Kenyon. CONSULTS: 1. Nephrology, Dr. De La Torre. 2. Orthopedics, Dr. Sanchez. CASE MANAGEMENT: OT, PT. PROCEDURES/IMAGES: 1. Intramedullary nail stabilization of left femoral shaft with Dr. Sanchez on 07/31/2020. 2. Femur x-ray (07/29): Spiral fracture involving distal shaft of the left femur without significant displacement. 3. Pelvis x-ray (07/29): No fracture or dislocation is identified. 4. Tibia/fibula x-ray (07/29): Left tibia and fibula appear intact. 5. Chest x-ray (07/29): No radiographic evidence of acute cardiopulmonary process. 6. Femur x-ray (07/31): Placement of intramedullary timur, stabilizing the shaft fracture. 7. Femur x-ray (07/31): Limited evaluation of the femoral neck. However, no obvious fracture is visualized involving the right femur, and there is no dislocation, osteopenia, prominent vascular calcifications. 8. Echocardiogram (07/31): Left ventricular ejection fraction estimated at 50% to 55%, moderate concentric left ventricular hypertrophy, diastolic dysfunction, left atrium is severely dilated. 9. Renal ultrasound (08/03): Technically limited examination. Basically, neither kidney was definitively visualized. PHYSICAL EXAMINATION: VITAL SIGNS: Temperature 98.6, pulse 65, respirations 20, O2 saturation 93% on room air, and blood pressure 145/80. GENERAL: Elderly female, awake, alert, in no acute distress; dysphagia and dysarthria which are present at baseline. HEENT: Head is atraumatic and normocephalic. Mucous membranes are moist. RESPIRATORY: Good inspiratory and expiratory effort. Bilateral symmetric chest rise. No respiratory distress. CARDIAC: Regular rate, regular rhythm. NEUROLOGIC: Appears neurovascularly intact. GCS is 15. LABORATORY DATA: White blood cell count 9.7, hemoglobin 8.8, hematocrit 28.1, platelet count 170. Sodium 139, potassium 4.3, chloride 105, carbon dioxide 27, BUN 59, creatinine 3.34. PRIMARY DIAGNOSIS: Left femoral shaft fracture, status post intramedullary nail stabilization. SECONDARY DIAGNOSES: 1. Acute kidney injury on chronic kidney disease, stage 4. 2. Hyperkalemia. 3. Acidosis. 4. Hyponatremia. 5. History of cerebrovascular accident with residual hemiplegia. 6. Paroxysmal atrial fibrillation with pacemaker. 7. Diastolic congestive heart failure. 8. Type 2 diabetes. 9. Seizure disorder. DISCHARGE MEDICATIONS: 1. MiraLax 17 g p.o. daily. 2. Dulcolax 10 mg p.o. daily p.r.n. 3. Hydralazine 50 mg p.o. t.i.d. 4. Keppra 500 mg p.o. b.i.d. 5. DuoNeb 3 mL nebulized q.4 hours. 6. Senokot 1 tablet p.o. h.s. 7. Lantus SoloStar 10 units subcutaneous q.h.s. 8. Chlorhexidine gluconate 15 mL p.o. b.i.d. 9. Artifical Tears 1 drop each eye b.i.d. 10. Zofran 8 mg p.o. q.4 hours p.r.n. 11. Aspirin 325 mg p.o. daily. 12. Sertraline 50 mg tablet p.o. daily. 13. Carvedilol 12.5 mg p.o. b.i.d. with meals. 14. Lasix 40 mg p.o. daily. 15. Melatonin 3 mg p.o. h.s. 16. Hyoscyamine sulfate 1 tab q.4 hours p.r.n. 17. Benadryl 25 mg p.o. q.6 hours. 18. Morphine sulfate 0.25 mL p.o. q.3 hours p.r.n. 19. Tylenol Extra Strength 1000 mg p.o. q.6 hours. 20. Cepastat lozenges, 1 lozenge p.o. q.2 hours p.r.n. 21. Ferrous sulfate 325 mg p.o. b.i.d. 22. Flexeril 5 mg p.o. t.i.d. p.r.n. 23. Lactulose 30 g p.o. daily. 24. Tramadol 50 mg p.o. q.12 hours p.r.n. 25. Vitamin C 500 mg p.o. b.i.d. DISCONTINUED MEDICATIONS: Discontinued the patient's home dose of Tylenol 650 mg p.o. q.6 hours p.r.n. as the patient was directed to take Tylenol Extra Strength 1000 mg p.o. q.6 hours. HISTORY OF PRESENT ILLNESS/HOSPITAL COURSE: The patient is a 65-year-old female who is long-term resident at [facility] with past medical history of hypertension, CVA with left hemiparesis, diastolic congestive heart failure, paroxysmal atrial fibrillation with pacemaker, type 2 diabetes, chronic kidney disease, and seizure disorder, who presented to the ED after a fall while transferring from wheelchair to bed. The patient was found to have a spiral fracture involving the distal shaft of the left femur, and Orthopedic Surgery was consulted. Dr. Sanchez took the patient to the OR on 07/31 for intramedullary nail stabilization of the left femoral shaft. While hospitalized, the patient developed an DHEERAJ on her CKD stage 4. Nephrology was consulted, and IV hydration was continued and her home Lasix was held. A renal ultrasound was also obtained, but the kidneys were not visualized. The patient's creatinine continued to trend down, and after a couple of days, the patient's IV fluids were stopped and her home Lasix was resumed due to her diastolic heart failure. The patient was also noted to have electrolyte abnormalities of hyperkalemia and hyponatremia, all of which were treated and resolved. On day of discharge, the patient's pain was well controlled with a p.o. regimen, she was tolerating p.o. intake without any nausea or vomiting, and was stooling and voiding like normal. The patient worked with PT and OT during her hospital stay. The patient was seen and evaluated on morning rounds by Dr. Kenyon. As of this morning, the patient reports that she is doing well and has no questions or concerns. DISPOSITION: Stable. DISCHARGE INSTRUCTIONS: 1. Location: [facility]. 2. Diet: Diabetic diet, heart healthy. 3. Activity: Orthopedic limitations, weightbearing as tolerated, activity as tolerated. 4. Followup: Follow up with primary care provider, Dr. Joe Chavez, in 7 days for repeat blood work including BMP, and follow up with Dr. Irvin Yanes, orthopedist, in 14 days. Job ID: [id number] [facility]
== END 2020-08-04 18:53 | DRG 480 ==
LOC: ERS 16:07 → SURG A 20:40
PROVIDERS: ADMIT Surgery; ATTEND Surgery
PROC: 0QH936Z Insertion of Intramedullary Internal Fixation Device into Left Femoral Shaft, Percutaneous Approach (ICD-10-PCS; principal; 2020-07-31)
PROC: 30233N1 Transfusion of Nonautologous Red Blood Cells into Peripheral Vein, Percutaneous Approach (ICD-10-PCS; 2020-08-03)
DX: S72.342A Displaced spiral fracture of shaft of left femur, initial encounter for closed fracture (principal); G93.41 Metabolic encephalopathy; I69.354 Hemiplegia and hemiparesis following cerebral infarction affecting left non-dominant side; I50.32 Chronic diastolic (congestive) heart failure; N17.9 Acute kidney failure, unspecified; E87.2 Acidosis; N18.5 Chronic kidney disease, stage 5; I13.2 Hypertensive heart and chronic kidney disease with heart failure and with stage 5 chronic kidney disease, or end stage renal disease; W05.0XXA Fall from non-moving wheelchair, initial encounter; Z20.828 Contact with and (suspected) exposure to other viral communicable diseases; E87.5 Hyperkalemia; E86.0 Dehydration; G40.909 Epilepsy, unspecified, not intractable, without status epilepticus; E11.22 Type 2 diabetes mellitus with diabetic chronic kidney disease; I48.0 Paroxysmal atrial fibrillation; D69.6 Thrombocytopenia, unspecified; D63.1 Anemia in chronic kidney disease; E78.5 Hyperlipidemia, unspecified; E55.9 Vitamin D deficiency, unspecified; E88.09 Other disorders of plasma-protein metabolism, not elsewhere classified; I69.321 Dysphasia following cerebral infarction; Z95.0 Presence of cardiac pacemaker; Z90.710 Acquired absence of both cervix and uterus; Z79.899 Other long term (current) drug therapy; Z79.4 Long term (current) use of insulin; Z79.82 Long term (current) use of aspirin
CPT/HCPCS: 36415; 36416; 36430; 36600; 71045; 72170; 76000; 76770; 80048; 80053; 81001; 82306; 82533; 83735; 83880; 83970; 84100; 85025; 85610; 85730; 86850; 86900; 86901; 87086; 87635; 93005; 93010; 93306; 94640; 96374; 96375; C1713; J0690; J1200; J1644; J1720; J1815; J1940; J2270; J2405; J3010; J7070; J7620; P9016; Q0163; U0002; U0003

== ENCOUNTER 2020-08-25 21:58 | Inpatient (IN) | payer MEDICARE, MEDICAID ==
[2020-08-25] MEDS ORDERED: Aspirin Chewable 81 MG TAB ONE (22:23)
[2020-08-25] MEDS ORDERED: Furosemide 40 MG/4 ML VIAL ONE (22:23)
[2020-08-25] MEDS ORDERED: Nitroglycerin 50 MG/250 ML BOT 250 ML ONE (22:23)
[2020-08-25 22:36] LABS: #Eosinphils 0.4 thou/uL (0.0-0.7); #Lymphocytes 1.4 thou/uL (1.20-3.40); #Monocytes 0.5 thou/uL (0.11-0.59); #Neutrophils 5.2 thou/uL (1.40-6.50); %Basophils 0.3 % (0.0-1.0); %Lymphocytes 18.9 % (21.0-51.0); %Monocytes 6.8 % (0.0-10.0); Hemoglobin 9.3 g/dL (12.0-16.0); Mean Corpuscular HGB CONC 31.7 g/dL (32.0-36.0); Mean Corpuscular Hemoglobin 29.7 pg (27.0-31.0); Mean Corpuscular Volume 93.5 fL (78.0-98.0); Mean Platelet Volume 9.3 fL (7.4-10.4); Platelet Count 177 thou/uL (130-400); RBC Distribution Width 15.1 % (11.5-14.5); Red Blood Cell (RBC) Count 3.13 mill/uL (4.20-5.40); White Blood Cell (WBC) Count 7.6 thou/uL (4.8-10.8)
[2020-08-25 22:56] LABS: ALT (SGPT) Less than 7 U/L (8-55); AST (SGOT) 12 U/L (5-34); Albumin 3.4 g/dL (3.4-4.8); Alkaline Phosphatase 125 U/L (40-110); Anion Gap 12 mmol/L (10-20); BUN (Urea Nitrogen) 29 mg/dL (9.8-20.1); Bilirubin, Total 0.4 mg/dL (0.2-1.2); Calc. Creatinine Clearance 0 mL/min (70-130); Calcium 8.4 mg/dL (7.8-10.44); Carbon Dioxide 30 mmol/L (23-31); Chloride 104 mmol/L (98-107); Estimated GFR-MDRD 24; Glucose 194 mg/dL (80-115); Magnesium 2.2 mg/dL (1.6-2.6); Potassium 4.5 mmol/L (3.5-5.1); Protein, Total 7.4 g/dL (6.0-8.3); Sodium 141 mmol/L (136-145)
[2020-08-25 23:16] LABS: CKMB 1.4 ng/mL (0-6.6)
[2020-08-25 23:18] LABS: Bacteria/HPF None Seen HPF (None Seen); Bilirubin Negative (Negative); Blood, Urine 2+ (Negative); Clarity Extra Turbid (Clear); Glucose, Urine (Dipstick) Normal (Negative); Ketone, Urine Negative (Negative); Leukocyte Negative Leu/uL (Negative); Nitrite Negative (Negative); Protein, Urine (Dipstick) 300 mg/dL (Neg-Trace); RBC/HPF 21-50 HPF (0-3); Specific Gravity, Urine 1.016 (1.002-1.036); Urobilinogen Normal mg/dL (Less than 2)
[2020-08-26] MEDS ORDERED: cefTRIAXone\\ROCEPHIN 1 GM VIAL ONE (00:02)
[2020-08-26] MEDS ORDERED: Enoxaparin Sodium 100 MG/ML SYRINGE ONE (00:02)
[2020-08-26] MEDS ORDERED: Ondansetron PF 4 MG/2 ML Vial IVP PRN (00:41)
[2020-08-26] MEDS ORDERED: Ondansetron ODT 4 MG TAB PO PRN (00:41)
[2020-08-26] MEDS ORDERED: Acetaminophen 650 MG Suppository PR PRN (00:41)
[2020-08-26] MEDS ORDERED: Acetaminophen 325 MG TAB PO PRN (00:41)
[2020-08-26] MEDS ORDERED: HYDROcodone/Acetaminophen 5/325 mg Tablet PO PRN ×2 (00:41)
[2020-08-26] MEDS ORDERED: HumaLOG 300 UNITS/3 ML VIAL SC PRN (00:41)
[2020-08-26] MEDS ORDERED: hydrALAZINE 20 MG/ML VIAL SLOW IVP PRN (00:41)
[2020-08-26] MEDS ORDERED: Dextrose 5% in Water 1,000 ML IV PRN (00:41)
[2020-08-26] MEDS ORDERED: Dextrose 50% Abboject 50 ML SYRINGE SLOW IVP PRN (00:41)
[2020-08-26] MEDS ORDERED: Guaifenesin DM 100-10/5 ML UDCUP PO PRN (00:41)
--- NOTE | 2020-08-26 00:56 | PDOC.HHP ---
Hospitalist HPI - History of Present Illness sob History of Present Illness: Case of an 65y/o female with pmhx of htn, atrial fibrillation, diastolic chf, cad epilepsy, ckd, s/p ppm hld and hx of cva who presets to the Ed due to sob and chest pain. history is limited, pt with a speech impediment likely the result of her cva. apparently patient was on her usual state of health until today when she started with worsening dyspnea and chest pain. patient was brought to hospital by ems, at arrival it was noted she was on respiratory distress and bipap was started. ekg showed no ischemic changes, b/p was in the 230 and cxr showed considerable vascular congestion and pulmonary edema for which nitro drip was started. patient states chest pain was 8/10 of crushing quality with associated palpitation, denies any diaphoresis. after initial stabilization hospitalist was called for further evaluation and management. patient denies any recent fever chills or malaise, does refers some dysuria of 1 week of duration Hospitalist ROS - Review of Systems All other systems reviewed; all pertinent +/- noted in HPI/Subj Hospitalist History - Past Surgical History Past Surgical History: reports: Hysterectomy - Family History Other Family History: unable to asses due to speech impediment - Social History Smoking Status: Never smoker Alcohol: reports: None Drugs: reports: none Living Situation: Long Term - Exam General Appearance: ill appearing Eye: PERRL, anicteric sclera ENT: normocephalic atraumatic, no oropharyngeal lesions Neck: supple, symmetric, no thyromegaly Heart: RRR, no murmur, no gallops Respiratory: no ronchi, rales, tachypneic, wheezes Gastrointestinal: soft, non-tender, non-distended, normal bowel sounds Extremities: 2+ LE edema Skin: normal turgor, no lesions, no rashes Neurological: hemiplegia, speech deficit Musculoskeletal: normal tone Psychiatric: normal affect, normal behavior, A&O x 3 Hospitalist Results - Labs Result Diagrams: 08/25/20 22:23 08/25/20 22:23 Lab results: WBC 7.6 thou/uL (4.8-10.8) 08/25/20 22:23 Hgb 9.3 g/dL (12.0-16.0) L 08/25/20 22:23 Hct 29.3 % (36.0-47.0) L 08/25/20 22: MCV 93.5 fL (78.0-98.0) 08/25/20 22:23 Plt Count 177 thou/uL (130-400) 08/25/20 22:23 Neutrophils % 69.0 % (42.0-75.0) 08/25/20 22:23 Sodium 141 mmol/L (136-145) 08/25/20 22:23 Potassium 4.5 mmol/L (3.5-5.1) 08/25/20 22:23 Chloride 104 mmol/L (98-107) 08/25/20 22:23 Carbon Dioxide 30 mmol/L (23-31) 08/25/20 22: BUN 29 mg/dL (9.8-20.1) H 08/25/20 22:23 Creatinine 2.45 mg/dL (0.6-1.1) H 08/25/20 22:23 Glucose 194 mg/dL (80-115) H 08/25/20 22:23 Lactic Acid 0.8 mmol/L (0.5-2.2) 08/25/20 22: Calcium 8.4 mg/dL (7.8-10.44) 08/25/20 22: Total Bilirubin 0.4 mg/dL (0.2-1.2) 08/25/20 22:23 AST 12 U/L (5-34) 08/25/20 22:23 ALT Less than 7 U/L (8-55) L 08/25/20 22: Alkaline Phosphatase 125 U/L (40-110) H 08/25/20 22:23 CK-MB (CK-2) 1.4 ng/mL (0-6.6) 08/25/20 22: Troponin I 0.185 ng/mL (< 0.028) H 08/25/20 22: B-Natriuretic Peptide 1592.2 pg/mL (0-100) H 08/25/20 22:23 Serum Total Protein 7.4 g/dL (6.0-8.3) 08/25/20 22: Albumin 3.4 g/dL (3.4-4.8) 08/25/20 22: Urine Ketones Negative mg/dL (Negative) 08/25/20 22:57 Urine Blood 2+ (Negative) A 08/25/20 22:57 Urine Nitrite Negative (Negative) 08/25/20 22:57 Ur Leukocyte Esterase Negative Nory/uL (Negative) 08/25/20 22:57 Urine RBC 21-50 HPF (0-3) A 08/25/20 22:57 Urine WBC 11-20 HPF (0-3) A 08/25/20 22:57 Ur Squamous Epith Cells 4-6 HPF (0-3) A 08/25/20 22:57 Urine Bacteria None Seen HPF (None Seen) 08/25/20 22:57 Hospitalist H&P A/P - Problem (1) Acute respiratory failure with hypoxemia Code(s): J96.01 - ACUTE RESPIRATORY FAILURE WITH HYPOXIA Status: Acute (2) Acute diastolic heart failure Code(s): I50.31 - ACUTE DIASTOLIC (CONGESTIVE) HEART FAILURE Status: Acute (3) CKD stage 4 secondary to hypertension Code(s): I12.9 - HYPERTENSIVE CHRONIC KIDNEY DISEASE W STG 1-4/UNSP CHR KDNY; N18.4 - CHRONIC KIDNEY DISEASE, STAGE 4 (SEVERE) Status: Acute (4) Diabetes mellitus Code(s): E11.9 - TYPE 2 DIABETES MELLITUS WITHOUT COMPLICATIONS Status: Acute (5) HTN (hypertension) Code(s): I10 - ESSENTIAL (PRIMARY) HYPERTENSION Status: Acute (6) Seizure Status: Acute (7) Diabetes Code(s): E11.9 - TYPE 2 DIABETES MELLITUS WITHOUT COMPLICATIONS Status: Chronic (8) Elevated d-dimer Code(s): R79.89 - OTHER SPECIFIED ABNORMAL FINDINGS OF BLOOD CHEMISTRY Status: Acute - Plan Plan: Case of an 65y/o female with the stated pmhx who presents with sudden onset of respiratory distress and chest pain likely secondary to decompensated chf respiratory failure - on bipap - cxr with vascular congestion / pulmonary edema - likely secondary to d chf -nurse sane consulted - atrovent q 6hr, holding albuterol to prevent increase HR D chf - cxr with vascular congestion / pulmonary edema - elevated probnp - will continue beta naye - lasix 40mg iv bid - unable to start acei due to ckd and aggressive diuretic therapy - on nitroglycerin drip -count team member consulted - initial troponin negative, continue to trend elevated d dimer - unable to get cta due to renal function - will get b/l lower extremity doppler - will start lovenox full dose - consider v/q scan when pt is more stable DM - aac + ss - long acting insulin atrial fib - s/p ppm - on beta naye - on asa cad - on beta naye, statin and aspirin hx of cva - on secondary prevention with asa + statin hld - continue statin htn - currently controlled with nitro drip epilepsy - continue patti
[2020-08-26] MEDS ORDERED: Nitroglycerin 50 MG/250 ML BOT 250 ML IVPB SCH (01:00)
[2020-08-26] MEDS: Furosemide 40 MG/4 ML VIAL SLOW IVP SCH ×2 (05:18→14:49)
--- NOTE | 2020-08-26 06:24 | RAD ---
PORTABLE CHEST: Date: 08/25/2020 HISTORY: Shortness of breath. COMPARISON: 07/29/2020. FINDINGS: Cardiomegaly and mild vascular congestion again noted, similar to the prior exam. There is now new hazy infiltrate in the right upper and lower lung [place] when compared to the prior study. COVID pneumonia should be excluded. There may be small effusions. Pacemaker leads are unchanged. IMPRESSION: 1. Cardiomegaly with mild vascular congestion. 2. Hazy infiltrate or edema in the right lung. 3. Small effusions. POS: AGW
--- NOTE | 2020-08-26 07:37 | ULT ---
PRELIMINARY REPORT/[facility]/EMERGENCY AFTER HOURS PROCEDURE EXAM: US Duplex bilateral Lower Extremity Veins. CLINICAL HISTORY: BLE pain/edema, elevated d dimer HX CHF TECHNIQUE: Real-time ultrasound scan of the veins of the bilateral lower extremity with color Doppler flow, spec tral waveform analysis and compression. COMPARISON: None provided. FINDINGS: DEEP VEINS: The common femoral, femoral, and popliteal veins are echolucent and compressible. These vessels demon strate respiratory variation and augmentation. There is normal color Doppler flow throughout. The visualized calf veins are also patent. SUPERFICIAL VEINS: The visualized greater saphenous vein is patent. SOFT TISSUES: No popliteal fossa cyst or other abnormalities. IMPRESSION: No deep venous thrombosis in the bilateral lower extremity. ELECTRONICALLY SIGNED BY: Polo Dawkins MD Aug 26, 2020 3:53:43 AM CDT This report is intended for review by the ordering physician only, in accordance of law. If you recei ve this report in error, please call [facility] at [phone]. FINAL REPORT BILATERAL LOWER EXTREMITY VENOUS DOPPLER ULTRASOUND: 08/26/2020 HISTORY: Bilateral lower extremity pain, edema, swelling, assess for DVT, elevated d-dimer. FINDINGS: Sonographic assessment of the lower extremity venous structures obtained bilaterally with D oppler interrogation including color flow and spectral analysis. Common femoral vein, greater saphenous vein, profunda femoral vein, femoral vein, popliteal vein, and posterior tibial vein patent bilaterally. No evidence for DVT. IMPRESSION: No evidence for deep venous thrombosis of either lower extremity This report is in agreement with the preliminary report by [facility]. Transcribed Date/Time: 08/26/2020 8:19 AM
[2020-08-26 07:42] LABS: #Basophils 0.1 thou/uL (0.0-0.2); #Eosinphils 0.5 thou/uL (0.0-0.7); #Lymphocytes 1.8 thou/uL (1.20-3.40); #Monocytes 0.6 thou/uL (0.11-0.59); #Neutrophils 5.9 thou/uL (1.40-6.50); %Basophils 0.9 % (0.0-1.0); %Eosinophils 5.2 % (0.0-10.0); %Lymphocytes 19.9 % (21.0-51.0); %Neutrophils 67.2 % (42.0-75.0); Hemoglobin 8.3 g/dL (12.0-16.0); Mean Corpuscular HGB CONC 31.3 g/dL (32.0-36.0); Mean Corpuscular Volume 92.6 fL (78.0-98.0); Mean Platelet Volume 9.5 fL (7.4-10.4); Platelet Count 184 thou/uL (130-400); Red Blood Cell (RBC) Count 2.85 mill/uL (4.20-5.40); White Blood Cell (WBC) Count 8.8 thou/uL (4.8-10.8)
[2020-08-26 07:58] LABS: ALT (SGPT) Less than 7 U/L (8-55); AST (SGOT) 10 U/L (5-34); Albumin 3.2 g/dL (3.4-4.8); Alkaline Phosphatase 116 U/L (40-110); Anion Gap 12 mmol/L (10-20); BUN (Urea Nitrogen) 28 mg/dL (9.8-20.1); Bilirubin, Total 0.4 mg/dL (0.2-1.2); Calc. Creatinine Clearance 34 mL/min (70-130); Calcium 8.4 mg/dL (7.8-10.44); Carbon Dioxide 28 mmol/L (23-31); Chloride 104 mmol/L (98-107); Estimated GFR-MDRD 23; Globulin 3.6 g/dL (2.4-3.5); Glucose 183 mg/dL (80-115); Magnesium 2.1 mg/dL (1.6-2.6); Potassium 4.1 mmol/L (3.5-5.1); Protein, Total 6.8 g/dL (6.0-8.3); Sodium 140 mmol/L (136-145)
[2020-08-26] MEDS ORDERED: Carvedilol 3.125 MG TAB PO SCH (08:00)
[2020-08-26 08:01] LABS: Troponin I 0.164 ng/mL (< 0.028); Troponin I 0.166 ng/mL (< 0.028)
[2020-08-26] MEDS: Ipratropium Bromide 2.5 ml Neb NEB SCH ×3 (08:24→13:49)
[2020-08-26] MEDS ORDERED: Aspirin 325 mg Enteric Coated Tablet PO SCH (09:00)
[2020-08-26] MEDS ORDERED: levETIRAcetam 500 MG TAB PO SCH (09:00)
[2020-08-26] MEDS: Enoxaparin Sodium 100 MG/ML SYRINGE SC SCH (09:12)
[2020-08-26] MEDS: Famotidine 20 MG TAB PO SCH (09:12)
[2020-08-26 10:38] LABS: SARS-CoV-2 MS2 Positive; SARS-CoV-2 N Gene Negative; SARS-CoV-2 S Gene Negative; SARS-CoV-2 by NAA Not Detected (NotDetected); SARS-CoV-2 orf1ab Negative
--- NOTE | 2020-08-26 10:40 | CON ---
DATE OF CONSULTATION: HISTORY OF PRESENT ILLNESS: Ashlie Dumont is a 65-year-old correction patient, status post CVA, presented with chest pain, elevated blood pressure. ER blood pressure was 204/115, temperature 98, respiratory rate 21, sats apparently BiPAP, pulse is 68. She is now on nitroglycerin drip in the MICU, reason for consult. Extensive history is obtained. She is somewhat aphasic, though she is very appropriate and is in no distress. Answers questions relatively slow. PAST MEDICAL HISTORY: AFib, hypertension, CHF, coronary artery disease, seizures, diabetes, reflux, high cholesterol, lipidemia, previous CVA, renal failure. PAST SURGICAL HISTORY: Hysterectomy, cardiac cath, pacemaker, surgery of the left leg. SOCIAL HISTORY: No alcohol or tobacco abuse at this time. [facility] MEDICATIONS: Include: 1. Tramadol 50. 2. Keppra 500 twice a day. 3. Hydralazine 50 t.i.d. 4. Benadryl. 5. Zoloft 50. 6. DuoNeb. 7. Lasix 40. 8. Flexeril. 9. Coreg 12.5 twice a day. She was started on all home medicines including the Coreg. ALLERGIES: NONE. REVIEW OF SYSTEMS: Otherwise, negative. PHYSICAL EXAMINATION: VITAL SIGNS: Temperature 98, sats room air, blood pressure 160/100. GENERAL: She is in no distress. Chest: No wheezing. No crackles. CARDIAC: Normal S1, S2. No gallops. ABDOMEN: No masses. LABORATORY DATA: Creatinine 2.5, BUN is 28. White count 8000. TSH is normal. BNP is elevated at 1592. Venogram done last night, shows no DVT. Chest x-ray shows cephalization, CHF. ASSESSMENT AND PLAN: Chest pain, coronary artery disease, congestive heart failure, previous CVA, azotemia, seizure disorders, chronic obstructive pulmonary disease. Agree with restarting home medications including Lasix, Coreg, and hydralazine. At this stage, not much for Pulmonary to order. Await input from Cardiology. If she is stable, she can be transferred later on to a monitored bed. Consultation note, 70 minutes, 50% direct patient care. Job ID: [id number]
--- NOTE | 2020-08-26 16:43 | PDOC.HOSPP ---
- Subjective Encounter Date: 08/26/20 Encounter Time: 16:30 Subjective: f/u for flash pulmonary edema and HTN urgency tx initially with BiPAP/IV Lasix/Nitroglycerin. Feels fine currently and off all Nitro/BiPAP with O2 @ 2L/min NC. - Objective Vital Signs & Weight: Vital Signs (12 hours) Temp Pulse Resp Pulse Ox 08/26/20 15:00 99.2 F 08/26/20 13:49 64 16 97 08/26/20 11:00 99.2 F 08/26/20 10:47 67 17 100 08/26/20 08:00 100 08/26/20 07:58 98.4 F Weight Weight 214 lb Most Recent Monitor Data Heart Rate from ECG 65 NIBP 151/56 NIBP BP-Mean 87 Respiration from ECG 21 SpO2 95 I&O: 08/25/20 08/26/20 08/27/20 06:59 06:59 06:59 Intake Total 498 Output Total 625 Balance -127 Result Diagrams: 08/26/20 07:27 08/26/20 07:28 Additional Labs: Accuchecks 08/26/20 08/26/20 13:02 06:06 POC Glucose 125 H 171 H Microbiology 08/25/20 22:57 Urine pearl catheter Urine Culture - Preliminary NO GROWTH AT 12 HOURS Laboratory Tests 08/25/20 08/25/20 08/25/20 22:23 22:23 22:23 Hgb D-Dimer 2.49 H Creatinine 2.45 H Lactic Acid Troponin I 0.185 H TSH 3rd Generation SARS-CoV-2 (PCR) 08/25/20 08/25/20 08/25/20 22:23 22:23 22:29 Hgb 9.3 L D-Dimer Creatinine Lactic Acid 0.8 Troponin I TSH 3rd Generation 1.5878 SARS-CoV-2 (PCR) 08/26/20 08/26/20 08/26/20 01:05 07:28 07:28 Hgb D-Dimer Creatinine 2.51 H Lactic Acid Troponin I 0.166 H TSH 3rd Generation SARS-CoV-2 (PCR) Not Detected 08/26/20 07:28 Hgb D-Dimer Creatinine Lactic Acid Troponin I 0.164 H TSH 3rd Generation SARS-CoV-2 (PCR) Radiology Reviewed by me: Yes (BLE dopp - neg for DVT) EKG Reviewed by me: Yes (Tele - SR) Hospitalist ROS - Medication Medications: Active Medications Generic Name Dose Route Start Last Admin Trade Name Karina PRN Reason Stop Dose Admin Aspirin 325 mg 08/26/20 09:00 08/26/20 09:12 Aspirin 325 Mg Enteric Coated Tablet PO 325 mg DAILY KALEB Administration Carvedilol 3.125 mg 08/26/20 08:00 08/26/20 09:12 Carvedilol 3.125 Mg Tab PO 3.125 mg BID-WM KALEB Administration Enoxaparin Sodium 100 mg 08/26/20 09:00 08/26/20 09:12 Enoxaparin Sodium 100 Mg/Ml Syringe SC 100 mg DAILY KALEB Administration Famotidine 20 mg 08/26/20 09:00 08/26/20 09:12 Famotidine 20 Mg Tab PO 20 mg DAILY KALEB Administration Furosemide 40 mg 08/26/20 06:00 08/26/20 14:49 Furosemide 40 Mg/4 Ml Vial SLOW IVP 40 mg 0600,1400 KALEB Administration Nitroglycerin/Dextrose 250 mls @ 0 mls/hr 08/26/20 01:00 08/26/20 10:39 Nitroglycerin 50 Mg/250 Ml Bot IVPB 250 mls INF KALEB Administration Protocol Titrate Ipratropium [place] 2.5 ml 08/26/20 06:30 08/26/20 13:49 Ipratropium [place] 2.5 Ml Neb NEB 2.5 ml [id number] KALEB Administration Levetiracetam 500 mg 08/26/20 09:00 08/26/20 09:12 Levetiracetam 500 Mg Tab PO 500 mg BID KALEB Administration - Exam General Appearance: NAD, awake alert Eye: PERRL, anicteric sclera ENT: normocephalic atraumatic, no oropharyngeal lesions Neck: supple, symmetric, no JVD, no thyromegaly, no lymphadenopathy Heart: no murmur, no gallops, no rubs, normal peripheral pulses Heart - other findings: S1, S2 Respiratory: CTAB, no wheezes, no rales, no ronchi Gastrointestinal: soft, non-tender, non-distended, normal bowel sounds, no palpable masses Gastrointestinal - other findings: PEG in place Extremities: no cyanosis, no clubbing, no edema Skin: normal turgor, no lesions Neurological - other findings: L hemiplegia, expressive dysphasia Musculoskeletal: generalized weakness Psychiatric: normal affect, A&O x 3 Hosp A/P (1) Acute diastolic heart failure Code(s): I50.31 - ACUTE DIASTOLIC (CONGESTIVE) HEART FAILURE Status: Acute Plan: EF 50-55%, diastolic dysfunction by echo 08/18, continue Lasix IV, monitor daily weight and I/O's (2) Acute respiratory failure with hypoxemia Code(s): J96.01 - ACUTE RESPIRATORY FAILURE WITH HYPOXIA Status: Acute Plan: Resolving after correction of pulmonary edema, O2 PRN (3) Elevated d-dimer Code(s): R79.89 - OTHER SPECIFIED ABNORMAL FINDINGS OF BLOOD CHEMISTRY Status: Acute Plan: Likely due to CHF exacerbation, d/c Lovenox in am (4) CKD stage 4 secondary to hypertension Code(s): I12.9 - HYPERTENSIVE CHRONIC KIDNEY DISEASE W STG 1-4/UNSP CHR KDNY; N18.4 - CHRONIC KIDNEY DISEASE, STAGE 4 (SEVERE) Status: Chronic Plan: Avoid nephrotoxic meds and limit contrast exposure, serial creatinine (5) Diabetes mellitus Code(s): E11.9 - TYPE 2 DIABETES MELLITUS WITHOUT COMPLICATIONS Status: Chron ic Plan: ISS, Glargine, serial accuchecks, ADA - Plan PT/OT, manager social, 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, DVT proph w/SCDs Stable currently D/C Nitroglycerin gtt O2 PRN Continue Lasix 40mg IV BID Continue Lovenox until 08/27/20 Resume home BP meds AM lab: BMP, CBC
[2020-08-26] MEDS ORDERED: traMADol HCl 50 MG TAB PO PRN (16:49)
[2020-08-26] MEDS ORDERED: Cyclobenzaprine 10 MG TAB PO PRN (16:49)
[2020-08-26] MEDS: Carvedilol 6.25 MG TAB PO SCH (18:09)
[2020-08-26 20:38] LABS: INR-International Normal Ratio 1.2; PTT 36.4 sec (22.9-36.1); Prothrombin Time 15.3 sec (12.0-14.7)
[2020-08-26] MEDS: Ferrous Sulfate 325 MG TAB PO SCH (21:17)
[2020-08-26] MEDS: Melatonin 3 MG TAB PO SCH (21:17)
[2020-08-26] MEDS: Ascorbic Acid 500 mg Chewable Tablet PO SCH (21:17)
[2020-08-26] MEDS: hydrALAZINE 25 MG TAB PO SCH (21:18)
[2020-08-26] MEDS: Senokot S 8.6-50 MG TAB PO SCH (21:18)
[2020-08-26] MEDS: levETIRAcetam 500 MG TAB PO SCH (21:18)
[2020-08-26] MEDS: Insulin Glargine 10 UNITS in Pre-Filled Syringe 1 EACH SC SCH (21:19)
[2020-08-26] MEDS: Chlorhexidine Gluconate 15 ML UDCUP SSP SCH (21:19)
[2020-08-26] MEDS: Polyvinyl Alcohol 1.4%/Povidone 0.6% Opth Drops EA EYE SCH (21:19)
[2020-08-26] MEDS ORDERED: cefTRIAXone\\ROCEPHIN 1 GM in Sodium Chloride 0.9% 100 ML IVPB SCH (23:00)
[2020-08-27] MEDS: Furosemide 40 MG/4 ML VIAL SLOW IVP SCH ×2 (07:01→12:32)
[2020-08-27] MEDS: Ferrous Sulfate 325 MG TAB PO SCH ×2 (10:11→20:02)
[2020-08-27] MEDS: hydrALAZINE 25 MG TAB PO SCH ×3 (10:11→20:01)
[2020-08-27] MEDS: Carvedilol 6.25 MG TAB PO SCH ×2 (10:12→18:40)
[2020-08-27] MEDS: levETIRAcetam 500 MG TAB PO SCH ×2 (10:12→20:02)
[2020-08-27] MEDS: Ascorbic Acid 500 mg Chewable Tablet PO SCH ×2 (10:12→20:01)
[2020-08-27] MEDS: Famotidine 20 MG TAB PO SCH (10:13)
[2020-08-27] MEDS: Chlorhexidine Gluconate 15 ML UDCUP SSP SCH ×2 (10:13→20:02)
[2020-08-27] MEDS: Aspirin 325 mg Enteric Coated Tablet PO SCH (10:13)
[2020-08-27] MEDS: Enoxaparin Sodium 100 MG/ML SYRINGE SC SCH (10:14)
[2020-08-27] MEDS: Polyethylene Glycol 3350 17 GM Packet PO SCH (10:15)
[2020-08-27] MEDS: Polyvinyl Alcohol 1.4%/Povidone 0.6% Opth Drops EA EYE SCH ×2 (10:15→20:03)
--- NOTE | 2020-08-27 10:18 | PDOC.HOSPP ---
- Subjective Encounter Date: 08/27/20 Encounter Time: 10:05 Subjective: f/u for pulmonary edema tx with IV Lasix/O2/Nitro gtt and initial BiPAP NIMV. States feeling better overall. Remains on 2L/min NC with sats 100%. - Objective Vital Signs & Weight: Vital Signs (12 hours) Temp Pulse Ox 08/27/20 07:55 98.8 F 08/27/20 07:15 100 08/27/20 03:59 97.4 F L 08/27/20 00:41 98.1 F Weight Weight 214 lb Most Recent Monitor Data Heart Rate from ECG 62 NIBP 141/69 NIBP BP-Mean 93 Respiration from ECG 14 SpO2 100 I&O: 08/26/20 08/27/20 08/28/20 06:59 06:59 06:59 Intake Total 498 1311 Output Total 625 1550 Balance -127 -239 Result Diagrams: 08/27/20 10:23 08/27/20 10:23 Additional Labs: Accuchecks 08/27/20 08/26/20 08/26/20 06:09 21:17 18:16 POC Glucose 104 H 155 H 149 H 08/26/20 13:02 POC Glucose 125 H Microbiology 08/25/20 22:57 Urine pearl catheter Urine Culture - Preliminary NO GROWTH AT 12 HOURS Laboratory Tests 08/25/20 08/25/20 08/25/20 22:23 22:23 22:23 Hgb D-Dimer 2.49 H Creatinine 2.45 H Lactic Acid Troponin I 0.185 H TSH 3rd Generation SARS-CoV-2 (PCR) 08/25/20 08/25/20 08/25/20 22:23 22:23 22:29 Hgb 9.3 L D-Dimer Creatinine Lactic Acid 0.8 Troponin I TSH 3rd Generation 1.5878 SARS-CoV-2 (PCR) 08/26/20 08/26/20 08/26/20 01:05 07:28 07:28 Hgb D-Dimer Creatinine 2.51 H Lactic Acid Troponin I 0.166 H TSH 3rd Generation SARS-CoV-2 (PCR) Not Detected 08/26/20 07:28 Hgb D-Dimer Creatinine Lactic Acid Troponin I 0.164 H TSH 3rd Generation SARS-CoV-2 (PCR) EKG Reviewed by me: Yes (Tele - V-paced) Hospitalist ROS - Medication Medications: Active Medications Generic Name Dose Route Start Last Admin Trade Name Karina PRN Reason Stop Dose Admin Ascorbic Acid 500 mg 08/26/20 21:00 08/26/20 21:17 Ascorbic Acid 500 Mg Chewable Tablet PO 500 mg BID KALEB Administration Carvedilol 12.5 mg 08/26/20 17:00 08/26/20 18:09 Carvedilol 6.25 Mg Tab PO 12.5 mg BID-WM KALEB Administration Chlorhexidine Gluconate 15 ml 08/26/20 21:00 08/26/20 21:19 Chlorhexidine Gluconate 15 Ml Udcup SSP 15 ml BID KALEB Administration Enoxaparin Sodium 100 mg 08/26/20 09:00 08/26/20 09:12 Enoxaparin Sodium 100 Mg/Ml Syringe SC 100 mg DAILY KALEB Administration Famotidine 20 mg 08/26/20 09:00 08/26/20 09:12 Famotidine 20 Mg Tab PO 20 mg DAILY KALEB Administration Ferrous Sulfate 325 mg 08/26/20 21:00 08/26/20 21:17 Ferrous Sulfate 325 Mg Tab PO 325 mg BID KALEB Administration Furosemide 40 mg 08/26/20 06:00 08/27/20 07:01 Furosemide 40 Mg/4 Ml Vial SLOW IVP 40 mg 0600,1400 KALEB Administration Hydralazine HCl 50 mg 08/26/20 21:00 08/26/20 21:18 Hydralazine 25 Mg Tab PO 50 mg TID KALEB Administration Insulin Glargine 10 units/ 0.1 mls @ 0 mls/hr 08/26/20 21:00 08/26/20 21:19 Miscellaneous Medication SC Not Given HS KALEB Ceftriaxone Sodium 1 gm/ 100 mls @ 200 mls/hr 08/26/20 23:00 08/27/20 00:12 Sodium Chloride IVPB 100 mls 2300 KALEB Administration Levetiracetam 500 mg 08/26/20 21:00 08/26/20 21:18 Levetiracetam 500 Mg Tab PO 500 mg BID KALEB Administration Melatonin 3 mg 08/26/20 21:00 08/26/20 21:17 Melatonin 3 Mg Tab PO 3 mg HS KALEB Administration Polyvinyl Alcohol/Povidone 0 each 08/26/20 21:00 08/26/20 21:19 Polyvinyl Alcohol 1.4%/Povidone 0.6% Opth Drops EA EYE 1 each BID KALEB Administration Senna/Docusate Sodium 1 tab 08/26/20 21:00 08/26/20 21:18 Senokot S 8.6-50 Mg Tab PO 1 tab HS KALEB Administration - Exam General Appearance: NAD, awake alert Eye: PERRL, anicteric sclera ENT: normocephalic atraumatic, no oropharyngeal lesions Neck: supple, symmetric, no JVD, no thyromegaly, no lymphadenopathy Heart: RRR, no gallops, no rubs, normal peripheral pulses Heart - other findings: S1, S2 Respiratory - other findings: coarse sounds bilat, diminished in bases Gastrointestinal: soft, non-tender, non-distended, normal bowel sounds, no palpable masses Extremities: no cyanosis, no clubbing, no edema Skin: normal turgor Neurological: cranial nerve grossly intact, no new deficit Neurological - other findings: dysarthria, dysphasia(chronic), L hemiparesis Musculoskeletal: generalized weakness Psychiatric: oriented to person, oriented to place Hosp A/P (1) Acute diastolic heart failure Code(s): I50.31 - ACUTE DIASTOLIC (CONGESTIVE) HEART FAILURE Status: Acute Plan: Stable currently, continue IV Lasix another 24h then convert to po Lasix, daily weight and I/O's, weight down approx 4lbs since admit (2) Acute respiratory failure with hypoxemia Code(s): J96.01 - ACUTE RESPIRATORY FAILURE WITH HYPOXIA Status: Acute Plan: Continue NC O2, overall improved (3) Elevated d-dimer Code(s): R79.89 - OTHER SPECIFIED ABNORMAL FINDINGS OF BLOOD CHEMISTRY Status: Acute Plan: Likely multifactorial including recent femur fx, CHF exacerbation, no V/Q scan available and unable to complete CTA due to CKD, currently with hematuria in [place] after receiving Lovenox, would not continue anticoagulation unless respiratory compromise or clinical decompensation (4) CKD stage 4 secondary to hypertension Code(s): I12.9 - HYPERTENSIVE CHRONIC KIDNEY DISEASE W STG 1-4/UNSP CHR KDNY; N18.4 - CHRONIC KIDNEY DISEASE, STAGE 4 (SEVERE) Status: Chronic (5) Diabetes mellitus Code(s): E11.9 - TYPE 2 DIABETES MELLITUS WITHOUT COMPLICATIONS Status: Chronic - Plan [employer]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
[2020-08-27 10:33] VITALS: BMI 5919.3
[2020-08-27 10:40] LABS: #Eosinphils 0.4 thou/uL (0.0-0.7); #Lymphocytes 1.6 thou/uL (1.20-3.40); #Monocytes 0.6 thou/uL (0.11-0.59); #Neutrophils 4.5 thou/uL (1.40-6.50); %Basophils 0.5 % (0.0-1.0); %Eosinophils 6.1 % (0.0-10.0); %Lymphocytes 22.3 % (21.0-51.0); %Monocytes 8.4 % (0.0-10.0); %Neutrophils 62.7 % (42.0-75.0); Hemoglobin 8.6 g/dL (12.0-16.0); Mean Corpuscular HGB CONC 31.5 g/dL (32.0-36.0); Mean Corpuscular Hemoglobin 29.1 pg (27.0-31.0); Mean Corpuscular Volume 92.4 fL (78.0-98.0); Mean Platelet Volume 9.9 fL (7.4-10.4); Platelet Count 159 thou/uL (130-400); RBC Distribution Width 14.9 % (11.5-14.5); Red Blood Cell (RBC) Count 2.96 mill/uL (4.20-5.40); White Blood Cell (WBC) Count 7.1 thou/uL (4.8-10.8)
[2020-08-27 11:11] LABS: Anion Gap 13 mmol/L (10-20); BUN (Urea Nitrogen) 29 mg/dL (9.8-20.1); Calc. Creatinine Clearance 32 mL/min (70-130); Calcium 8.5 mg/dL (7.8-10.44); Carbon Dioxide 25 mmol/L (23-31); Chloride 108 mmol/L (98-107); Estimated GFR-MDRD 22; Glucose 124 mg/dL (80-115); Potassium 4.4 mmol/L (3.5-5.1); Sodium 142 mmol/L (136-145)
[2020-08-27] MEDS ORDERED: Nitroglycerin 0.4 MG TAB (25 Tab Bottle) ONE (12:44)
--- NOTE | 2020-08-27 16:15 | PRG ---
DATE OF SERVICE: 08/27/2020 SUBJECTIVE: Ms. Dumont is in no distress. She is lying flat in bed. She is no longer on BiPAP. She has no new complaints. OBJECTIVE: VITAL SIGNS: She is afebrile. Blood pressure 141/69, heart rate in the 60s. Intake and outputs -239. LUNGS: Clear. HEART: Regular rhythm. ABDOMEN: Soft. LABORATORY DATA: White count 7.1, hemoglobin 8.6, and platelets 159. Sodium 142, potassium 4.4, chloride 108, bicarb 25, BUN 29, and creatinine 2.61. IMPRESSION AND PLAN: Diastolic heart failure with accelerated hypertension. She appears to be stabilizing. We will sign off. Job ID: [id number]
[2020-08-27] MEDS: Senokot S 8.6-50 MG TAB PO SCH (20:01)
[2020-08-27] MEDS: Melatonin 3 MG TAB PO SCH (20:02)
[2020-08-27] MEDS: Insulin Glargine 10 UNITS in Pre-Filled Syringe 1 EACH SC SCH (20:03)
[2020-08-28] MEDS: Furosemide 40 MG/4 ML VIAL SLOW IVP SCH (05:05)
[2020-08-28] MEDS: Enoxaparin Sodium 100 MG/ML SYRINGE SC SCH (10:15)
[2020-08-28] MEDS: Aspirin 325 mg Enteric Coated Tablet PO SCH (10:16)
[2020-08-28] MEDS: Chlorhexidine Gluconate 15 ML UDCUP SSP SCH (10:16)
[2020-08-28] MEDS: Carvedilol 6.25 MG TAB PO SCH (10:16)
[2020-08-28] MEDS: Ferrous Sulfate 325 MG TAB PO SCH (10:17)
[2020-08-28] MEDS: Famotidine 20 MG TAB PO SCH (10:18)
[2020-08-28] MEDS: hydrALAZINE 25 MG TAB PO SCH (10:19)
[2020-08-28] MEDS: Ascorbic Acid 500 mg Chewable Tablet PO SCH (10:19)
[2020-08-28] MEDS: Polyethylene Glycol 3350 17 GM Packet PO SCH (10:19)
[2020-08-28] MEDS: levETIRAcetam 500 MG TAB PO SCH (10:19)
[2020-08-28 10:24] VITALS: BP 154/64
[2020-08-28] MEDS: Polyvinyl Alcohol 1.4%/Povidone 0.6% Opth Drops EA EYE SCH ×2 (10:24→11:06)
[2020-08-28 11:31] VITALS: TEMP 98.7
--- NOTE | 2020-08-28 12:17 | PDOC.DS.DS ---
Provider - Provider Date of Admission: 08/26/20 00:01 Admitting Provider: Dg Stanley Consultations: Pulmonary Primary Care Physician: Angelica Feliciano MD Course - Hospital Course Hospital Course: 65-year-old female came from [facility] due to diastolic heart failure exacerbation as well as pneumonia with hypoxia. She also noted to have elevated D-dimer which is multifactorial including recent history of femur fracture, CHF exacerbation and CKD. Contraindicated for CT angiogram due to chronic kidney disease. She did had an episode of hematuria but that was cleared which could be due to receiving Lovenox as DVT prophylaxis. She was diuresed during her stay and lost over 4 pounds. She is euvolemic currently. She is stable to go back to the [facility]. Resuscitation Status: 08/26/20 00:41 Resuscitation Status Routine Resuscitation Status: FULL: Full Resuscitation - Labs Lab Results: 08/27/20 10:23 08/27/20 10:23 Abnormal Lab Results - Last 48 hrs 08/26/20 20:23: PT 15.3 H, APTT 36.4 H 08/27/20 00:02: Troponin I 0.150 H 08/27/20 10:23: RBC 2.96 L, Hgb 8.6 L, Hct 27.3 L, MCHC 31.5 L, RDW 14.9 H, Monocytes # 0.6 H 08/27/20 10:23: Chloride 108 H, BUN 29 H, Creatinine 2.61 H Microbiology - Entire Visit 08/25/20 22:57 Urine pearl catheter Urine Culture - Final - Physical Exam Vitals: Vital Signs (12 hours) Temp Pulse BP 08/28/20 11:31 98.7 F 08/28/20 10:19 62 154/64 H 08/28/20 10:16 154/64 H 08/28/20 07:23 97.8 F 08/28/20 03:58 98.2 F Weight Weight 206 lb 9.6 oz Most Recent Monitor Data Heart Rate from ECG 62 NIBP 149/68 NIBP BP-Mean 95 Respiration from ECG 16 SpO2 88 Physical Exam: The patient was seen and examined on the day of discharge. Discussed the care plan with RN She is at her baseline mentally. Her Pearl looks very clear urine. Will DC the Pearl bag prior to discharge her. Plan - Discharge Medications Home Medications: Medication Instructions Recorded Confirmed Type Bisacodyl [Dulcolax] 10 mg NE DAILY PRN 08/30/14 08/26/20 History Polyethylene Glycol 3350 [Miralax] 17 gm PO DAILY 08/30/14 08/26/20 History hydrALAZINE [Apresoline] 50 mg PO TID #0 tab 09/02/14 08/26/20 Rx levETIRAcetam [Keppra] 500 mg PO BID #0 tab 09/02/14 08/26/20 Rx Ipratropium/Albuterol Sulfate 3 ml NEB Q4HR PRN 01/09/15 08/26/20 History [DuoNeb] Sennosides/Docusate Sodium 1 tab PO HS 01/09/15 08/26/20 History [Senokot S] Artificial Tears [Tears Naturale 1 drop EA EYE BID 07/26/19 08/26/20 History Free] Chlorhexidine Gluconate 15 ml PO BID 07/26/19 08/26/20 History [Chlorhexidine Gluconate 0.12% Oral Rinse] Insulin Glargine,Hum.Rec.Anlog 10 unit SC HS 07/26/19 08/26/20 History [Lantus Solostar] Ondansetron HCl [Zofran] 8 mg PO Q4HR PRN 07/26/19 08/26/20 History Aspirin [Aspirin EC] 325 mg PO DAILY #30 tablet. 07/27/19 08/26/20 Rx Sertraline HCl 50 tab PO DAILY 08/19/19 08/26/20 History Carvedilol [Coreg] 12.5 mg PO BID-WM #0 tab 10/17/19 08/26/20 Rx Furosemide [Lasix] 40 mg PO DAILY-AC #0 tab 10/17/19 08/26/20 Rx Hyoscyamine Sulfate [Hyoscyamine 1 tab SL Q4H PRN 07/29/20 08/26/20 History Sulfate SL] Melatonin 3 mg PO HS 07/29/20 08/26/20 History Morphine Sulfate 0.25 ml PO Q3H PRN 07/29/20 08/26/20 History diphenhydrAMINE [Benadryl] 25 mg PO Q6H 07/29/20 08/26/20 History Ascorbic Acid [Vitamin C] 500 mg PO BID #0 tab 08/04/20 08/26/20 Rx Cepastat Lozenges 1 santos PO Q2H PRN santos 08/04/20 08/26/20 Rx Cyclobenzaprine [Flexeril] 5 mg PO TID PRN tab 08/04/20 08/26/20 Rx Ferrous Sulfate [Feosol] 325 mg PO BID tab 08/04/20 08/26/20 Rx Lactulose 30 gm PO DAILY udcup 08/04/20 08/26/20 Rx traMADol HCl [Ultram] 50 mg PO Q12H PRN tab 08/04/20 08/26/20 Rx Acetaminophen 650 mg PO Q6HR PRN 08/26/20 08/26/20 History Acetaminophen [Tylenol Extra 650 mg NE Q6HR 08/26/20 08/26/20 History Strength] Magnesium Hydroxide [Milk of 2,400 mg PO DAILY PRN 08/26/20 08/26/20 History Magnesia] Allergies: No Known Drug Allergies Allergy (Verified 08/26/20 03:38) - Discharge Instructions Activity:: Activity as Tolerated Nourishment:: Regular Diet - Follow up Plan Referrals: Angelica Feliciano MD [Primary Care Provider] - Disposition: HOME Quality - Care Measures CORE MEASURES:: N/A
--- NOTE | 2020-09-02 19:22 | EKG ---
Test Reason : C/O CHEST PAIN Blood Pressure : / mmHG Vent. Rate : 064 BPM Atrial Rate : 064 BPM P-R Int : 208 ms QRS Dur : 100 ms QT Int : 546 ms P-R-T Axes : 057 -27 071 degrees QTc Int : 563 ms Normal sinus rhythm Nonspecific T wave abnormality Abnormal ECG When compared with ECG of 25-AUG-2020 22:12, (Unconfirmed) Sinus rhythm has replaced Electronic atrial pacemaker QT has lengthened Confirmed by ZECHARIAH CARDENAS, DR. Del Toro ([id number]) on 09/02/2020 7:21:55 PM Referred By: ADWOA Confirmed By:DR. Katey APPLE MD
--- NOTE | 2020-09-05 14:23 | EKG ---
Test Reason : Blood Pressure : / mmHG Vent. Rate : 066 BPM Atrial Rate : 066 BPM P-R Int : 000 ms QRS Dur : 096 ms QT Int : 430 ms P-R-T Axes : 000 -15 080 degrees QTc Int : 450 ms Electronic atrial pacemaker Nonspecific T wave abnormality Abnormal ECG Confirmed by SURESH JHAVERI DO ([id number]), film or videotape editor LELIA SANZ ([id number]) on 09/05/2020 2:23:17 PM Referred By: Confirmed By:SURESH JHAVERI DO
== END 2020-08-28 15:15 | disposition home or self-care (01) | DRG 291 ==
LOC: ERS 21:58 → IMCU/EMU 08-26 00:01
PROVIDERS: ADMIT Internal Medicine; ATTEND Internal Medicine
PROC: 0T9B70Z Drainage of Bladder with Drainage Device, Via Natural or Artificial Opening (ICD-10-PCS; principal; 2020-08-26)
PROC: 5A09357 Assistance with Respiratory Ventilation, Less than 24 Consecutive Hours, Continuous Positive Airway Pressure (ICD-10-PCS; 2020-08-26)
DX: I13.0 Hypertensive heart and chronic kidney disease with heart failure and stage 1 through stage 4 chronic kidney disease, or unspecified chronic kidney disease (principal); I50.33 Acute on chronic diastolic (congestive) heart failure; J18.9 Pneumonia, unspecified organism; J96.01 Acute respiratory failure with hypoxia; N18.4 Chronic kidney disease, stage 4 (severe); J44.0 Chronic obstructive pulmonary disease with (acute) lower respiratory infection; D68.32 Hemorrhagic disorder due to extrinsic circulating anticoagulants; Z20.828 Contact with and (suspected) exposure to other viral communicable diseases; I48.91 Unspecified atrial fibrillation; I25.10 Atherosclerotic heart disease of native coronary artery without angina pectoris; G40.909 Epilepsy, unspecified, not intractable, without status epilepticus; H04.129 Dry eye syndrome of unspecified lacrimal gland; M24.542 Contracture, left hand; M32.9 Systemic lupus erythematosus, unspecified; K21.9 Gastro-esophageal reflux disease without esophagitis; E78.5 Hyperlipidemia, unspecified; E78.00 Pure hypercholesterolemia, unspecified; F32.9 Major depressive disorder, single episode, unspecified; I16.0 Hypertensive urgency; E11.22 Type 2 diabetes mellitus with diabetic chronic kidney disease; T45.515A Adverse effect of anticoagulants, initial encounter; R31.9 Hematuria, unspecified; Z95.0 Presence of cardiac pacemaker; Z86.73 Personal history of transient ischemic attack (TIA), and cerebral infarction without residual deficits; Z90.710 Acquired absence of both cervix and uterus; Z79.899 Other long term (current) drug therapy; Z79.4 Long term (current) use of insulin
CPT/HCPCS: 36415; 36416; 51702; 71045; 80048; 80053; 81003; 81015; 82553; 83605; 83735; 83880; 84443; 84484; 85025; 85379; 85610; 85730; 87086; 87635; 93005; 93010; 93970; 94640; 94660; 94760; 96365; 96366; 96372; 96375; J0696; J1650; J1815; J1940; J3490; U0003